=== PATIENT | female | born 1960 | race Caucasian/White ===

== ENCOUNTER 2020-10-08 12:33 | Emergency (ER) | payer OTHER, SELFPAY ==
--- NOTE | ~2020-10-08 | XR_ITS ---
XR finger 2nd RT min 2V 10/08/2020 12:59 Indication: Right second finger pain after dog bite Procedure: 4 views right second finger Comparison: No prior studies for comparison. Findings: There is a tuft fracture right second distal phalanx. Mild soft tissue swelling. No foreign body identified. There is polyarticular osteoarthritis. Impression: 1: Tuft fracture right second distal phalanx. Reviewed, dictated and finalized at location A. Impression: 1: Tuft fracture right second distal phalanx.
[2020-10-08 12:36] VITALS: BP 128/72; PULSE 78; RESP 18; TEMP 36.1; O2SAT 100
--- NOTE | 2020-10-08 13:05 | ED.ANIMALBIT ---
HPI - Animal Bite General Chief Complaint: Animal Bite Stated Complaint: Dog Bites Time Seen by Provider: 10/08/20 12:40 History of Present Illness HPI narrative: 60 yo female w/ no significant PMH presents to the ED for dog bites. She was attempting to break up a fight between her 2 dogs when she sustained bites to both hands. The dogs are up to date on the vaccinations. Unsure of her last tetanus shot. Pain is moderate. No weakness, numbness. Related Data Allergies Allergy/AdvReac Type Severity Reaction Status Date / Time aspirin Allergy Mild Vomiting Verified 10/08/20 12:50 codeine Allergy Unknown Hives Verified 10/08/20 12:50 Review of Systems Review of Systems: All systems reviewed & are unremarkable except as noted in HPI and below PMFSH Family History Family History Other Diabetes mellitus Family history of arthritis Family history of cardiovascular disease Family history of malignant neoplasm Hypertension Social History Social History Alcohol intake: current Exam Const: General: healthy appearing, no acute distress and alert Orientation/consciousness: patient oriented x3 HENMT: Head: normal to inspection Resp: Effort & Inspection: normal respiratory effort Auscultation: clear to auscultation bilaterally, no rales, no rhonchi and no wheezes Cardio: Jugular venous distension: no JVD Rate: regular rate Rhythm: regular rhythm Heart sounds: no murmurs Other: 2+ radial pulses bilaterally Skin: Other: Superficial skin tears to left hand. Puncture wound to distal right index finger. Minimal damage to nail and nail bed. Neuro: General: patient oriented x3 and moves all extremities Speech: normal speech Gait exam (Neuro): Normal gait present Extrem: Other: Full ROM in all hands and fingers. Psych: Appearance: well kempt Affect: normal affect Course Vital Signs Vital signs: Vital Signs Temperature 36.1 C L 10/08/20 12:36 Pulse Rate 78 10/08/20 12:36 Respiratory Rate 18 10/08/20 12:36 Blood Pressure 128/72 10/08/20 12:36 Pulse Oximetry 100 10/08/20 12:36 Temperature 36.1 C L 10/08/20 12:36 Pulse Rate 78 10/08/20 12:36 Respiratory Rate 18 10/08/20 12:36 Blood Pressure 128/72 10/08/20 12:36 Pulse Oximetry 100 10/08/20 12:36 MDM - Animal Bite MDM Narrative Medical decision making narrative: She has an open fracture of the right index finger. Wound washed out extensively. tetanus up dated. Augmentin started. PLaced in finger splint. Dr. Triplett consulted. he will see her in clinic this week. Medical Records Attestation: I reviewed the patient's medical records. Imaging Data Radiologist's impression: ITS Impressions Finger X-Ray 10/08/20 13:05 Impression: 1: Tuft fracture right second distal phalanx. Discharge Plan Discharge Clinical Impression: Open fracture of tuft of distal phalanx of finger Dog bite Qualifiers: Encounter type: initial encounter Qualified Code(s): W54.0XXA - Bitten by dog, initial encounter Patient Disposition: Home, Self-Care Condition: Stable Instructions: Antibiotic Form, Animal Bite (ED), Finger Fracture (ED) Prescriptions: New amoxicillin-pot clavulanate [Augmentin] 875-125 mg tablet 1 tablet PO Q12H Qty: 20 RF: 0 Follow-up/Referrals: Dano Triplett MD [Physician] - Mer,OSCAR Salomon [Primary Care Provider] -
[2020-10-08] MEDS: AMOXICILLIN/CLAVULANATE K 875-125 MG TAB 1 TABLET PO (13:27)
[2020-10-08] MEDS: TETANUS,DIPHTHERIA,AC PERTUSSIS ADULT (0.5 ML) BOOSTRIX IM (13:27)
--- NOTE | 2020-10-19 09:43 | PC.NURSE ---
LATE ENTRY This note is being entered to document information to the patient's record. The following information was omitted on [10/19/20], by [Miri PRINCE for metal finger splint].
== END 2020-10-08 13:43 | disposition home or self-care (01) ==
LOC: ANHED 13:19
PROVIDERS: Emergency Provider Emergency Medicine; PCP Physician Assistant
DX: S62.630B Displaced fracture of distal phalanx of right index finger, initial encounter for open fracture (principal); W54.0XXA Bitten by dog, initial encounter; Z23 Encounter for immunization
CPT/HCPCS: 29130; 73140; 90471; 90715; 99283; A9270

== ENCOUNTER 2020-11-06 20:41 | Emergency (ER) | payer OTHER, SELFPAY ==
[2020-11-06 20:50] VITALS: BP 147/71; PULSE 124; RESP 18; TEMP 38; O2SAT 95
[2020-11-06 21:06] LABS: Basophils Percent Auto 0.3 % (0.2-1.2); Eosinophils Percent Auto 0.5 % (0-4.4); Hematocrit 35.7 % (37.0-47.0); Hemoglobin 11.9 g/dL (12.0-15.0); Immature Granulocyte Absolute 0.01 K/mm3 (0.00-0.031); Immature Granulocyte Percent A 0.1 % (0-0.5); Lymphocytes Absolute Auto 0.79 K/mm3 (0.9-3.2); Lymphocytes Percent Auto 10.6 % (18.3-44.2); Mean Corpuscular HGB Conc 33.3 g/dl (32-36); Mean Corpuscular Hemoglobin 29.2 pg (26-34); Mean Corpuscular Volume 87.5 fl (80-100); Mean Platelet Volume 9.3 fl (7.4-10.4); Monocytes Absolute Auto 0.1 K/mm3 (0.1-0.6); Monocytes Percent Auto 0.7 % (2.6-8.5); Neutrophils Absolute Auto 6.5 K/mm3 (1.3-6.7); Neutrophils Percent Auto 87.8 % (45.5-73.1); Platelet Count Result 163 k/mm3 (150-375); Red Blood Count 4.08 M/mm3 (4.2-5.4); Red Cell Distribution Width 13.7 % (11.5-14.5); White Blood Count 7.4 K/mm3 (4.5-10.0)
[2020-11-06 21:14] LABS: Lactic Acid Reflex 1.8 mmol/L (0.7-2.1)
[2020-11-06 21:15] LABS: INR 1.1; Prothrombin Time 14.3 Seconds (11.1-14.7)
[2020-11-06 21:15] LABS: Alanine Aminotransferase 74 U/L (4-35); Albumin Level 4.2 g/dL (3.5-5.1); Alkaline Phosphatase 97 U/L (38-126); Anion Gap 10 mmol/L (8-16); Aspartate Amino Transferase 103 U/L (14-36); Bilirubin,Total 0.7 mg/dL (0.2-1.3); Blood Urea Nitrogen 10 mg/dL (7-17); Calcium 9.1 mg/dL (8.4-10.2); Carbon Dioxide 21 mmol/L (22-30); Chloride 105 mmol/L (98-107); Estimated CRCL calculation 66 ml/min; Estimated Glomerular Filt Rate > 60; Glucose 127 mg/dL (65-105); Potassium 3.9 mmol/L (3.4-5.0); Sodium 136 mmol/L (137-145)
[2020-11-06 21:16] LABS: Partial Thromboplastin Time 29.6 SECONDS (22.3-36.8)
[2020-11-06 21:30] LABS: Bacteria Urine Trace /hpf; Mucus Urine Rare /lpf; RBC Urine 21-50 /hpf (0-2); Squamous Epithelial Cell Urine Occasional /hpf (Few); WBC Urine >75 /hpf
[2020-11-06 21:39] LABS: Add Urine Microscopic? YES; Appearance Urine Clear (Clear); Bilirubin Urine Negative (Negative); Blood Urine 2+ (Negative); Color Urine Yellow (Yellow); Glucose Urine UA Negative (Negative); Ketones Urine Negative (Negative); Leukocyte Esterase Ur 1+ LEU/UL (Negative); Nitrate Urine Negative (Negative); Protein Urine 2+ mg/dL (Negative); Specific Grav Ur 1.025 (1.001-1.035)
--- NOTE | 2020-11-06 22:28 | ED.ABDPAIN ---
HPI - Abdominal Pain General Chief Complaint: Urogenital-Female Stated Complaint: uti Time Seen by Provider: 11/06/20 21:56 Source: patient Mode of arrival: ambulatory Limitations: no limitations History of Present Illness HPI narrative: 60-year-old with no major medical problems here with complaints of urinary frequency and burning for past 3 days. Patient states that she took Azo with no relief. She states that she was at work she had intense pain in the lower abdomen. She denies any fever or chills. She also states that she was nauseated and threw up once. MD elicited complaint: abdominal pain Pain Consistency: constant Location: suprapubic Severity: moderate Quality: sharp Migration to: no migration Relieving factors: nothing Related Data Allergies Allergy/AdvReac Type Severity Reaction Status Date / Time aspirin Allergy Mild Vomiting Verified 10/08/20 12:50 codeine Allergy Unknown Hives Verified 10/08/20 12:50 Review of Systems Review of Systems: All systems reviewed & are unremarkable except as noted in HPI and below Constitutional: Constitutional: Reports no additional constitutional complaints Eyes: Eyes: Reports no additional eye complaints ENT: Reports system reviewed and no additional complaints, except as documented Cardiovascular: Cardiovascular: Reports no additional cardiovascular complaints Respiratory: Respiratory: Reports no additional respiratory complaints Gastrointestinal: Gastrointestinal: Reports no additional gastrointestinal complaints Genitourinary: Genitourinary: Reports as per HPI Musculoskeletal: Musculoskeletal: Reports no additional musculoskeletal complaints Integumentary/Breasts: Skin/Breast: Reports system reviewed and no additional complaints, except as docu PMFSH Family History Family History Other Diabetes mellitus Family history of arthritis Family history of cardiovascular disease Family history of malignant neoplasm Hypertension Social History Social History Alcohol intake: current Gender identity (if verbalized by the patient): Female Exam Narrative: Exam Narrative: GENERAL: Well-appearing, well-nourished, and in no acute distress. HEAD: Normocephalic, atraumatic. EYES: PERRLA and EOMI. NECK: Supple. CHEST: Clear to auscultation. No respiratory distress. HEART: Regular rate and rhythm. No murmur heard. Normal peripheral pulses. ABDOMEN: Soft, mild suprapubic tenderness , nondistended, normal active bowel sounds. No CVA tenderness EXTREMITIES: Normal range of motion. No edema. SKIN: Warm, dry, no rash. NEURO: No focal deficits. Alert and oriented x3. PSYCH: Normal mood and affect. Course Course Emergency Course: Inform patient about her lab work. Advised her to drink plenty of fluids take antibiotic as prescribed. Vital Signs Vital signs: Vital Signs Temperature 38.0 C H 11/06/20 20:50 Pulse Rate 124 H 11/06/20 20:50 Respiratory Rate 18 11/06/20 20:50 Blood Pressure 147/71 H 11/06/20 20:50 Pulse Oximetry 95 11/06/20 20:50 Temperature 38.0 C H 11/06/20 20:50 Pulse Rate 124 H 11/06/20 20:50 Respiratory Rate 18 11/06/20 20:50 Blood Pressure 147/71 H 11/06/20 20:50 Pulse Oximetry 95 11/06/20 20:50 MDM - Abdominal Pain Lab Data Result diagrams: 11/06/20 20:54 11/06/20 20:54 Labs: Lab Results 11/06/20 11/06/20 11/06/20 Range/Units 20:53 20:54 20:54 WBC 7.4 (4.5-10.0) K/mm3 RBC 4.08 L (4.2-5.4) M/mm3 Hgb 11.9 L (12.0-15.0) g/dL Hct 35.7 L (37.0-47.0) % MCV 87.5 (80-100) fl MCH 29.2 (26-34) pg MCHC 33.3 (32-36) g/dl RDW 13.7 (11.5-14.5) % Plt Count 163 (150-375) k/mm3 MPV 9.3 (7.4-10.4) fl Immature Gran % (Auto) 0.1 (0-0.5) % Neut % (Auto) 87.8 H (45.5-73.1) % Lymph % (Auto) 10.6 L (18.3-44.2) % M
[2020-11-06 22:49] VITALS: BP 132/86; PULSE 94; RESP 16; TEMP 36.8; O2SAT 99
[2020-11-06] MEDS: CIPROFLOXACIN 500 MG TAB PO (22:49)
== END 2020-11-06 22:50 | disposition home or self-care (01) ==
PROVIDERS: Emergency Medicine; Emergency Provider Family Medicine; PCP Physician Assistant
DX: N39.0 Urinary tract infection, site not specified (principal)
CPT/HCPCS: 36415; 80053; 81001; 83605; 85025; 85610; 85730; 87077; 87086; 87088; 87186; 99283; A9270

== ENCOUNTER 2020-11-09 14:15 | Inpatient (IN) | payer OTHER, SELFPAY ==
--- NOTE | ~2020-11-09 | CT_ITS ---
EXAMINATION: CT abdomen pelvis wo con EXAM DATE: 11/09/2020 14:45 INDICATION: Abdominal pain L flank and groin pain w/ N/V, and painful urination x5days. TECHNIQUE: Spiral CT of the abdomen and pelvis was performed without contrast. Axial, coronal and sag ittal images were reviewed. The dose-length product (DLP) for this examination was 344.55 mGy-cm. T he exposure was tailored according to patient size (auto mA exposure control), and iterative reconstr uction (ASIR) was used as additional dose reduction technique. There is no prior study for compariso n. FINDINGS: There is no nephrolithiasis or hydronephrosis. The uterus is not identified and has likel y been surgically resected. The bladder is undistended at time of imaging. The liver, spleen, adren al glands and pancreas are unremarkable. Gallbladder is unremarkable. No biliary obstruction. Ther e is no retroperitoneal or pelvic lymphadenopathy. Gggg-[id number] tiny umbilical fat-containing h ernia. The appendix is normal. There is mild sigmoid colonic diverticulosis. There is no adjacent inflammat ory change to suggest diverticulitis. The stomach and small bowel are unremarkable. There is expecte d amount of colonic stool. No free intraperitoneal gas. The heart is normal in size. There are n o pericardial or pleural effusions. The lung bases are unremarkable. There is mild to moderate insurance adviser corrina compression fracture of the L1 vertebral body. There is advanced lower lumbar facet arthropathy. IMPRESSION: 1. No nephrolithiasis, hydronephrosis or acute intra-abdominal findings. Reviewed, dictated and finalized at location A.
[2020-11-09 14:56] VITALS: BP 156/83; PULSE 100; RESP 20; TEMP 37.8; O2SAT 99
[2020-11-09 14:59] LABS: Basophils Absolute Auto 0.04 K/mm3 (0.00-0.10); Basophils Percent Auto 0.4 % (0.0-1.0); Eosinophils Absolute Auto 0.02 K/mm3 (0.02-0.50); Eosinophils Percent Auto 0.2 % (1.0-6.0); Hematocrit 33.1 % (35.0-49.0); Hemoglobin 11.1 g/dL (12.0-15.0); Immature Granulocyte Absolute 0.04 K/mm3 (0.00-0.00); Immature Granulocyte Percent A 0.4 % (0.0-0.0); Lymphocytes Absolute Auto 0.71 K/mm3 (1.10-4.50); Lymphocytes Percent Auto 7.4 % (18.0-42.0); Mean Corpuscular HGB Conc 33.5 g/dL (32.0-36.0); Mean Corpuscular Hemoglobin 29.6 pg (27.0-31.0); Mean Corpuscular Volume 88.3 fL (78.0-102.0); Mean Platelet Volume 9.3 fl (9.2-11.8); Monocytes Absolute Auto 0.46 K/mm3 (0.10-0.90); Monocytes Percent Auto 4.8 % (2.0-11.0); Neutrophils Absolute Auto 8.3 K/mm3 (1.7-7.2); Neutrophils Percent Auto 86.8 % (50.0-70.0); Platelet Count Result 186 K/mm3 (150-420); Red Blood Count 3.75 M/mm3 (4.20-5.40); Red Cell Distribution Width 13.6 % (11.6-14.4); White Blood Count 9.6 K/mm3 (4.8-10.8)
[2020-11-09 15:05] LABS: Appearance Urine Clear (Clear); Bilirubin Urine Negative (Negative); Blood Urine 2+ (Negative); Glucose Urine UA Negative (Negative); Ketones Urine Negative (Negative); Leukocyte Esterase Ur 3+ (Negative); Nitrate Urine Negative (Negative); Protein Urine Trace (Negative); Urobilinogen Urine 0.2 mg/dL (0.2-1.0)
[2020-11-09] MEDS: IBUPROFEN 600 MG TABLET PO (15:06)
[2020-11-09 15:10] LABS: Add Urine Microscopic? YES; Bacteria Urine 3+ /hpf; Color Urine Light Yellow (Yellow); Squamous Epithelial Cell Urine Rare /hpf (Few); WBC Urine 16-20 /hpf (0-3)
[2020-11-09 15:14] LABS: Alanine Aminotransferase 181 U/L (14-59); Albumin Level 3.4 g/dL (3.4-5.0); Alkaline Phosphatase 225 U/L (46-116); Anion Gap 11 mmol/L (8-16); Aspartate Amino Transferase 103 U/L (15-37); Bilirubin,Total 0.5 mg/dL (0.00-1.00); Blood Urea Nitrogen 7 mg/dL (7-18); Calcium 8.6 mg/dL (8.5-10.1); Carbon Dioxide 26 mmol/L (21-32); Chloride 101 mmol/L (98-108); Estimated CRCL calculation 50 ml/min; Estimated Glomerular Filt Rate 51; Glucose 123 mg/dL (70-99); Osmolality Calculated 285 mOsm/kg (285-295); Potassium 3.2 mmol/L (3.5-5.1); Sodium 138 mmol/L (136-145); Total Protein 6.9 g/dL (6.4-8.2)
--- NOTE | 2020-11-09 15:55 | ED.FEMALEGU ---
HPI - Female Genitourinary General Chief complaint: Urogenital-Female Stated complaint: fever, chills diagnoed with UTI Friday Source: patient and family Mode of arrival: ambulatory Limitations: no limitations History of Present Illness HPI Narrative: this is a 60-year-old female that was recently seen at [facility] and started on p.o. antibiotics for urinary tract infection. The patient presents to our emergency department with continued urinary tract symptoms of flank discomfort and suprapubic pain with some dysuria with no hematuria fevers up to 102. Currently there is no nausea vomiting no shortness of breath no chest pain. MD elicited complaint: UTI Onset (ago): day(s) Location of symptoms: suprapubic Severity: moderate Female Urogenital Radiation: Suprapubic Severity scale (1-10): 6 Quality of pain: burning Consistency: constant Urinary symptoms: Dysuria and Flank Pain Exacerbating factors: urination Associated symptoms: weakness and fever Related Data Allergies Allergy/AdvReac Type Severity Reaction Status Date / Time aspirin Allergy Mild Vomiting Verified 10/08/20 12:50 codeine Allergy Unknown Hives Verified 10/08/20 12:50 Review of Systems Review of Systems: All systems reviewed & are unremarkable except as noted in HPI and below PMFSH Past Medical History Medical History Patient denies medical problems Family History Family History Other Diabetes mellitus Family history of arthritis Family history of cardiovascular disease Family history of malignant neoplasm Hypertension Social History Social History Alcohol intake: current Gender identity (if verbalized by the patient): Female Exam Const: General: no acute distress and alert HENMT: Head: normal to inspection Eyes: Conjunctivae: conjunctivae normal Pupils: Equal, round and reactive pupils present EOM: EOMs intact bilaterally Neck: Neck: normal visual inspection, no lymphadenopathy and no meningeal signs Resp: Effort & Inspection: normal respiratory effort Auscultation: clear to auscultation bilaterally Cardio: Rate: regular rate Rhythm: regular rhythm GI: GI Palp: Yes Tenderness to palpation present (GI) Urinary Catheter: Urinary Catheter: patent and draining Back/Spine/Pelvis: Back: CVA tenderness Skin: General skin exam: normal color Rashes: no rashes Neuro: General: patient oriented x3, moves all extremities, no meningeal signs and no focal motor deficits Extrem: General: normal to inspection and no pedal edema Psych: Mental Status: mental status grossly normal Affect: normal affect Course Course Emergency Course: patient received IV ceftriaxone and reviewed labs and a urinalysis along with some her CT scan and will admit the patient for observation. Vital Signs Vital signs: Vital Signs Temperature 37.8 C H 11/09/20 14:56 Pulse Rate 100 11/09/20 14:56 Respiratory Rate 20 11/09/20 14:56 Blood Pressure 156/83 H 11/09/20 14:56 Pulse Oximetry 99 11/09/20 14:56 Temperature 37.8 C H 11/09/20 14:56 Pulse Rate 100 11/09/20 14:56 Respiratory Rate 20 11/09/20 14:56 Blood Pressure 156/83 H 11/09/20 14:56 Pulse Oximetry 99 11/09/20 14:56 MDM - Female Genitourinary Lab Data Result diagrams: 11/09/20 14:53 11/09/20 14:53 Labs: Lab Results 11/09/20 11/09/20 11/09/20 Range/Units 14:30 14:53 14:53 WBC 9.6 (4.8-10.8) K/mm3 RBC 3.75 L (4.20-5.40) M/mm3 Hgb 11.1 L (12.0-15.0) g/dL Hct 33.1 L (35.0-49.0) % MCV 88.3 (78.0-102.0) fL MCH 29.6 (27.0-31.0) pg MCHC 33.5 (32.0-36.0) g/dL RDW 13.6 (11.6-14.4) % Plt Count 186 (150-420) K/mm3 MPV 9.3 (9.2-11.8) fl Immature Gran % (Auto) 0.4 H (0.0-0.0) % Neut % (Auto) 86.8 H (50.0-70.
[2020-11-09 16:19] VITALS: BP 110/60; PULSE 77; RESP 20; TEMP 36.9; O2SAT 99
[2020-11-09 16:44] VITALS: PULSE 78; RESP 20; O2SAT 99
[2020-11-09 17:00] VITALS: BMI 21.6
--- NOTE | 2020-11-09 17:00 | ADMGEN ---
This patient, Surekha Fisher, was admitted to 2nd Floor Room 209-1 for pyelonephritis. Patient/family oriented to hospital policies and general routines including ID bracelet, bed and alarms, visiting hours, pain management, procedures, bathroom and other care routines, personal items, smoking policy, room service/diet, and visiting hours. Patient states that she had her COVID vaccine in Jul 2020 and JUL 2020 Information on how to activate the Rapid Response Team has been discussed. Patient/Family are encouraged to report perceived risks to care and to ask questions if they do not understand what they are told or what they should do.
[2020-11-09] MEDS: SODIUM CHLORIDE 0.9% IV 1,000 ML 100 ML IV CONT (17:22)
[2020-11-09 20:00] VITALS: BP 110/61; PULSE 63; TEMP 37.1; O2SAT 98
[2020-11-10] VITALS (7 sets, daily range): BP systolic 110–129; BP diastolic 61–75; PULSE 61–88; RESP 14–18; TEMP 36.8–37.8; O2SAT 93–98
--- NOTE | 2020-11-10 00:05 | PC.NURSE ---
Patient c/o nausea, chills, and heartburn. PRN mylanta and tylenol given,
[2020-11-10] MEDS: MAG HYDROX/AL HYDROX/SIMETH 30 ML UDC PO (00:10)
[2020-11-10] MEDS: ACETAMINOPHEN 325 MG TABLET 650 MG PO ×2 (00:10→07:56)
--- NOTE | 2020-11-10 00:25 | PC.NURSE ---
Patient reports improvement in nausea and chills. No emesis
[2020-11-10] MEDS: SODIUM CHLORIDE 0.9% IV 1,000 ML 100 ML IV CONT ×2 (04:12→14:19)
[2020-11-10 05:37] LABS: Basophils Absolute Auto 0.02 K/mm3 (0.00-0.10); Basophils Percent Auto 0.2 % (0.0-1.0); Eosinophils Absolute Auto 0.02 K/mm3 (0.02-0.50); Eosinophils Percent Auto 0.2 % (1.0-6.0); Hematocrit 29.8 % (35.0-49.0); Hemoglobin 9.9 g/dL (12.0-15.0); Immature Granulocyte Absolute 0.04 K/mm3 (0.00-0.00); Immature Granulocyte Percent A 0.5 % (0.0-0.0); Lymphocytes Absolute Auto 1.02 K/mm3 (1.10-4.50); Lymphocytes Percent Auto 12.5 % (18.0-42.0); Mean Corpuscular HGB Conc 33.2 g/dL (32.0-36.0); Mean Corpuscular Hemoglobin 29.2 pg (27.0-31.0); Mean Corpuscular Volume 87.9 fL (78.0-102.0); Mean Platelet Volume 9.7 fl (9.2-11.8); Monocytes Absolute Auto 0.78 K/mm3 (0.10-0.90); Monocytes Percent Auto 9.5 % (2.0-11.0); Neutrophils Absolute Auto 6.3 K/mm3 (1.7-7.2); Neutrophils Percent Auto 77.1 % (50.0-70.0); Platelet Count Result 166 K/mm3 (150-420); Red Blood Count 3.39 M/mm3 (4.20-5.40); Red Cell Distribution Width 13.8 % (11.6-14.4); White Blood Count 8.2 K/mm3 (4.8-10.8)
[2020-11-10 05:57] LABS: Alanine Aminotransferase 183 U/L (14-59); Albumin Level 2.8 g/dL (3.4-5.0); Alkaline Phosphatase 225 U/L (46-116); Anion Gap 9 mmol/L (8-16); Aspartate Amino Transferase 112 U/L (15-37); Bilirubin,Total 0.4 mg/dL (0.00-1.00); Blood Urea Nitrogen 6 mg/dL (7-18); Calcium 8.2 mg/dL (8.5-10.1); Carbon Dioxide 27 mmol/L (21-32); Chloride 105 mmol/L (98-108); Estimated CRCL calculation 63 ml/min; Estimated Glomerular Filt Rate > 60; Glucose 117 mg/dL (70-99); Osmolality Calculated 290 mOsm/kg (285-295); Potassium 3.5 mmol/L (3.5-5.1); Sodium 141 mmol/L (136-145); Total Protein 6.1 g/dL (6.4-8.2)
--- NOTE | 2020-11-10 07:30 | PCDIET ---
pt resting in bed, reports will attempt to eat some breakfast, no n/v at this time
--- NOTE | 2020-11-10 09:05 | PC.NURSE ---
pt is found in bathroom vomiting in toilet and emesis on floor, pt reports food did not sit well, Wilian MACHINE PRECISION ENGRAVER in room and will order anti-nausea medication
[2020-11-10] MEDS: ONDANSETRON INJ 4 MG/2 ML VIAL IV PUSH ×2 (09:15→16:05)
--- NOTE | 2020-11-10 09:56 | PM.IMHP ---
H&P: HPI History of Present Illness Date/Time: 11/10/20 09:56 Pt is admitted into Observation for treatment of an unresolved UTI. Surekha Fisher is a 60 year old female who comes to the hospital for UTI symptoms that are not resolving after being seen at an [facility] and treated with Cipro. Pt states she was having flank pain and lower abdominal pain that would change sides. This morning her pain is lower abdomen and lower right abdomen and improving. Pt was nauseated with vomiting this AM. She is better now after Zofran. Pt denies any other issues at this time. <REBEKAH BennettC - Last Filed: 11/10/20 13:38> Chief Complaint: Flank and abdominal pain, Dysuria <MEGGAN Bennett - Last Filed: 11/10/20 13:38> Review of Systems Constitutional: Constitutional: Reports no additional constitutional complaints, Denies body ache(s), Denies chills, Denies fever(s) and Denies headache(s) <REBEKAH BennettC - Last Filed: 11/10/20 13:38> Cardiovascular: Cardiovascular: Reports no additional cardiovascular complaints, Denies chest pain and Denies chest pain at rest <MEGGAN Bennett - Last Filed: 11/10/20 13:38> Respiratory: Respiratory: Reports no additional respiratory complaints, Denies cough, Denies dyspnea and Denies dyspnea on exertion <REBEKAH BennettC - Last Filed: 11/10/20 13:38> Gastrointestinal: Gastrointestinal: Reports abdominal pain (as noted in HPI) <REBEKAH BennettC - Last Filed: 11/10/20 13:38> Musculoskeletal: Musculoskeletal: Reports no additional musculoskeletal complaints <Ignacio Fay APN-C - Last Filed: 11/10/20 13:38> Neurologic: Reports system reviewed and no additional complaints, except as documented, Denies dizziness, Denies headache(s) and Denies numbness <REBEKAH BennettC - Last Filed: 11/10/20 13:38> Psychiatric: Psychiatric: Reports no additional psychiatric complaints <REBEKAH BennettC - Last Filed: 11/10/20 13:38> [facility] Past Medical History Medical History: Medical History (Updated 11/10/20 @ 13:03 by MEGGAN Bennett) Closed fracture of left tibial plateau Closed nondisp fx of lateral condyle of left tibia w/delayed healing Lumbar radiculopathy, acute Patient denies medical problems <MEGGAN Bennett - Last Filed: 11/10/20 13:38> Family History Family History: Family History Other Diabetes mellitus Family history of arthritis Family history of cardiovascular disease Family history of malignant neoplasm Hypertension <MEGGAN Bennett - Last Filed: 11/10/20 13:38> Social History Social History: Social History Years smoked: 5 Smoking status: Former smoker Tobacco type: cigarettes Alcohol intake: never Substance use: never Gender identity (if verbalized by the patient): Female Sexual Orientation (if Verbalized by the Patient): Straight or Heterosexual Spiritual care concerns: No <MEGGAN Bennett - Last Filed: 11/10/20 13:38> Meds Home Medications and Allergies Home medications: Home Medications Medication Instructions Recorded Confirmed Type ciprofloxacin HCl 500 mg PO Q12H #14 tablet 11/06/20 11/09/20 Rx <MEGGAN Bennett - Last Filed: 11/10/20 13:38> Allergies/Adverse reactions: Allergies Allergy/AdvReac Type Severity Reaction Status Date / Time aspirin Allergy Mild Vomiting Verified 10/08/20 12:50 codeine Allergy Unknown Hives Verified 10/08/20 12:50 amoxicillin [From Augmentin] Allergy Unknown Verified 11/09/20 16:18 clavulanic acid Allergy Unknown Verified 11/09/20 16:18 [From Augmentin] <MEGGAN Bennett - Last Filed: 11/10/20 13:38> Vital Signs Vital Signs - 24 hr 11/09/20 14:56 11/09/20 16:19 11/09/20 16:44 Temperature 100.1 F H 98.4 F Pulse Rate 100 77 78 Respiratory Rate 20 20 20 Blood Pre
--- NOTE | 2020-11-10 10:35 | PC.NURSE ---
pt resting in bed, reports feeling better at this time, denies any needs at this time.
--- NOTE | 2020-11-10 11:31 | PC.NURSE ---
pt resting in bed, states she will attempt to eat lunch, denies any n/v at this time.
--- NOTE | 2020-11-10 12:40 | PC.NURSE ---
pt reports no nausea or emesis after eating lunch
--- NOTE | 2020-11-10 13:36 | PC.NURSE ---
pt sleeping, respirations even and regular, no evidence of distress noted at this time.
--- NOTE | 2020-11-10 16:00 | PC.NURSE ---
pt c/o nausea, and just not feeling well pt vital obtained, temp of 100.1, pt reports she cannot swallow tylenol for the fever at this time.
--- NOTE | 2020-11-10 17:10 | PC.NURSE ---
pt unable to eat dinner, c/o nausea and episode of dry heaves, family at bedside
--- NOTE | 2020-11-10 18:39 | PC.NURSE ---
pt is sleeping, respirations even and regular, no evidence of distress noted.
--- NOTE | 2020-11-10 21:20 | PC.NURSE ---
pt called out with c/o nausea, no emesis yet, pt states may be from the new antibiotic
[2020-11-10] MEDS: PROCHLORPERAZINE EDISYLATE 10 MG/2 ML VIAL 5 MG IV PUSH (21:23)
--- NOTE | 2020-11-10 21:52 | PC.NURSE ---
pt reports she feels much better at this time
--- NOTE | 2020-11-10 22:30 | PC.NURSE ---
Resting quietly, fluids infusing, no further nausea noted
[2020-11-11] MEDS: SODIUM CHLORIDE 0.9% IV 1,000 ML 100 ML IV CONT ×3 (00:57→20:46)
[2020-11-11 04:00] VITALS: BP 126/75; PULSE 68; RESP 20; TEMP 36.4; O2SAT 94
[2020-11-11] MEDS: PROCHLORPERAZINE EDISYLATE 10 MG/2 ML VIAL 5 MG IV PUSH (04:16)
--- NOTE | 2020-11-11 04:20 | PC.NURSE ---
Pt complained of nausea. Compazine given IV per RN.
[2020-11-11 05:40] LABS: Hematocrit 29.3 % (35.0-49.0); Hemoglobin 9.8 g/dL (12.0-15.0); Mean Corpuscular HGB Conc 33.4 g/dL (32.0-36.0); Mean Corpuscular Hemoglobin 29.3 pg (27.0-31.0); Mean Corpuscular Volume 87.7 fL (78.0-102.0); Mean Platelet Volume 9.7 fl (9.2-11.8); Platelet Count Result 180 K/mm3 (150-420); Red Blood Count 3.34 M/mm3 (4.20-5.40); Red Cell Distribution Width 13.7 % (11.6-14.4); White Blood Count 8.4 K/mm3 (4.8-10.8)
[2020-11-11 05:46] LABS: Anion Gap 10 mmol/L (8-16); Blood Urea Nitrogen 6 mg/dL (7-18); Calcium 8.4 mg/dL (8.5-10.1); Carbon Dioxide 26 mmol/L (21-32); Chloride 105 mmol/L (98-108); Estimated CRCL calculation 70 ml/min; Estimated Glomerular Filt Rate > 60; Glucose 114 mg/dL (70-99); Osmolality Calculated 290 mOsm/kg (285-295); Potassium 3.4 mmol/L (3.5-5.1); Sodium 141 mmol/L (136-145)
[2020-11-11] MEDS: ONDANSETRON INJ 4 MG/2 ML VIAL IV PUSH (06:51)
--- NOTE | 2020-11-11 06:59 | PC.NURSE ---
Pt ambulated to BR to void. States nausea worse when up. Zofran given IVP per RN.
[2020-11-11 07:39] VITALS: BP 146/79; PULSE 66; RESP 16; TEMP 35.7; O2SAT 96
[2020-11-11] MEDS: POTASSIUM CHLORIDE 20 MEQ TABLET PO (08:35)
--- NOTE | 2020-11-11 08:38 | PM.IMPN ---
Progress Note: A&P Assessment and Plan (1) Pyelonephritis: Code(s): N12 - Tubulo-interstitial nephritis, not specified as acute or chronic Status: Acute Assessment and Plan: Condition that failed prior outpatient treatment, IVF NS @ 100/h, Rocephin, Symptoms improving, Cx pending, monitor VS, encourage PO fluids 11/11/2020 Urine Cx from 11/06/2020 resulted with sensitivity, found E coli resistant to Rocephin with Imipenem susceptibility, Rocephin stopped and Imipenem was started 11/10/2020, Gram staim performed yesterday resulting in Gram Negative Rods. (2) Nausea & vomiting: Code(s): R11.2 - Nausea with vomiting, unspecified Status: Acute Assessment and Plan: Pt had N&V this AM, Zofran given and this worked well, Pt did have lunch today and tolerated this well. 11/11/2020 No vomiting this AM however Pt still with nausea, anticipate this improving now that Pt is on Imipenem, 1 time dose of Reglan given. Subjective Date/time seen: 11/11/20 08:38 Although Surekha was nauseated this AM she says she feels better than yesterday. She was given a 1 time does of Reglan 10 mg to see if this helped her nausea better than Zofran or Compazine. Pt has not called out over the next hour d/t nausea. May consider changing Compazine to Reglan. Pt states she is able to eat and drink. She denies any other issues at this time. She admits she is tired. Review of Systems Constitutional: Constitutional: Reports no additional constitutional complaints, Denies body ache(s), Denies chills, Denies fever(s) and Denies headache(s) Cardiovascular: Cardiovascular: Reports no additional cardiovascular complaints, Denies chest pain and Denies chest pain at rest Respiratory: Respiratory: Reports no additional respiratory complaints, Denies cough, Denies dyspnea and Denies dyspnea on exertion Gastrointestinal: Gastrointestinal: Reports no additional gastrointestinal complaints, Reports nausea and Denies vomiting Musculoskeletal: Musculoskeletal: Reports no additional musculoskeletal complaints Neurologic: Reports system reviewed and no additional complaints, except as documented Exam Const: General: cooperative, healthy appearing, comfortable, no acute distress, alert, awake and Physically active Nutritional Appearance: average body habitus HENMT: Head: normal to inspection and normocephalic Ears: hearing grossly normal bilaterally Resp: Effort & Inspection: normal respiratory effort, no cough and not labored Auscultation: clear to auscultation bilaterally Cardio: Jugular venous distension: no JVD Rate: regular rate Heart sounds: S1 normal heart sound present and S2 normal heart sound present GI: GI Palp: Yes Soft to palpation and No Tenderness to palpation present (GI) Auscultation: normal bowel sounds Neuro: General: oriented to person, oriented to place and oriented to time Cranial nerves: Yes CN's II-XII intact bilaterally (grossly intact) Cognition (Neuro): normal cognition Speech: normal speech Extrem: General: normal to inspection and no pedal edema Psych: Appearance: grossly normal Mental Status: mental status grossly normal Speech and movement: Normal speech and movement present Affect: normal affect Attitude: cooperative Thought process: Normal thought process present Objective Data Vital Signs Vital Signs: Vital Signs - 24 hr 11/10/20 12:00 11/10/20 16:00 11/10/20 20:55 Temperature 98.3 F 100.1 F H 98.6 F Pulse Rate 61 88 77 Respiratory Rate 18 18 18 Blood Pressure 124/69 129/74 129/74 Pulse Oximetry 97 97 94 11/10/20 23:47 11/11/20 04:00 11/11/20 07:39 Temperature 98.7 F 97.6 F 96.2 F L Pulse Rate 70 68 66 Respiratory Rate 20 16 Blood Pressure 126/75 126/75 146/79 H Pulse Oximetry 93 94 96 Intake/Output Intake/Output: Intake & Output 11/08/20 11/09/20 11/10/20 11/11/20 23:59 23:59 23:59 23:59 Intake Total 290 4050 1250 Output Total 120 1700 Balance 290 3930 -450 Meds/Results
[2020-11-11] MEDS: METOCLOPRAMIDE HCL INJ 10 MG/2 ML VIAL IV PUSH (10:01)
--- NOTE | 2020-11-11 11:57 | PC.NURSE ---
patient changed to inpatient at this time 1151. front desk administrator aware.
[2020-11-11 16:00] VITALS: BP 147/71; PULSE 59; RESP 16; TEMP 36.8; O2SAT 99
[2020-11-11 20:00] VITALS: BP 147/78; PULSE 64; RESP 16; TEMP 36.9; O2SAT 97
--- NOTE | 2020-11-11 20:12 | PC.NURSE ---
pt requests fruit cup, reports nausea is gone, call light in reach
[2020-11-11 23:31] VITALS: BP 126/77; PULSE 77; RESP 18; TEMP 37.2; O2SAT 95
--- NOTE | 2020-11-11 23:33 | PC.NURSE ---
States is feeling better, no n/v at this time, fluids infusing for hydration, no pain
--- NOTE | 2020-11-12 01:33 | PC.NURSE ---
fluids infusing, voices no complaints at this time
--- NOTE | 2020-11-12 03:30 | PC.NURSE ---
REsting with eyes closed, fluids infusing
[2020-11-12 04:00] VITALS: BP 147/76; PULSE 64; RESP 18; TEMP 37.2; O2SAT 95
--- NOTE | 2020-11-12 05:01 | PC.NURSE ---
Resting in bed, watching TV at this time, fluids infusing, no nausea
[2020-11-12 05:58] LABS: Hematocrit 30.2 % (35.0-49.0); Hemoglobin 9.8 g/dL (12.0-15.0); Mean Corpuscular HGB Conc 32.5 g/dL (32.0-36.0); Mean Corpuscular Hemoglobin 28.6 pg (27.0-31.0); Mean Platelet Volume 9.9 fl (9.2-11.8); Platelet Count Result 224 K/mm3 (150-420); Red Blood Count 3.43 M/mm3 (4.20-5.40); Red Cell Distribution Width 13.3 % (11.6-14.4); White Blood Count 6.1 K/mm3 (4.8-10.8)
[2020-11-12 06:15] LABS: Anion Gap 7 mmol/L (8-16); Blood Urea Nitrogen 5 mg/dL (7-18); Calcium 8.4 mg/dL (8.5-10.1); Carbon Dioxide 28 mmol/L (21-32); Chloride 106 mmol/L (98-108); Estimated CRCL calculation 63 ml/min; Estimated Glomerular Filt Rate > 60; Glucose 106 mg/dL (70-99); Osmolality Calculated 289 mOsm/kg (285-295); Potassium 3.7 mmol/L (3.5-5.1); Sodium 141 mmol/L (136-145)
[2020-11-12] MEDS: PROCHLORPERAZINE EDISYLATE 10 MG/2 ML VIAL 5 MG IV PUSH (06:33)
--- NOTE | 2020-11-12 06:34 | PC.NURSE ---
compazine given for nausea, states was having a headache and now nauseated,
--- NOTE | 2020-11-12 07:20 | PC.NURSE ---
Pt. up sitting in chair upon arrival for assessment. Pt. reports not wanting another IV and states she is feeling much better and would like to go home today. Pt. informed will evaluate and have speak c her during rounds. Pt. denies any sxs, VSS.
[2020-11-12 08:00] VITALS: BP 138/85; PULSE 63; RESP 18; TEMP 36.9; O2SAT 99
--- NOTE | 2020-11-12 10:14 | PM.IMPN ---
Progress Note: A&P Assessment and Plan (1) Pyelonephritis: Code(s): N12 - Tubulo-interstitial nephritis, not specified as acute or chronic Status: Acute Assessment and Plan: Condition that failed prior outpatient treatment, IVF NS @ 100/h, Rocephin, Symptoms improving, Cx pending, monitor VS, encourage PO fluids 11/11/2020 Urine Cx from 11/06/2020 resulted with sensitivity, found E coli resistant to Rocephin with Imipenem susceptibility, Rocephin stopped and Imipenem was started 11/10/2020, Gram stain performed yesterday resulting in Gram Negative Rods. 11/12/2020 Continue with Imipenem, No abdominal pain complaints today, appetite improving (2) Nausea & vomiting: Code(s): R11.2 - Nausea with vomiting, unspecified Status: Acute Assessment and Plan: Pt had N&V this AM, Zofran given and this worked well, Pt did have lunch today and tolerated this well. 11/11/2020 No vomiting this AM however Pt still with nausea, anticipate this improving now that Pt is on Imipenem, 1 time dose of Reglan given. 11/12/2020 Small episode of vomiting this AM, Tolerating PO fluids and food but with a decreased appetite which is getting better. Subjective Date/time seen: 11/12/20 10:14 Pt was wanting to go home today. I explained to her the need to finish 3 days of IV antibiotics since the first treatment failed and the first round of Rocephin was found resistant to her infection. Pt did agree to stay. She explained she had a little less nausea this AM but did have a small episode of vomiting. No CP, SOB, or other issues. Pt states her appetite is not back to normal but improved. Review of Systems Review of Systems: All systems reviewed & are unremarkable except as noted in HPI and below Exam Const: General: cooperative, comfortable, no acute distress, alert, awake and Physically active Nutritional Appearance: average body habitus Resp: Effort & Inspection: normal respiratory effort Auscultation: clear to auscultation bilaterally Cardio: Jugular venous distension: no JVD Rate: regular rate Heart sounds: S1 normal heart sound present and S2 normal heart sound present GI: GI Palp: Yes Soft to palpation and No Tenderness to palpation present (GI) Auscultation: normal bowel sounds Skin: General skin exam: normal color Neuro: General: oriented to person, oriented to place and oriented to time Cranial nerves: Yes CN's II-XII intact bilaterally (grossly intact) Cognition (Neuro): normal cognition Speech: normal speech Extrem: General: full ROM and no pedal edema Psych: Appearance: grossly normal Mental Status: mental status grossly normal Speech and movement: Normal speech and movement present Affect: normal affect Attitude: cooperative Thought process: Normal thought process present Objective Data Vital Signs Vital Signs: Vital Signs - 24 hr 11/11/20 16:00 11/11/20 20:00 11/11/20 23:31 Temperature 98.2 F 98.4 F 98.9 F Pulse Rate 59 L 64 77 Respiratory Rate 16 16 18 Blood Pressure 147/71 H 147/78 H 126/77 Pulse Oximetry 99 97 95 11/12/20 04:00 11/12/20 08:00 Temperature 98.9 F 98.4 F Pulse Rate 64 63 Respiratory Rate 18 18 Blood Pressure 147/76 H 138/85 Pulse Oximetry 95 99 Intake/Output Intake/Output: Intake & Output 11/09/20 11/10/20 11/11/20 11/12/20 23:59 23:59 23:59 23:59 Intake Total 290 4050 4135 1520 Output Total 120 2100 1000 Balance 290 3930 2035 520 Meds/Results Medications: Active Medications Generic Name Dose Route Start Last Admin Trade Name Freq PRN Reason Stop Dose Admin Acetaminophen 650 mg 11/09/20 16:00 11/10/20 07:56 Acetaminophen 325 Mg Tablet PO 650 mg Q4H PRN Administration Mild Pain (1-3) or Fever Al Hydrox/Mg Hydrox/Simethicone 30 ml 11/09/20 16:00 11/10/20 00:10 Mag Hydrox/Al Hydrox/Simeth 30 Ml Udc PO 30 ml QID PRN Administration Dyspepsia Enoxaparin Sodium 40 mg 11/10/20 09:00 11/12/20 08:52 Enoxaparin 40 Mg/0.4 Ml Syri
[2020-11-12 12:00] VITALS: BP 127/68; PULSE 65; RESP 20; TEMP 36.8; O2SAT 99
[2020-11-12] MEDS: ONDANSETRON INJ 4 MG/2 ML VIAL IV PUSH ×2 (13:40→20:51)
--- NOTE | 2020-11-12 14:14 | PC.NURSE ---
Pt. visiting c spouse at bedside, no c/o at this time. Call yap in reach.
[2020-11-12 16:00] VITALS: BP 122/78; PULSE 68; RESP 16; TEMP 36.9; O2SAT 98
[2020-11-12 20:00] VITALS: BP 119/72; PULSE 63; RESP 16; TEMP 37; O2SAT 95
[2020-11-12 23:39] VITALS: BP 118/71; PULSE 64; RESP 16; TEMP 36.6; O2SAT 94
[2020-11-13 04:00] VITALS: BP 132/80; PULSE 57; RESP 16; TEMP 36.7; O2SAT 95
[2020-11-13] MEDS: ONDANSETRON INJ 4 MG/2 ML VIAL IV PUSH ×2 (05:13→14:37)
[2020-11-13 05:32] LABS: Hematocrit 30.6 % (35.0-49.0); Hemoglobin 10.2 g/dL (12.0-15.0); Mean Corpuscular HGB Conc 33.3 g/dL (32.0-36.0); Mean Corpuscular Hemoglobin 29.4 pg (27.0-31.0); Mean Corpuscular Volume 88.2 fL (78.0-102.0); Mean Platelet Volume 9.3 fl (9.2-11.8); Platelet Count Result 271 K/mm3 (150-420); Red Blood Count 3.47 M/mm3 (4.20-5.40); Red Cell Distribution Width 13.2 % (11.6-14.4); White Blood Count 6.1 K/mm3 (4.8-10.8)
[2020-11-13 05:41] LABS: Anion Gap 9 mmol/L (8-16); Blood Urea Nitrogen 13 mg/dL (7-18); Calcium 8.5 mg/dL (8.5-10.1); Carbon Dioxide 28 mmol/L (21-32); Chloride 105 mmol/L (98-108); Estimated CRCL calculation 60 ml/min; Estimated Glomerular Filt Rate > 60; Glucose 106 mg/dL (70-99); Osmolality Calculated 294 mOsm/kg (285-295); Potassium 3.8 mmol/L (3.5-5.1); Sodium 142 mmol/L (136-145)
[2020-11-13 08:00] VITALS: BP 111/71; PULSE 63; RESP 18; TEMP 36.4; O2SAT 98
[2020-11-13 12:00] VITALS: BP 135/77; PULSE 62; RESP 18; TEMP 37.2; O2SAT 98
--- NOTE | 2020-11-13 12:35 | PM.DS ---
DS: Admitting Diagnosis Admitting Diagnosis Admitting Diagnosis: Pyelonephritis DS: Discharge Diagnosis Discharge Diagnosis (1) Pyelonephritis: Code(s): N12 - Tubulo-interstitial nephritis, not specified as acute or chronic Status: Acute Assessment and Plan: Condition that failed prior outpatient treatment, IVF NS @ 100/h, Rocephin, Symptoms improving, Cx pending, monitor VS, encourage PO fluids 11/11/2020 Urine Cx from 11/06/2020 resulted with sensitivity, found E coli resistant to Rocephin with Imipenem susceptibility, Rocephin stopped and Imipenem was started 11/10/2020, Gram stain performed yesterday resulting in Gram Negative Rods. 11/12/2020 Continue with Imipenem, No abdominal pain complaints today, appetite improving 11/13/2020 Pt has completed her 3rd day of IV Ab, Pt states she is ready to go home as she was yesterday as well, will be sending information to ID office as a referral for this Pt due to recurrent UTIs and current treated ESBL E coli UTI, Intermediate susceptability to Augmenting though Pt has had an adverse reaction to this, will send home with 10 days of Omnicef. (2) Nausea & vomiting: Code(s): R11.2 - Nausea with vomiting, unspecified Status: Acute Assessment and Plan: Pt had N&V this AM, Zofran given and this worked well, Pt did have lunch today and tolerated this well. 11/11/2020 No vomiting this AM however Pt still with nausea, anticipate this improving now that Pt is on Imipenem, 1 time dose of Reglan given. 11/12/2020 Small episode of vomiting this AM, Tolerating PO fluids and food but with a decreased appetite which is getting better. 11/13/2020 No N/V this AM and Pt was able to have breakfast and lunch without issues. DS: Summary Hospital Course Hospital Course: Pt has recieved 3 days of Imipenem and has been slowly feeling better. Pt wants to go home and have faxed over her information for a referral to ID for follow up. Time Spent with Patient Time attestation: Total time spent providing and/or coordinating discharge services: < 30 minutes Exam Const: General: cooperative, healthy appearing, comfortable, no acute distress, alert, awake and Physically active Nutritional Appearance: average body habitus Resp: Effort & Inspection: normal respiratory effort Cardio: Rate: regular rate GI: Inspection: other (Improved appetite today without N/V) Skin: General skin exam: normal color and dry skin Neuro: General: oriented to person, oriented to place and oriented to time Cranial nerves: Yes CN's II-XII intact bilaterally (grossly intact) Cognition (Neuro): normal cognition Speech: normal speech Extrem: General: normal to inspection, full ROM and no pedal edema Psych: Appearance: grossly normal Mental Status: mental status grossly normal Speech and movement: Normal speech and movement present Affect: normal affect Attitude: cooperative Thought process: Normal thought process present DS: Data Data Completed and Pending Labs on day of discharge: Labs from last 24 hours 11/13/20 11/13/20 05:19 05:19 WBC 6.1 RBC 3.47 L Hgb 10.2 L Hct 30.6 L MCV 88.2 MCH 29.4 MCHC 33.3 RDW 13.2 Plt Count 271 MPV 9.3 Sodium 142 Potassium 3.8 Chloride 105 Carbon Dioxide 28 Anion Gap 9 BUN 13 Creatinine 0.89 Estim Creat Clear Calc 60 Estimated GFR > 60 Glucose 106 H Calculated Osmolality 294 Calcium 8.5 Preliminary micro results at discharge 11/09/20 14:45 Blood Culture - Preliminary Blood 11/09/20 14:53 Blood Culture - Preliminary Blood Discharge Plan Discharge Attending physician on discharge: Melquiades Mann Discharging Clinician: Ignacio Fay Anticipated Discharge Date/Time: 11/13/20 14:00 Patient Disposition: Home, Self-Care Activity: as tolerated Diet: regular Discharge Instructions: Follow up with your provider within a week A book with Urology providers was given to you at
--- NOTE | 2020-11-13 15:10 | PC.NURSE ---
Pt discharged with all belongings returned. Discharge instructions given to pt. Pt verbalized understanding.
--- NOTE | 2020-11-14 10:49 | PC.NURSE ---
Pt states she received and understood her discharge instructions. Pt also states It was very good care .
--- NOTE | 2020-11-14 13:04 | PM.EVENT ---
Event Note Event Note Event Note: Called to patient she will be able to get her ertapenem filled tomorrow. Bacteria is sensitive to Augmentin patient has a reaction to Augmentin. she notes that it causes GI upsset she gets cramping and diarrhea. Patient is aware that she will miss a day. Patient was able to get the ABX at a discounted rate with good Rx. Case coordination is checking to see if it would be possible for patient to come in as outpatient and give 1 dose of antibiotic until she can get her prescription filled tomorrow.
--- NOTE | 2020-11-14 14:05 | PM.EVENT ---
Event Note Event Note Event Note: Call patient left a message informed her that she can come in and get her daily dose of antibiotics here at our hospital. She will call the nursing station either way whether she decides to come get 1 or not.
== END 2020-11-13 16:25 | disposition home or self-care (01) | DRG 463 ==
LOC: CHSED 15:59 → CHS2ND 16:17
PROVIDERS: Nurse Practitioner Family; Admitting Provider Emergency Medicine; Emergency Provider Emergency Medicine; PCP Physician Assistant; Visit Provider Emergency Medicine
DX: N12 Tubulo-interstitial nephritis, not specified as acute or chronic (principal); B96.20 Unspecified Escherichia coli [E. coli] as the cause of diseases classified elsewhere; Z16.12 Extended spectrum beta lactamase (ESBL) resistance; R11.2 Nausea with vomiting, unspecified; M54.16 Radiculopathy, lumbar region; Z87.891 Personal history of nicotine dependence
CPT/HCPCS: 36415; 74176; 80048; 80053; 81001; 85025; 85027; 87040; 87205; 96361; 96365; 96375; 96376; 99285; A9270; G0378; G0379; J0696; J0743; J0780; J2405; J2765; J7030

== ENCOUNTER 2020-11-14 18:01 | Outpatient (CLI) | payer OTHER, SELFPAY ==
--- NOTE | 2020-11-14 18:25 | PC.NURSE ---
Patient up to floor for Eripenim Injection. IM Eripenim given in right buttocks. Patient tolerated well. Patient offered no c/o and amb without difficulty to elevator.
[2020-11-14] MEDS: ERTAPENEM SODIUM 1 GM VIAL IM (18:28)
== END 2020-11-14 18:02 | disposition home or self-care (01) ==
LOC: CHSTREATRM 18:03
PROVIDERS: PCP Physician Assistant; Visit Provider Emergency Medicine
DX: N12 Tubulo-interstitial nephritis, not specified as acute or chronic (principal); B96.29 Other Escherichia coli [E. coli] as the cause of diseases classified elsewhere; Z16.12 Extended spectrum beta lactamase (ESBL) resistance
CPT/HCPCS: 96372; J1335

== ENCOUNTER 2020-12-15 17:47 | Emergency (ER) | payer OTHER, SELFPAY ==
--- NOTE | ~2020-12-15 | XR_ITS ---
EXAMINATION: XR chest 2V DATE: 12/15/2020 18:44 INDICATION: Cough and fever TECHNIQUE: PA and lateral views of the chest were obtained. COMPARISON: Chest radiograph dated 06/19/2018 FINDINGS: Chronic biapical pleural-parenchymal scarring. Minimal streaky lingular atelectasis/scarring at the c ostophrenic angle. No pulmonary edema, pleural effusion or pneumothorax. The cardiomediastinal silhou ette is normal. Mild thoracic spondylosis. IMPRESSION: 1. Chronic biapical pleural-parenchymal scarring and minimal lingular atelectasis/scarring. No other acute cardiopulmonary disease. Reviewed, dictated and finalized at location A. IMPRESSION: 1. Chronic biapical pleural-parenchymal scarring and minimal lingular atelectas is/scarring. No other acute cardiopulmonary disease.
[2020-12-15 17:50] VITALS: BP 129/75; PULSE 96; RESP 16; TEMP 37.2; O2SAT 95
[2020-12-15] MEDS: ONDANSETRON HCL ODT 4 MG TABLET PO ×2 (18:30→20:10)
--- NOTE | 2020-12-15 18:36 | ED.URI ---
HPI - URI/Sore Throat General Chief Complaint: Upper Respiratory Infection Stated Complaint: sore throat,congestion,vomiting Source: patient Mode of arrival: ambulatory Limitations: no limitations History of Present Illness HPI Narrative: Patient comes in with sore throat, cough, and subjective fever from home. She has had nausea, and emesis x 3 at home, and comes in now because of the nausea, which she rates as moderately severe and ongoing. This nausea has not been relieved by measures taken at home. She has had no obvious source of nausea, such as a bladder infection. She has been vaccinated for Covid x2. MD elicited complaint: cough and sore throat Onset (ago): hour(s) Consistency: intermittent Severity: moderate Relieving factors: nothing Associated symptoms: denies other symptoms Related Data Allergies Allergy/AdvReac Type Severity Reaction Status Date / Time aspirin Allergy Mild Vomiting Verified 10/08/20 12:50 codeine Allergy Unknown Hives Verified 10/08/20 12:50 amoxicillin [From Augmentin] Allergy Unknown Verified 11/09/20 16:18 clavulanic acid Allergy Unknown Verified 11/09/20 16:18 [From Augmentin] Review of Systems Constitutional: Constitutional: Reports chills, Reports fatigue and Reports fever(s) Eyes: Eyes: Reports no additional eye complaints ENT: Reports system reviewed and no additional complaints, except as documented Cardiovascular: Cardiovascular: Reports no additional cardiovascular complaints Respiratory: Respiratory: Reports cough (dry nonproductive ) Gastrointestinal: Gastrointestinal: Reports nausea and Reports vomiting Comments: epigastric discomfort associated with nausea and emesis. Genitourinary: Genitourinary: Reports no additional female genitourinary complaints Musculoskeletal: Musculoskeletal: Reports no additional musculoskeletal complaints Integumentary/Breasts: Skin/Breast: Reports system reviewed and no additional complaints, except as docu Neurologic: Reports system reviewed and no additional complaints, except as documented Psychiatric: Psychiatric: Reports no additional psychiatric complaints Endocrine: Endocrine: Reports no additional endocrine complaints Hematologic/Lymphatic: Hematologic/Lymphatic: Reports no additional hematologic/lymphatic complaints Allergic/Immunologic: Allergic/Immunologic: Reports no additional allergic/immunologic complaints [facility] Past Medical History Medical History (Updated 12/15/20 @ 20:20 by Sheldon Larsen MD) Closed fracture of left tibial plateau Closed nondisp fx of lateral condyle of left tibia w/delayed healing Lumbar radiculopathy, acute Patient denies medical problems Surgical History Surgical History (Updated 12/15/20 @ 18:47 by Sheldon Larsen MD) H/O: hysterectomy Family History Family History Other Diabetes mellitus Family history of arthritis Family history of cardiovascular disease Family history of malignant neoplasm Hypertension Social History Social History Years smoked: 5 Smoking status: Former smoker Tobacco type: cigarettes Alcohol intake: never Substance use: never Gender identity (if verbalized by the patient): Female Spiritual care concerns: No Exam Const: General: no acute distress and alert Orientation/consciousness: patient oriented x3 HENMT: Head: normal to inspection Ears: TM's normal bilaterally General nose exam: Normal external nose present Face and sinus: normal facial exam Other: posterior pharynx with erythema, no exudates Eyes: Conjunctivae: conjunctivae normal Neck: Neck: normal visual inspection Chest: Chest palpation & inspection: normal inspection of the chest Resp: Effort & Inspection: normal respiratory effort Auscultation: clear to auscultation bilaterally Cardio: Rate: regular rate Rhythm: regular rhythm GI: GI Palp: Yes Soft t
[2020-12-15 18:51] LABS: Hematocrit 38.9 % (35.0-49.0); Hemoglobin 12.9 g/dL (12.0-15.0); Mean Corpuscular HGB Conc 33.2 g/dL (32.0-36.0); Mean Corpuscular Hemoglobin 29.4 pg (27.0-31.0); Mean Corpuscular Volume 88.6 fL (78.0-102.0); Mean Platelet Volume 9.3 fl (9.2-11.8); Platelet Count Result 204 K/mm3 (150-420); Red Blood Count 4.39 M/mm3 (4.20-5.40); Red Cell Distribution Width 14.6 % (11.6-14.4); White Blood Count 18.5 K/mm3 (4.8-10.8)
[2020-12-15 18:59] LABS: Add Urine Microscopic? YES; Appearance Urine Clear (Clear); Bilirubin Urine Negative (Negative); Blood Urine 2+ (Negative); Color Urine Yellow (Yellow); Glucose Urine UA Negative (Negative); Ketones Urine Negative (Negative); Leukocyte Esterase Ur Negative LEU/UL (Negative); Nitrate Urine Positive (Negative); Protein Urine 1+ (Negative); Specific Grav Ur 1.025 (1.010-1.020); Urobilinogen Urine 0.2 mg/dL (0.2-1.0)
[2020-12-15 19:06] LABS: Alanine Aminotransferase 36 U/L (14-59); Alkaline Phosphatase 113 U/L (46-116); Anion Gap 12 mmol/L (8-16); Aspartate Amino Transferase 24 U/L (15-37); Bilirubin,Total 0.7 mg/dL (0.00-1.00); Blood Urea Nitrogen 13 mg/dL (7-18); Calcium 8.9 mg/dL (8.5-10.1); Carbon Dioxide 25 mmol/L (21-32); Chloride 99 mmol/L (98-108); Estimated CRCL calculation 47 ml/min; Estimated Glomerular Filt Rate 56; Glucose 127 mg/dL (70-99); Osmolality Calculated 284 mOsm/kg (285-295); Potassium 4.6 mmol/L (3.5-5.1); Sodium 136 mmol/L (136-145); Total Protein 7.5 g/dL (6.4-8.2)
[2020-12-15 19:06] LABS: Bacteria Urine 4+ /hpf; Squamous Epithelial Cell Urine Few /hpf (Few)
[2020-12-15 19:11] LABS: Lactic Acid Reflex 1.8 mmol/L (0.4-2.0)
[2020-12-15 19:17] LABS: Band Neutrophils Percent 1 % (0-6); Lymphocytes Absolute Manual 0.74 K/mm3 (1.1-4.5); Lymphocytes Percent Manual 4 % (18-44); Metamyelocytes Percent 1 %; Monocytes Absolute Manual 0.92 K/mm3 (0.1-0.90); Monocytes Percent Manual 5 % (3-9); Neutrophils Absolute Manual 16.65 K/mm3 (1.7-7.2); Neutrophils Percent Manual 89 % (46-73); Platelet Estimate Adequate (Adequate); Total Cells Counted 100
[2020-12-15] MEDS: cefTRIAXone 1 GM VIAL IM (20:10)
[2020-12-15 20:25] VITALS: BP 128/79; PULSE 99; RESP 16; TEMP 37.2; O2SAT 92
== END 2020-12-15 20:25 | disposition home or self-care (01) ==
PROVIDERS: Emergency Provider Emergency Medicine; PCP Physician Assistant
DX: R11.2 Nausea with vomiting, unspecified (principal); N30.00 Acute cystitis without hematuria
CPT/HCPCS: 36415; 71046; 80053; 81001; 83605; 85025; 87077; 87081; 87086; 87088; 87186; 87880; 96372; 99283; A9270; J0696

== ENCOUNTER 2020-12-16 09:23 | Emergency (ER) | payer OTHER, SELFPAY ==
--- NOTE | ~2020-12-16 | CT_ITS ---
EXAMINATION: CT abdomen pelvis w con INDICATION: Fever and vomiting TECHNIQUE: Computed tomographic images of the abdomen and pelvis were obtained after the administrati on of 100 cc of Omnipaque 350 intravenous contrast. The dose-length product (DLP) was 255.06 mGy-cm. Automated exposure control and iterative reconstruction technique were employed. COMPARISON: 11/09/2020 FINDINGS: There is a 12 mm nodule in the left lower lobe which is new since the comparison examinatio n and most consistent with infection or inflammation given the short interval between examinations. T here is a small sliding hiatal hernia. The liver, spleen, pancreas, gallbladder, and adrenal glands a re normal. The kidneys are unremarkable. There is calcified atherosclerosis of the aorta and many of the other arteries. The appendix is normal. No pathologically enlarged abdominal or pelvic lymph node s are identified. There is no free intraperitoneal gas or evidence of bowel obstruction. A chronic L1 compression fracture is noted. IMPRESSION: 1. No CT correlate for the patient's symptoms. Reviewed, dictated and finalized at location A.
[2020-12-16 09:45] VITALS: BP 133/76; PULSE 79; RESP 14; TEMP 36.3; O2SAT 94
[2020-12-16 10:05] LABS: Basophils Absolute Auto 0.02 K/mm3 (0.00-0.10); Basophils Percent Auto 0.1 % (0.0-1.0); Hematocrit 37.5 % (35.0-49.0); Hemoglobin 12.6 g/dL (12.0-15.0); Immature Granulocyte Percent A 0.6 % (0.0-0.0); Lymphocytes Absolute Auto 1.02 K/mm3 (1.10-4.50); Lymphocytes Percent Auto 6.4 % (18.0-42.0); Mean Corpuscular HGB Conc 33.6 g/dL (32.0-36.0); Mean Corpuscular Hemoglobin 29.6 pg (27.0-31.0); Mean Corpuscular Volume 88.2 fL (78.0-102.0); Mean Platelet Volume 9.2 fl (9.2-11.8); Monocytes Percent Auto 3.8 % (2.0-11.0); Neutrophils Absolute Auto 14.1 K/mm3 (1.7-7.2); Neutrophils Percent Auto 89.1 % (50.0-70.0); Platelet Count Result 207 K/mm3 (150-420); Red Blood Count 4.25 M/mm3 (4.20-5.40); Red Cell Distribution Width 14.3 % (11.6-14.4); White Blood Count 15.9 K/mm3 (4.8-10.8)
[2020-12-16] MEDS: ACETAMINOPHEN 325 MG TABLET 650 MG PO (10:19)
[2020-12-16 10:20] LABS: Alanine Aminotransferase 30 U/L (14-59); Albumin Level 3.8 g/dL (3.4-5.0); Alkaline Phosphatase 106 U/L (46-116); Anion Gap 12 mmol/L (8-16); Aspartate Amino Transferase 19 U/L (15-37); Bilirubin,Total 0.6 mg/dL (0.00-1.00); Blood Urea Nitrogen 12 mg/dL (7-18); Calcium 9.1 mg/dL (8.5-10.1); Carbon Dioxide 27 mmol/L (21-32); Chloride 98 mmol/L (98-108); Estimated Glomerular Filt Rate > 60; Glucose 118 mg/dL (70-99); Osmolality Calculated 284 mOsm/kg (285-295); Potassium 4.3 mmol/L (3.5-5.1); Sodium 137 mmol/L (136-145); Total Protein 7.4 g/dL (6.4-8.2)
[2020-12-16] MEDS: ONDANSETRON INJ 4 MG/2 ML VIAL IV PUSH (10:20)
[2020-12-16] MEDS: PANTOPRAZOLE SODIUM IV 40 MG VIAL IV PUSH (10:20)
[2020-12-16] MEDS: SODIUM CHLORIDE 0.9% IV 1,000 ML 999 ML IV CONT (10:20)
--- NOTE | 2020-12-16 10:32 | ED.NAVMDI ---
HPI - Nausea/Vomiting/Diarrhea General Chief complaint: Nausea/Vomiting/Diarrhea Stated complaint: vomitting, headache, nausea, chest congestion Time Seen by Provider: 12/16/20 09:33 Source: patient and family Mode of arrival: ambulatory Limitations: no limitations History of Present Illness HPI Narrative: Pt was seen in this ED and wanted to go home. the vomiting has continued and she has not been able to keep her meds down. MD elicited complaint: nausea, vomiting and abdominal pain Onset (ago): day(s) (2) Associated nausea: Yes Associated abdominal pain: Yes Location of pain: epigastric Radiation: periumbilical Pain consistency: colicky Severity: moderate Pain scale (0-10): 4 Quality: cramping and dull Exacerbating factors: none Relieving factors: none Context: other (UTI treatment started 1 day ago.) Associated symptoms: nausea/vomiting Related Data Allergies Allergy/AdvReac Type Severity Reaction Status Date / Time aspirin Allergy Mild Vomiting Verified 10/08/20 12:50 codeine Allergy Unknown Hives Verified 10/08/20 12:50 amoxicillin [From Augmentin] Allergy Unknown Verified 11/09/20 16:18 clavulanic acid Allergy Unknown Verified 11/09/20 16:18 [From Augmentin] Review of Systems Review of Systems: All systems reviewed & are unremarkable except as noted in HPI and below Constitutional: Constitutional: Reports no additional constitutional complaints Eyes: Eyes: Reports no additional eye complaints ENT: Reports system reviewed and no additional complaints, except as documented Cardiovascular: Cardiovascular: Reports no additional cardiovascular complaints Respiratory: Respiratory: Reports no additional respiratory complaints Gastrointestinal: Gastrointestinal: Reports abdominal pain, Reports nausea and Reports vomiting Genitourinary: Genitourinary: Reports no additional female genitourinary complaints and Reports dysuria Musculoskeletal: Musculoskeletal: Reports no additional musculoskeletal complaints Integumentary/Breasts: Skin/Breast: Reports system reviewed and no additional complaints, except as docu Neurologic: Reports system reviewed and no additional complaints, except as documented Psychiatric: Psychiatric: Reports no additional psychiatric complaints Endocrine: Endocrine: Reports no additional endocrine complaints Hematologic/Lymphatic: Hematologic/Lymphatic: Reports no additional hematologic/lymphatic complaints Allergic/Immunologic: Allergic/Immunologic: Reports no additional allergic/immunologic complaints PMFSH Past Medical History Medical History Closed fracture of left tibial plateau Closed nondisp fx of lateral condyle of left tibia w/delayed healing Lumbar radiculopathy, acute Patient denies medical problems Surgical History Surgical History H/O: hysterectomy Family History Family History Other Diabetes mellitus Family history of arthritis Family history of cardiovascular disease Family history of malignant neoplasm Hypertension Social History Social History Years smoked: 5 Smoking status: Former smoker Tobacco type: cigarettes Alcohol intake: never Substance use: never Gender identity (if verbalized by the patient): Female Spiritual care concerns: No Exam Const: General: no acute distress and alert Orientation/consciousness: patient oriented x3 HENMT: Head: normal to inspection Ears: external ears normal and TM's normal bilaterally General nose exam: Normal external nose present Face and sinus: normal facial exam Mouth: Yes lip normal Teeth and gingiva: dentition normal Eyes: Cornea: corneas normal Pupils: Equal, round and reactive pupils present EOM: EOMs intact bilaterally Neck: Neck: normal visual inspection Oth
[2020-12-16 10:34] LABS: Lipase 49 U/L (73-393)
[2020-12-16] MEDS: PROMETHAZINE HCL 25 MG/ML AMPUL IM (11:33)
[2020-12-16 11:34] LABS: Add Urine Microscopic? YES; Appearance Urine Clear (Clear); Bilirubin Urine Negative (Negative); Blood Urine 1+ (Negative); Color Urine Light Yellow (Yellow); Glucose Urine UA Negative (Negative); Ketones Urine Negative (Negative); Leukocyte Esterase Ur Trace (Negative); Nitrate Urine Negative (Negative); Protein Urine Negative (Negative); Specific Grav Ur <= 1.005 (1.010-1.020); Urobilinogen Urine 0.2 mg/dL (0.2-1.0)
[2020-12-16 11:39] LABS: Bacteria Urine None seen /hpf; RBC Urine 0-2 /hpf (0-2); Squamous Epithelial Cell Urine Rare /hpf (Few); WBC Urine 0-3 /hpf (0-3)
[2020-12-16 12:12] VITALS: BP 140/71; PULSE 72; RESP 14; O2SAT 94
== END 2020-12-16 12:18 | disposition home or self-care (01) ==
PROVIDERS: Emergency Provider Emergency Medicine; PCP Physician Assistant
DX: K52.9 Noninfective gastroenteritis and colitis, unspecified (principal); N30.00 Acute cystitis without hematuria
CPT/HCPCS: 36415; 74177; 80053; 81001; 83690; 85025; 96365; 96372; 96375; 99283; 99284; A9270; C9113; J0696; J2405; J2550; J7030; Q9967

== ENCOUNTER 2020-12-17 10:50 | Emergency (ER) | payer OTHER, SELFPAY ==
--- NOTE | ~2020-12-17 | XR_ITS ---
EXAMINATION: XR chest 1V portable INDICATION: Shortness of breath TECHNIQUE: Portable AP chest at 1122 hours COMPARISON: 12/15/2020 FINDINGS: The lungs are hyperinflated but free of acute opacities. There is no pleural effusion or pn eumothorax. Scarring is noted in the lung apices. The cardiomediastinal silhouette is normal. IMPRESSION: 1. No acute cardiopulmonary abnormality. Reviewed, dictated and finalized at location A.
[2020-12-17 10:50] VITALS: BP 131/94; PULSE 160; PULSE 164; RESP 24; O2SAT 94
--- NOTE | 2020-12-17 10:54 | ECG_ITS ---
Rate 154 MT 0 QRSd 81 QT 250 QTc 401 --[place]-- P QRS 72 T 29 ATRIAL FIBRILLATION WITH RAPID VENTRICULAR RESPONSE VENTRICULAR PREMATURE COMPLEX BASELINE ARTIFACT- I, II, AVR, AVL, AVF, V1-V2, V4-V6 ABNORMAL ECG Electronically Signed On 12-17-2020 20:46:35 CDT by Mark Snider D.O. NO PREVIOUS ECG AVAILABLE FOR COMPARISON [facility]
[2020-12-17 11:00] VITALS: BP 144/90; PULSE 163; O2SAT 100
[2020-12-17] MEDS: dilTIAZem HCl INJ 25 MG/5 ML VIAL 10 MG IV PUSH (11:00)
[2020-12-17 11:01] VITALS: TEMP 36.9
--- NOTE | 2020-12-17 11:01 | ED.SOB ---
HPI - SOB/Dyspnea General Chief Complaint: Arrhythmia/Palpitations Stated Complaint: ambulance Time Seen by Provider: 12/17/20 11:02 Source: patient Mode of arrival: ambulatory Limitations: no limitations History of Present Illness HPI Narrative: Patient comes in with shortness of breath, moderately severe to severe, ongoing, made worse with activity, and improves with rest. Shortness of breath, which started about 5am, has been ongoing since then. She had some mild left chest pressure at that time which lasted a few minutes and then resolved spontaneously. Nothing including rest has stopped the shortness of breath, although it is less with rest. She recently was seen in the ER for a urinary track infection, given rocephin one gram in ER, and sent home with a script for levofloxicin 500 mg daily. Gram stain showed gram negative rods at that point. Culture has been pending. MD elicited complaint: shortness of breath Onset (ago): hour(s) Context: recent illness Severity: moderate Exacerbating factors: lying flat Relieving factors: rest Associated symptoms: denies other symptoms and chest pain (minimal chest pressure this am about 5 am which spontaneously resolved. ) Related Data Allergies Allergy/AdvReac Type Severity Reaction Status Date / Time aspirin Allergy Mild Vomiting Verified 10/08/20 12:50 codeine Allergy Unknown Hives Verified 10/08/20 12:50 amoxicillin [From Augmentin] Allergy Unknown Verified 11/09/20 16:18 clavulanic acid Allergy Unknown Verified 11/09/20 16:18 [From Augmentin] Review of Systems Constitutional: Constitutional: Reports no additional constitutional complaints Eyes: Eyes: Reports no additional eye complaints ENT: Reports system reviewed and no additional complaints, except as documented Cardiovascular: Cardiovascular: Reports no additional cardiovascular complaints Respiratory: Respiratory: Reports no additional respiratory complaints Gastrointestinal: Gastrointestinal: Reports no additional gastrointestinal complaints Genitourinary: Genitourinary: Reports no additional female genitourinary complaints Musculoskeletal: Musculoskeletal: Reports no additional musculoskeletal complaints Integumentary/Breasts: Skin/Breast: Reports system reviewed and no additional complaints, except as docu Neurologic: Reports system reviewed and no additional complaints, except as documented Psychiatric: Psychiatric: Reports no additional psychiatric complaints Endocrine: Endocrine: Reports no additional endocrine complaints Hematologic/Lymphatic: Hematologic/Lymphatic: Reports no additional hematologic/lymphatic complaints Allergic/Immunologic: Allergic/Immunologic: Reports no additional allergic/immunologic complaints PMFSH Past Medical History Medical History Closed fracture of left tibial plateau Closed nondisp fx of lateral condyle of left tibia w/delayed healing Lumbar radiculopathy, acute Patient denies medical problems Surgical History Surgical History H/O: hysterectomy Family History Family History Other Diabetes mellitus Family history of arthritis Family history of cardiovascular disease Family history of malignant neoplasm Hypertension Social History Social History Years smoked: 5 Smoking status: Former smoker Tobacco type: cigarettes Alcohol intake: never Substance use: never Gender identity (if verbalized by the patient): Female Spiritual care concerns: No Exam Const: General: alert Orientation/consciousness: patient oriented x3 HENMT: Head: normal to inspection Ears: external ears normal Mouth: Yes Normal oral and palatal mucosa present Throat: posterior oropharynx normal Eyes: Conjunctivae: conjunctivae normal Neck: Neck: normal visua
[2020-12-17 11:10] LABS: Basophils Absolute Auto 0.03 K/mm3 (0.00-0.10); Basophils Percent Auto 0.2 % (0.0-1.0); Eosinophils Absolute Auto 0.03 K/mm3 (0.02-0.50); Eosinophils Percent Auto 0.2 % (1.0-6.0); Hematocrit 39.9 % (35.0-49.0); Hemoglobin 13.4 g/dL (12.0-15.0); Immature Granulocyte Absolute 0.06 K/mm3 (0.00-0.00); Immature Granulocyte Percent A 0.4 % (0.0-0.0); Lymphocytes Absolute Auto 1.51 K/mm3 (1.10-4.50); Mean Corpuscular HGB Conc 33.6 g/dL (32.0-36.0); Mean Corpuscular Hemoglobin 29.5 pg (27.0-31.0); Mean Corpuscular Volume 87.9 fL (78.0-102.0); Mean Platelet Volume 9.1 fl (9.2-11.8); Monocytes Absolute Auto 0.78 K/mm3 (0.10-0.90); Monocytes Percent Auto 5.1 % (2.0-11.0); Neutrophils Absolute Auto 12.8 K/mm3 (1.7-7.2); Neutrophils Percent Auto 84.1 % (50.0-70.0); Platelet Count Result 230 K/mm3 (150-420); Red Blood Count 4.54 M/mm3 (4.20-5.40); Red Cell Distribution Width 14.4 % (11.6-14.4); White Blood Count 15.2 K/mm3 (4.8-10.8)
--- NOTE | 2020-12-17 11:15 | ECG_ITS ---
Rate 124 [place] 0 QRSd 86 QT 291 QTc 419 --[place]-- P QRS 67 T 48 ATRIAL FIBRILLATION WITH RAPID VENTRICULAR RESPONSE VENTRICULAR PREMATURE COMPLEX DELAYED PRECORDIAL R/S TRANSITION BASELINE ARTIFACT- II, III, AVR, AVL, AVF, V1, V4 ABNORMAL ECG Electronically Signed On 12-17-2020 20:47:38 CDT by Mark Snider D.O. COMPARED TO ECG 12/17/2020 10:54:58 NO SIGNIFICANT CHANGES MTDD
[2020-12-17 11:18] VITALS: PULSE 147
[2020-12-17] MEDS: METOPROLOL TARTRATE INJ 5 MG/5 ML VIAL IV PUSH (11:18)
[2020-12-17 11:29] LABS: Lactic Acid Reflex 2.3 mmol/L (0.4-2.0)
[2020-12-17 11:33] LABS: Alanine Aminotransferase 27 U/L (14-59); Albumin Level 3.6 g/dL (3.4-5.0); Alkaline Phosphatase 99 U/L (46-116); Anion Gap 14 mmol/L (8-16); Aspartate Amino Transferase 19 U/L (15-37); Bilirubin,Total 0.6 mg/dL (0.00-1.00); Blood Urea Nitrogen 13 mg/dL (7-18); Carbon Dioxide 24 mmol/L (21-32); Chloride 102 mmol/L (98-108); Estimated Glomerular Filt Rate 56; Glucose 98 mg/dL (70-99); Magnesium 2.1 mg/dL (1.8-2.4); NT Pro B Type Natriuretic Pept 401 pg/mL (0-125); Osmolality Calculated 290 mOsm/kg (285-295); Potassium 4.1 mmol/L (3.5-5.1); Sodium 140 mmol/L (136-145); Total Protein 7.4 g/dL (6.4-8.2); Troponin I 4.6 ng/L (0.00-60.4)
[2020-12-17 11:44] LABS: Add Urine Microscopic? YES; Appearance Urine Clear (Clear); Bilirubin Urine Negative (Negative); Blood Urine 1+ (Negative); Color Urine Light Yellow (Yellow); Glucose Urine UA Negative (Negative); Ketones Urine Trace (Negative); Leukocyte Esterase Ur 1+ LEU/UL (Negative); Nitrate Urine Negative (Negative); Protein Urine Negative (Negative); Urobilinogen Urine 0.2 mg/dL (0.2-1.0)
[2020-12-17 11:51] LABS: Bacteria Urine None seen /hpf; Squamous Epithelial Cell Urine Occasional /hpf (Few)
[2020-12-17] MEDS: SODIUM CHLORIDE 0.9% IV 1,000 ML 150 ML IV CONT (12:32)
--- NOTE | 2020-12-17 13:11 | PC.NURSE ---
[id number]. awaiting call back.
--- NOTE | 2020-12-17 13:50 | PC.NURSE ---
[id number] ana merida np call back to dr. delvalle. accepting physician dr. sood. COTY MAYNARDKELP OR [facility] CALL BACK AT [phone], ROOM 202 PROVIDED.
--- NOTE | 2020-12-17 14:01 | PC.NURSE ---
TELEPHONE REPORT PROVIDED TO XAVIER BECERRA AT [facility] AT [id number]
--- NOTE | 2020-12-17 14:03 | PC.NURSE ---
[facility] PAGED FOR TRANSFER. NO ALS TRANSFER AVAILABLE. [facility] PAGED FOR ALS TRANSFER, DISPATCH STATES THERE IS A LONG WAIT FOR TRANSFERS AT THIS TIME
[2020-12-17 14:09] LABS: Reflex Lactic Acid Yes or No Add Lactic
[2020-12-17 15:26] VITALS: BP 117/81; PULSE 86; RESP 23; TEMP 36.6; O2SAT 99
== END 2020-12-17 15:29 | disposition short-term general hospital (02) ==
PROVIDERS: Emergency Provider Emergency Medicine; PCP Physician Assistant
DX: I48.0 Paroxysmal atrial fibrillation (principal)
CPT/HCPCS: 36415; 71045; 80053; 81001; 83605; 83735; 83880; 84484; 85025; 87086; 87088; 93005; 96365; 96366; 96375; 99285; J7030

== ENCOUNTER 2020-12-17 16:06 | Observation (INO) | payer OTHER, SELFPAY ==
[2020-12-17] VITALS (10 sets, daily range): BP systolic 90–118; BP diastolic 49–70; PULSE 70–91; RESP 18–20; TEMP 36.6–37.2; O2SAT 98–100; BMI 21.8
--- NOTE | 2020-12-17 16:31 | ADMGEN ---
This patient, Surekha Fisher, was admitted to IMU Room 202-01. Patient/family oriented to hospital policies and general routines including ID bracelet, bed and alarms, visiting hours, pain management, procedures, bathroom and other care routines, personal items, smoking policy, room service/diet, and visiting hours. Information on how to activate the Rapid Response Team has been discussed. Patient/Family are encouraged to report perceived risks to care and to ask questions if they do not understand what they are told or what they should do.
--- NOTE | 2020-12-17 18:09 | PM.IMHP ---
H&P: HPI History of Present Illness Date/Time: 12/17/20 18:09Janina is a 60-year-old female patient who went to the emergency room on 12/15/2020 at [facility]. She went to [facility] sore throat cough and subjective fever from home. She was vomiting that day. The patient was started on Levaquin and Zofran and sent home that day. The patient went back to [facility] the next day because she was not able to keep down any of her medications. Her medications were switched to promethazine and omeprazole on that day. Today the patient came to the emergency room with complaints of shortness of breath. Moderately to severe. The patient has been coughing as well. The patient has been fully vaccinated for COVID-19. The patient woke up at 5:00 a.m. this morning and had been short of breath and coughing. She had some mild chest pressure that lasted a few minutes and resolved on its own spontaneously. Patient could not rest during the night. The patient recently was started on Levaquin for g stain negative U TI. The patient has no prior history of having atrial fibrillation. The patient stated that she felt her heart racing rapidly this morning and decided to call the ambulance. The patient was found to be AFib with RVR. Her heart rate was noted to be 150s. The patient was started on a Cardizem drip after bolus. She was also given Lopressor IV. It sounds like the patient may have been given adenosine x2 in the ambulance. Chest x-ray was read as no acute cardiopulmonary abnormality. Abdominal pelvis CT was read as no CT correlate for the patient's Symptoms. The patient was transferred to [facility] and admitted to observation status. Is reported to me that cardiology had been consulted prior to her arrival. The patient was admitted to observation IMU on the date of service of 12/17/2020. Chief Complaint: rapid heart rate Review of Systems Review of Systems: All systems reviewed & are unremarkable except as noted in HPI and below Constitutional: Constitutional: Reports as per HPI and Reports no additional constitutional complaints Eyes: Eyes: Reports as per HPI and Reports no additional eye complaints ENT: Reports system reviewed and no additional complaints, except as documented and Reports Normal hearing present Cardiovascular: Cardiovascular: Reports no additional cardiovascular complaints Respiratory: Respiratory: Reports no additional respiratory complaints and Reports no additional respiratory complaints Gastrointestinal: Gastrointestinal: Reports as per HPI and Reports no additional gastrointestinal complaints Musculoskeletal: Musculoskeletal: Reports no additional musculoskeletal complaints Integumentary/Breasts: Skin/Breast: Reports system reviewed and no additional complaints, except as docu and Reports as per HPI Neurologic: Reports system reviewed and no additional complaints, except as documented, Reports as per HPI and Reports Normal hearing present Psychiatric: Psychiatric: Reports no additional psychiatric complaints and Reports as per HPI Endocrine: Endocrine: Reports no additional endocrine complaints Hematologic/Lymphatic: Hematologic/Lymphatic: Reports no additional hematologic/lymphatic complaints Allergic/Immunologic: Allergic/Immunologic: Reports no additional allergic/immunologic complaints PMF Past Medical History Medical History (Updated 12/17/20 @ 18:25 by Keysha Crawford NP) Closed fracture of left tibial plateau Closed nondisp fx of lateral condyle of left tibia w/delayed healing Lumbar radiculopathy, acute Surgical History Surgical History (Updated 12/17/20 @ 18:23 by Keysha Crawford NP) H/O: hysterectomy History of appendectomy History of section, classical x2 Family History Family History Mother Diabetes mellitus Family history of cardiovascular disease Mother Family history of arthritis Othe
--- NOTE | 2020-12-17 19:29 | ECG_ITS ---
Measurements Intervals [place] Rate: 124 P: [place]: 0 QRS: 67 QRSD: 86 T: 48 QT: 291 QTc: 419 Interpretive Statements ATRIAL FIBRILLATION WITH RAPID VENTRICULAR RESPONSE VENTRICULAR PREMATURE COMPLEX DELAYED PRECORDIAL R/S TRANSITION BASELINE ARTIFACT- II, III, AVR, AVL, AVF, V1, V4 ABNORMAL ECG Electronically Signed On 12-17-2020 20:47:38 CDT by Mark Snider D.O.
--- NOTE | 2020-12-17 19:30 | ECG_ITS ---
Measurements Intervals [place] Rate: 154 P: [place]: 0 QRS: 72 QRSD: 81 T: 29 QT: 250 QTc: 401 Interpretive Statements ATRIAL FIBRILLATION WITH RAPID VENTRICULAR RESPONSE VENTRICULAR PREMATURE COMPLEX BASELINE ARTIFACT- I, II, AVR, AVL, AVF, V1-V2, V4-V6 ABNORMAL ECG Electronically Signed On 12-17-2020 20:46:35 CDT by Mark Snider D.O.
[2020-12-17 20:12] LABS: Anion Gap 9 mmol/L (8-16); Blood Urea Nitrogen 11 mg/dL (7-17); Carbon Dioxide 25 mmol/L (22-30); Chloride 104 mmol/L (98-107); Estimated CRCL calculation 72 ml/min; Estimated Glomerular Filt Rate > 60; Glucose 119 mg/dL (65-110); Magnesium 2.1 mg/dL (1.6-2.3); Potassium 3.9 mmol/L (3.4-5.0); Sodium 138 mmol/L (137-145)
[2020-12-17 20:23] LABS: Troponin I < 0.012 ng/mL (0.000-0.034)
[2020-12-17] MEDS: IPRATROPIUM BR 0.02% INH SOLN 0.5 MG/2.5 ML VIAL INHALATION (20:51)
[2020-12-17] MEDS: FAMOTIDINE 20 MG/2 ML VIAL IV PUSH (21:01)
[2020-12-17 21:33] LABS: Mean Platelet Volume 9.1 fl (7.4-10.4); Platelet Count Result 200 k/mm3 (150-375)
[2020-12-17 21:55] LABS: Troponin I < 0.012 ng/mL (0.000-0.034)
[2020-12-17] MEDS: ENOXAPARIN 80 MG/0.8 ML SYRINGE 64 MG SUB-Q (23:26)
[2020-12-18] VITALS (19 sets, daily range): BP systolic 91–107; BP diastolic 53–65; PULSE 57–88; RESP 16–20; TEMP 36.4–36.8; O2SAT 92–100
--- NOTE | 2020-12-18 | ECHO_ITS ---
Patient Info Name: Surekha Fisher Age: 60 years : 1960 Gender: Female Ht: 68 in Wt: 143 lbs BSA: 1.76 m2 HR: 59 bpm BP: 91 / 55 mmHg Heart Rhythm: Sinus Rhythm Technical Quality: Good Exam Date: 12/18/2020 10:26 AM Exam Location: [facility] Patient Status: Outpatient Admit Date: 12/17/2020 Staff Ordering Physician: Keysha Crawford NP Senior Group Manager: Darian Vega RDCS, RT Attending Provider: Dalton August MD Referring Physician: Ty SCHUMACHER; Exam Type: CA echo doppler color flow Study Info Indications I48.0 - Paroxysmal atrial fibrillation Complete two-dimensional, color flow and Doppler transthoracic echocardiogram is performed. Strain analysis performed. Summary 1. Complete two-dimensional, color flow and Doppler transthoracic echocardiogram is performed. 2. Left ventricular chamber dimension is normal. 3. Left ventricular systolic function is normal, estimated at 60-65%. 4. There is no increased left ventricular wall thickness. 5. The left ventricular diastolic function is abnormal. 6. There is trace tricuspid valve regurgitation. 7. Unable to estimate PA systolic pressure due to poor spectral resolution of tricuspid regurgitant jet velocity. 8. There is a small pericardial effusion. Left Ventricle Left ventricular chamber dimension is normal. Left ventricular systolic function is normal, estimated at 60-65%. There is no increased left ventricular wall thickness. The left ventricular diastolic function is abnormal. Global longitudinal strain is normal at -19 %. Right Ventricle Right ventricular chamber dimension is normal. Right ventricular systolic function is normal. Left Atria Left atrial chamber dimension is normal. Right Atria Right atrial chamber dimension is normal. Aortic Valve The aortic valve is probable trileaflet. There is no aortic valve stenosis. There is no aortic valve regurgitation. Pulmonic Valve The pulmonic valve is not well visualized. There is trace pulmonic regurgitation. Mitral Valve The mitral valve has normal leaflets. There is no mitral valve regurgitation. Tricuspid Valve The tricuspid valve leaflets are normal. There is trace tricuspid valve regurgitation. Unable to estimate PA systolic pressure due to poor spectral resolution of tricuspid regurgitant jet velocity. Pericardium/Pleural The pericardium appears normal. There is a small pericardial effusion. Inferior Vena Cava Normal inferior vena cava with >50% collapse upon inspiration consistent with normal right atrial pressure, 5 mmHg. Aorta The aortic root size at the sinus of Valsalva is normal. Left Ventricular Outflow Tract Name Value Normal LVOT 2D LVOT Diameter 2.0 cm LVOT Doppler LVOT Peak Gradient 6 mmHg LVOT Mean Gradient 3 mmHg LVOT VTI 25 cm LVOT VTI/AV VTI Ratio 0.9 LVOT Stroke Volume 77 ml LVOT CO 4.7 l/min LVOT CI
[2020-12-18 01:08] LABS: Troponin I < 0.012 ng/mL (0.000-0.034)
--- NOTE | 2020-12-18 01:52 | ECG_ITS ---
Measurements Intervals [place] Rate: 64 P: 73 [place]: 175 QRS: 64 QRSD: 75 T: 74 QT: 417 QTc: 433 Interpretive Statements SINUS RHYTHM DELAYED PRECORDIAL R/S TRANSITION BASELINE WANDER- V4-V6 BORDERLINE ECG Electronically Signed On 12-18-2020 7:51:13 CDT by Mark Snider D.O.
[2020-12-18] MEDS: IPRATROPIUM BR 0.02% INH SOLN 0.5 MG/2.5 ML VIAL INHALATION ×4 (01:59→20:24)
[2020-12-18 05:50] LABS: Basophils Percent Auto 0.4 % (0.2-1.2); Eosinophils Absolute Auto 0.1 K/mm3 (0-0.3); Eosinophils Percent Auto 1.3 % (0-4.4); Hematocrit 34.3 % (37.0-47.0); Hemoglobin 11.3 g/dL (12.0-15.0); Immature Granulocyte Absolute 0.03 K/mm3 (0.00-0.031); Immature Granulocyte Percent A 0.4 % (0-0.5); Lymphocytes Absolute Auto 2.04 K/mm3 (0.9-3.2); Lymphocytes Percent Auto 26.3 % (18.3-44.2); Mean Corpuscular HGB Conc 32.9 g/dl (32-36); Mean Corpuscular Volume 88.2 fl (80-100); Mean Platelet Volume 9.7 fl (7.4-10.4); Monocytes Absolute Auto 0.5 K/mm3 (0.1-0.6); Monocytes Percent Auto 6.7 % (2.6-8.5); Neutrophils Percent Auto 64.9 % (45.5-73.1); Platelet Count Result 222 k/mm3 (150-375); Red Blood Count 3.89 M/mm3 (4.2-5.4); Red Cell Distribution Width 14.5 % (11.5-14.5); White Blood Count 7.8 K/mm3 (4.5-10.0)
[2020-12-18 06:01] LABS: Anion Gap 9 mmol/L (8-16); Blood Urea Nitrogen 12 mg/dL (7-17); Calcium 8.7 mg/dL (8.4-10.2); Carbon Dioxide 25 mmol/L (22-30); Chloride 103 mmol/L (98-107); Estimated CRCL calculation 64 ml/min; Estimated Glomerular Filt Rate > 60; Glucose 93 mg/dL (65-110); Lactic Acid Reflex 0.8 mmol/L (0.7-2.1); Lipase 102 U/L (23-300); Magnesium 2.2 mg/dL (1.6-2.3); Potassium 3.5 mmol/L (3.4-5.0); Sodium 137 mmol/L (137-145)
[2020-12-18] MEDS: ENOXAPARIN 80 MG/0.8 ML SYRINGE 64 MG SUB-Q ×2 (09:36→21:58)
[2020-12-18] MEDS: FAMOTIDINE 20 MG/2 ML VIAL IV PUSH ×2 (09:36→21:57)
--- NOTE | 2020-12-18 09:54 | PM.CNCAR ---
Assessment and Plan Assessment and plan (1) Atrial fibrillation with rapid ventricular response: Code(s): I48.91 - Unspecified atrial fibrillation Status: Acute Assessment and Plan: New onset, symptomatic atrial fibrillation with rapid ventricular response with shortness of breath, rapid palpitations, fatigue, cough setting of acute illness with UTI. The symptoms resolved with resolution of her atrial fibrillation. She does not appear to be in decompensated heart failure, negative serial troponin and no evidence of myocardial ischemia. Heart rate controlled with diltiazem infusion initially then converted to normal sinus rhythm after 1:00 a.m. this morning. patient denies prior known history of AFib. CHADS2-Vasc score of 1. ASA recommended for CVA risk reduction, however, pt intolerant due to easy bleeding, upset stomach, nausea. Discussed embolic CVA vs bleeding risk with ASA and A/C (Warfarin, Eliquis, Xarelto) although technically pt at lower risk for CVA. Ideally, then A/C would be advised. Discussed likelihood of recurrence of A.Fib in future. May observe for now if maintaining SR, but if recurrence systemic A/C moving forward an option for CVA risk reduction after shared decision making discussions. -Transition to oral AV bryan blocking agents Metoprolol 25mg BID and discontinue Diltiazem gtt. -Telemetry -2D Echo to assess LV function, chamber size, valve pathology and pulmonary pressures. -Underlying infection very likely trigger for A.Fib, however, pt clearly has increased likelihood for recurrent A.Fib in future with CVA risk increasing over time as discussed. -Recommendations to follow based upon tolerance for therapy and control of A.Fib. -Advised to reduce excessive caffeine intake, although not the cause of her A.Fib. -We had discussed options such rate vs rhythm control including cardioversion if symptomatic A.Fib persisted. (2) Urinary tract infection: Qualifiers: Hematuria presence: without hematuria Urinary tract infection type: acute cystitis Qualified Code(s): N30.00 - Acute cystitis without hematuria Code(s): N39.0 - Urinary tract infection, site not specified Status: Acute Assessment and Plan: Likely trigger for atrial fibrillation. Continue workup, treatment per primary service. (3) Nausea & vomiting: Qualifiers: Vomiting Intractability: non-intractable Vomiting type: unspecified Qualified Code(s): R11.2 - Nausea with vomiting, unspecified Code(s): R11.2 - Nausea with vomiting, unspecified Status: Acute Assessment and Plan: Secondary to underlying infection with symptoms exacerbated by new onset symptomatic AFib with RVR. History of Present Illness History of Present Illness Consult date/time: Date of service: 12/18/20 09:54 This is a cardiology consultation at the request of Keysha Crawford APN of the [facility] service for our opinion regarding atrial fibrillation with rapid ventricular response. Requesting physician: Keysha Crawford NP Consult reason: atrial fibrillation Reason For Visit: Sepsis w UTI, Afib w RVR Narrative: Patient is a pleasant 60-year-old female who presented to the emergency department. In hospital 12/15/2020 complaint of fever, cough and sore throat along with nausea vomiting. She was given Levaquin, Zofran and discharged home and treated for UTI. She started on Ertapenem due to Augmentin intolerance as an outpatient recently. She returned the following day due to nausea vomiting for which she was given alternative anti medics. She then presented back to the ER with worsening shortness of breath upon waking at 5:30 a.m. with rapid palpitations, fatigue, lightheadedness and cough. She noted mild discomfort in her chest pressure like sensation that only lasted a few minutes on one occasion. Due to her new sxs she called EMS. She was found to be in atrial fibrillation with rapid ventricular
[2020-12-18] MEDS: METOPROLOL TARTRATE 25 MG TABLET PO (12:57)
--- NOTE | 2020-12-18 13:23 | PM.IMPN ---
Progress Note: A&P Assessment and Plan (1) Atrial fibrillation: Qualifiers: Atrial fibrillation type: paroxysmal Qualified Code(s): I48.0 - Paroxysmal atrial fibrillation Code(s): I48.91 - Unspecified atrial fibrillation Status: Inactive Assessment and Plan: New onset of atrial fibrillation. Cardiology has been consulted. Cardizem drip turned off at 10 am 12/18/20 Metoprolol 25mg PO Q12hr echo ordered and pending. troponin levelsnegative at 0.12x2 chads Vasc score 1, very low risk for stroke. subcu Lovenox 40mg for DVT prophylaxis. Potassium 3.5, BNP 401 No acute cardiopulmonary abnormality tele monitor will transfer patient to [place] with tele (2) Urinary tract infection: Qualifiers: Hematuria presence: without hematuria Urinary tract infection type: acute cystitis Qualified Code(s): N30.00 - Acute cystitis without hematuria Code(s): N39.0 - Urinary tract infection, site not specified Status: Acute Assessment and Plan: patient did have frequency, urgency, and signs of UTI urine culture from 12/15/2020 shows E coli growth. Rocephin 1gm Q24hr was started, but the culture from the shows resistance Levaquin as outpatient also shows resistance Start on Cefepime 1gm Q12hr IV repeat UA with reflux and culture ordered and pending Mariaelena antibiotics with culture results (3) Nausea & vomiting: Qualifiers: Vomiting Intractability: non-intractable Vomiting type: unspecified Qualified Code(s): R11.2 - Nausea with vomiting, unspecified Code(s): R11.2 - Nausea with vomiting, unspecified Status: Acute Assessment and Plan: Continue with Zofran and omeprazole Subjective Date/time seen: 12/18/20 13:15 Interval history: This is a 60-year-old female with past medical history of hysterectomy appendectomy and fractures who came to the ER with complaints of shortness of breath In new cough. Patient stated that she has had the cough for about a week which she was told she probably has little bronchitis. She also stated that she was short of breath but that has subsided since she is back in sinus rhythm. She has not really had any chest pain however she did say that she had some bilateral ear pain. Patient also asked about the plan of care. I told her that since she is in sinus rhythm show going to oral medications to help her keep in sinus rhythm and that she will probably need to follow-up in 4-6 weeks with Cardiology upon discharge. However I did explain to her that she probably will have to be monitored for another night or so to make sure that she does not go back into an AFib. Patient agreed and understood all questions were answered. Patient denies chest pain, shortness of breath, nausea vomiting, diarrhea constipation, numbness and tingling, sweats, chills or fevers. Review of Systems Review of Systems: All systems reviewed & are unremarkable except as noted in HPI and below Exam Const: General: cooperative, healthy appearing, comfortable, no acute distress, well developed, alert, awake and Physically active Nutritional Appearance: average body habitus and well nourished Orientation/consciousness: oriented to person, oriented to place, oriented to time and patient oriented x3 Limitations: no limitations HENMT: Head: normal to inspection, No palpable skull fracture present, normocephalic and atraumatic Ears: hearing grossly normal bilaterally and external ears normal General nose exam: Normal external nose present and Normal nares present Eyes: General: appearance normal, both eyes and all related structures Alignment and Position: alignment normal Periorbital: periorbital findings normal Eyelids: eyelids normal Conjunctivae: conjunctivae normal Sclera: sclerae normal Cornea: corneas normal Pupils: Equal, round and reactive pupils present EOM: EOMs intact bilateral
[2020-12-19] VITALS (11 sets, daily range): BP systolic 97–128; BP diastolic 61–82; PULSE 63–97; RESP 16–18; TEMP 36.1–36.5; O2SAT 93–100
[2020-12-19] MEDS: IPRATROPIUM BR 0.02% INH SOLN 0.5 MG/2.5 ML VIAL INHALATION ×3 (02:22→13:42)
[2020-12-19 05:12] LABS: Hematocrit 34.6 % (37.0-47.0); Hemoglobin 11.1 g/dL (12.0-15.0); Mean Corpuscular HGB Conc 32.1 g/dl (32-36); Mean Corpuscular Volume 90.3 fl (80-100); Mean Platelet Volume 9.5 fl (7.4-10.4); Platelet Count Result 233 k/mm3 (150-375); Red Blood Count 3.83 M/mm3 (4.2-5.4); Red Cell Distribution Width 14.3 % (11.5-14.5); White Blood Count 6.1 K/mm3 (4.5-10.0)
[2020-12-19 05:21] LABS: Alanine Aminotransferase 22 U/L (4-35); Albumin Level 3.7 g/dL (3.5-5.1); Alkaline Phosphatase 76 U/L (38-126); Anion Gap 7 mmol/L (8-16); Aspartate Amino Transferase 27 U/L (14-36); Bilirubin,Total 0.4 mg/dL (0.2-1.3); Blood Urea Nitrogen 9 mg/dL (7-17); Calcium 8.8 mg/dL (8.4-10.2); Carbon Dioxide 26 mmol/L (22-30); Chloride 105 mmol/L (98-107); Estimated CRCL calculation 72 ml/min; Estimated Glomerular Filt Rate > 60; Glucose 100 mg/dL (65-110); Magnesium 2.2 mg/dL (1.6-2.3); Potassium 3.5 mmol/L (3.4-5.0); Sodium 138 mmol/L (137-145)
[2020-12-19] MEDS: NITROFURANTOIN MONOHYD MACROCR 100 MG CAP PO (08:35)
[2020-12-19] MEDS: FAMOTIDINE 20 MG/2 ML VIAL IV PUSH (08:36)
[2020-12-19] MEDS: METOPROLOL TARTRATE 25 MG TABLET PO (08:36)
[2020-12-19] MEDS: ENOXAPARIN 80 MG/0.8 ML SYRINGE 64 MG SUB-Q (08:39)
--- NOTE | 2020-12-19 09:39 | PM.PNCARD ---
Progress Note: A&P Assessment and Plan (1) Atrial fibrillation with rapid ventricular response: Code(s): I48.91 - Unspecified atrial fibrillation <MEGGAN Donald - Last Filed: 12/19/20 10:00> Status: Acute <MEGGAN Donald - Last Filed: 12/19/20 10:00> Assessment and Plan: New onset, symptomatic atrial fibrillation with rapid ventricular response with shortness of breath, rapid palpitations, fatigue, cough setting of acute illness with UTI. The symptoms resolved with resolution of her atrial fibrillation. She does not appear to be in decompensated heart failure, negative serial troponin and no evidence of myocardial ischemia. Heart rate controlled with diltiazem infusion initially then converted to normal sinus rhythm. CHADS2-Vasc score of 1. ASA recommended for CVA risk reduction, however, pt intolerant due to easy bleeding, upset stomach, nausea. Discussed embolic CVA vs bleeding risk with ASA and A/C (Warfarin, Eliquis, Xarelto) although technically pt at lower risk for CVA. Ideally, then A/C would be advised. Discussed likelihood of recurrence of A.Fib in future. May observe for now if maintaining SR, but if recurrence systemic A/C moving forward an option for CVA risk reduction after shared decision making discussions. -Transition to oral AV bryan blocking agents Metoprolol 25mg BID and discontinue Diltiazem gtt. -Telemetry -Underlying infection very likely trigger for A.Fib, however, pt clearly has increased likelihood for recurrent A.Fib in future with CVA risk increasing over time as discussed. -2D echo showed normal systolic function, EF 60-65%, no significant valve pathology. Chamber sizes normal. PA pressures unable to be measured. She does have a small pericardial effusion. -Remains in sinus rhythm. Some tachycardia with activity. Would likely not be able to tolerate increase in metoprolol due to soft pressures. Continue metoprolol 25mg BID. <MEGGAN Donald - Last Filed: 12/19/20 10:00> (2) Urinary tract infection: Qualifiers: Hematuria presence: without hematuria Urinary tract infection type: acute cystitis Qualified Code(s): N30.00 - Acute cystitis without hematuria <MEGGAN Donald - Last Filed: 12/19/20 10:00> Code(s): N39.0 - Urinary tract infection, site not specified <MEGGAN Donald - Last Filed: 12/19/20 10:00> Status: Acute <MEGGAN Donald - Last Filed: 12/19/20 10:00> Assessment and Plan: Likely trigger for atrial fibrillation. Continue workup, treatment per primary service. <MEGGAN Donald - Last Filed: 12/19/20 10:00> (3) Nausea & vomiting: Qualifiers: Vomiting Intractability: non-intractable Vomiting type: unspecified Qualified Code(s): R11.2 - Nausea with vomiting, unspecified <MEGGAN Donald - Last Filed: 12/19/20 10:00> Code(s): R11.2 - Nausea with vomiting, unspecified <MEGGAN Donald - Last Filed: 12/19/20 10:00> Status: Acute <MEGGAN Donald - Last Filed: 12/19/20 10:00> Assessment and Plan: Secondary to underlying infection with symptoms exacerbated by new onset symptomatic AFib with RVR. <MEGGAN Donald - Last Filed: 12/19/20 10:00> Additional Plan I evaluated the patient and reviewed Lina Jay's note and agree with findings and plan of care as documented in the note. <Denilson Allen MD - Last Filed: 12/26/20 11:19> Subjective Date/time seen: 12/19/20 09:39 Date of service 12/19/20: She is feeling better today. She does say that when she got up to go to the bathroom and get cleaned up that she felt palpitations and some light headedness. Sinus tachycardia was noted on telemetry at that time. Otherwise, maintaining normal sinus rhythm. Denies chest pain, shortness of breath. <MEGGAN Donald - Last Filed: 12/19/20 10:00> Review of Systems Review of Sy
--- NOTE | 2020-12-19 16:37 | PM.DS ---
DS: Admitting Diagnosis Admitting Diagnosis Admitting Diagnosis: cough, nausea and vomiting DS: Discharge Diagnosis Discharge Diagnosis (1) Atrial fibrillation: Qualifiers: Atrial fibrillation type: paroxysmal Qualified Code(s): I48.0 - Paroxysmal atrial fibrillation Code(s): I48.91 - Unspecified atrial fibrillation Status: Inactive (2) Urinary tract infection: Qualifiers: Hematuria presence: without hematuria Urinary tract infection type: acute cystitis Qualified Code(s): N30.00 - Acute cystitis without hematuria Code(s): N39.0 - Urinary tract infection, site not specified Status: Acute (3) Nausea & vomiting: Qualifiers: Vomiting Intractability: non-intractable Vomiting type: unspecified Qualified Code(s): R11.2 - Nausea with vomiting, unspecified Code(s): R11.2 - Nausea with vomiting, unspecified Status: Acute DS: Summary Hospital Course Reason for hospitalization: 60yo female sent from [facility] for new onset AFib. Please see H&P for details. Hospital Course: Patient was seen in the ED on 12/15 for sore throat, chest congestions and vomiting. She was found to have a UTI and treated. She was discharged home on levaquin. She returned on 12/16 for persistent nausea and vomiting. She received Rocephin and Zofran and able to be discharged home again. She returned 12/17 to the ED for SOB and left chest pressure. She had an EKG showing AFib/RVR with rate at 154. She was transferred to [facility]. She was started on diltiazem 10mg/hour and given 10mg bolus. She was given lopressor 5mg IV. Her rate decreased into the 90s, and she seemed to be feeling better. She was given a liter of fluids for a lactic acid of 2.3. After transfer to [facility], patient converted to NSR. Echo showing EF 60-65% with diastolic dysfunction. Cardiology was involved in her care. Lovenox therapeutic dose started but her [id number] score of 1. CXR 12/15 showing scarring but no acute cardiopulmonary disease; repeat CXR on 12/[address] Abd/Pelvis was negative on 12/16. ASA recommended for CVA risk reduction, however, pt intolerant due to easy bleeding, upset stomach and nausea. Medications were adjusted. After a long discussion with the patient by the computer technology teacher, there is no plans for anticoagulation at this time. No further events as she was monitored on tele. Trop negative x 3. Repeat Lactic acid was normal. WBC elevated on her first ED visit but eventually normalized. labs otherwise were unremarkable. Nausea resolved and she is eating well. Group A strept cx negative on 12/15. UCx growing ESBL EColi 12/15 and abx changed to Cefepime. UCx 12/17 was negative. She was changed to Macrobid. She feels well today. Cough is better. She was having urinary symptoms prior to admission but this has resolved. Patient did well and was able to be discharged home. Status at Discharge Cognitive/behavioral status at discharge: stable Time Spent with Patient Time attestation: Total time spent providing and/or coordinating discharge services: 35 minutes Exam Narrative: Exam Narrative: AF 96.9 128/82 88 18 93% ra Gen - NARD sitting up in a chair Chest - scattered inspiratory rhonchi CV - RRR S1/S2; Tele showing no significant dysrhythmias Abd - Soft, NT/ND, Positive BS Ext - No pedal edema Neuro - Alert and oriented. Nonfocal exam. Psych - Nml mood and affect Skin - Warm and dry DS: Data Data Completed and Pending Labs on day of discharge: Labs from last 24 hours 12/19/20 12/19/20 04:21 04:21 WBC 6.1 RBC 3.83 L Hgb 11.1 L Hct 34.6 L MCV 90.3 MCH 29.0 MCHC 32.1 RDW 14.3 Plt Count 233 MPV 9.5 Sodium 138 Potassium 3.5 Chloride 105 Carbon Dioxide 26 Anion Gap 7 L BUN 9 Creatinine 0.70 Estim Creat Clear Calc 72 Estimated GFR > 60 Glucose 100 Calcium 8.8 Magnesium 2.2 Total Bilirubin 0.4 AST 27 ALT 22
== END 2020-12-19 17:24 | disposition home or self-care (01) ==
PROVIDERS: Nurse Practitioner; Admitting Provider Internal Medicine; PCP Physician Assistant; Visit Provider Internal Medicine
DX: I48.0 Paroxysmal atrial fibrillation (principal); N39.0 Urinary tract infection, site not specified; B96.20 Unspecified Escherichia coli [E. coli] as the cause of diseases classified elsewhere; R11.2 Nausea with vomiting, unspecified; R06.02 Shortness of breath; R07.89 Other chest pain
CPT/HCPCS: 36415; 80048; 80053; 83605; 83690; 83735; 84484; 85025; 85027; 85049; 93005; 93306; 94640; 96365; 96366; 96367; 96368; 96372; 96374; 96375; 96376; A9270; G0378; G0379; J0692; J0696; J1650

== ENCOUNTER 2021-02-28 13:04 | Emergency (ER) | payer OTHER, SELFPAY ==
--- NOTE | ~2021-02-28 | XR_ITS ---
EXAMINATION: XR chest 2V EXAM DATE: 02/28/2021 14:15 INDICATION: Chest pain. Headache. HX atrial fibrillation TECHNIQUE: Frontal and lateral projections of the chest obtained and reviewed. Comparison is made to prior examination from 12/17/2020. FINDINGS: The lungs are hyperinflated which can be seen with chronic obstructive pulmonary disease ( a clinical diagnosis of functional impairment), but is not diagnostic of it. Biapical scarring. The l ungs are otherwise clear. There are no pleural effusions. The cardiomediastinal silhouette is withi n normal limits. There is no pneumothorax suspected. The bones and soft tissues are unremarkable. IMPRESSION: 1. No acute cardiopulmonary findings. 2. Hyperinflation. Reviewed, dictated and finalized at location A.
--- NOTE | ~2021-02-28 | CT_ITS ---
EXAMINATION: CT brain wo [facility] EXAM DATE: 02/28/2021 14:05 INDICATION: Headache with nausea/vomiting . TECHNIQUE: Spiral CT of the head was performed without contrast. Axial, coronal and sagittal images were reviewed. The dose-length product (DLP) for this examination was 605.33 mGy-cm. The exposure w as tailored according to patient size, and iterative reconstruction (ASIR) was used as additional dos e reduction technique. There is no prior study for comparison. FINDINGS: There is no acute intraparenchymal hemorrhage. No evidence of intraparenchymal brain mass lesion. No evidence of acute infarction. Please note that initial head CT has limited sensitivity f or small or acute infarctions. There is periventricular and subcortical hypodensity, nonspecific but probably related to small vessel ischemic disease. There is prominence of the sulci and ventricles related to cerebral atrophy. There is intracranial carotid arteriosclerosis. There are no extra-a xial collections. There is no mass effect or midline shift. The orbits are unremarkable. Soft tiss ue is unremarkable. The visualized sinuses and mastoid air cells are well aerated. IMPRESSION: 1. No acute intracranial findings. 2. Chronic age related findings. Reviewed, dictated and finalized at location A.
[2021-02-28 13:14] VITALS: BP 174/84; PULSE 53; PULSE 54; RESP 16; RESP 18; TEMP 36.4; O2SAT 100
--- NOTE | 2021-02-28 13:14 | ECG_ITS ---
Measurements Intervals [place] Rate: 54 P: 68 [place]: 167 QRS: 58 QRSD: 80 T: 54 QT: 438 QTc: 417 Interpretive Statements SINUS BRADYCARDIA CANNOT RULE OUT SEPTAL INFARCT, AGE INDETERMINATE BASELINE ARTIFACT- I, II, III, AVR, AVL, AVF ABNORMAL ECG Electronically Signed On 02-28-2021 13:43:05 CDT by Mark Snider D.O.
--- NOTE | 2021-02-28 13:36 | ED.HA ---
HPI - Headache General Chief Complaint: Headache Stated Complaint: headache, cp, n/v Time Seen by Provider: 02/28/21 13:24 History of Present Illness HPI Narrative: Patient presents with a headache. Patient symptoms started around 0900 this morning. Symptoms associated with nausea and vomiting. Patient also reporting chest pain associated with her headache. She attempted some home therapies but threw up all of her medications so she came to the ER for evaluation. She denies shortness of breath, cough/ Related Data Home Medications Medication Instructions Recorded Confirmed metoprolol tartrate 50 mg tablet 50 mg PO DAILY 02/20/21 02/20/21 Allergies Allergy/AdvReac Type Severity Reaction Status Date / Time aspirin Allergy Mild Vomiting Verified 10/08/20 12:50 codeine Allergy Unknown Hives Verified 10/08/20 12:50 amoxicillin [From Augmentin] Allergy Unknown Verified 11/09/20 16:18 clavulanic acid Allergy Unknown Verified 11/09/20 16:18 [From Augmentin] Review of Systems Review of Systems: CONSTITUTIONAL: Denies fever, chills, or sweats. EYES: Denies visual changes, redness, or discharge. ENT: Denies rhinorrhea, congestion, sore throat, or otalgia. CARDIOVASCULAR: Denies palpitations, or edema. RESPIRATORY: Denies cough or dyspnea. GASTROINTESTINAL: Denies abdominal pain, nausea, vomiting, or diarrhea. GENITOURINARY: Denies dysuria or hematuria. SKIN: Denies rash or itching. MUSCULOSKELETAL: Denies back pain, joint pain, or myalgia. NEUROLOGIC: Denies numbness, or focal weakness. PSYCHIATRIC: Denies anxiety or depression. All systems reviewed & are unremarkable except as noted in HPI and below PMFSH Past Medical History Medical History Closed fracture of left tibial plateau Closed nondisp fx of lateral condyle of left tibia w/delayed healing Lumbar radiculopathy, acute Surgical History Surgical History H/O: hysterectomy History of appendectomy History of section, classical x2 Family History Family History Mother Diabetes mellitus Family history of cardiovascular disease Hypertension Cerebrovascular accident Heart disease Thyroid condition Father Hypertension Sibling Diabetes mellitus Thyroid condition Other Family history of malignant neoplasm Social History Social History Social History: the patient has 2 children. She lives with her beka who is the durable power manager career for healthcare. she desires to be a full code. She is . 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 The patient does not use any alcohol, marijuana, or illicit drugs. She quit smoking about tended 20 years ago. Years smoked: 5 Smoking status: Former smoker Tobacco type: cigarettes Alcohol intake: never Substance use: never Gender identity (if verbalized by the patient): Female Sexual Orientation (if Verbalized by the Patient): Straight or Heterosexual Spiritual care concerns: No Exam Narrative: GENERAL: Well-appearing, well-nourished, and in no acute distress. HEAD: Normocephalic, atraumatic. EYES: PERRLA and EOMI. ENT: Nares clear, no rhinorrhea or epistaxis. Mucous membranes moist. NECK: Supple. No masses. No JVD CHEST: Clear to auscultation. No respiratory distress. No wheezes rales or rhonchi HEART: Regular rate and rhythm. No murmur heard. Normal peripheral pulses. ABDOMEN: Soft, nontender, nondistended, normal active bowel sounds. EXTREMITIES: Normal range of motion. No edema. SKIN: Warm, dry, no rash. NEURO: Cranial nerves II through XII are intact patient has 5 out of 5 strength in all extremities no dysdiadochokinesia sensation intact to light touch in all extremities alert and oriented x3. PSYCH: Normal mood and affect. Co
[2021-02-28] MEDS: PROCHLORPERAZINE EDISYLATE 10 MG/2 ML VIAL IV PUSH (14:00)
[2021-02-28] MEDS: diphenhydrAMINE HCl INJ 50 MG/ML VIAL 25 MG IV PUSH (14:00)
[2021-02-28] MEDS: SODIUM CHLORIDE 0.9% IV 1,000 ML 999 ML IV CONT (14:00)
[2021-02-28 14:02] LABS: Basophils Absolute Auto 0.1 K/mm3 (0.0-0.1); Basophils Percent Auto 0.6 % (0.2-1.2); Eosinophils Absolute Auto 0.1 K/mm3 (0-0.3); Eosinophils Percent Auto 0.8 % (0-4.4); Hematocrit 37.9 % (37.0-47.0); Hemoglobin 12.7 g/dL (12.0-15.0); Immature Granulocyte Absolute 0.03 K/mm3 (0.00-0.031); Immature Granulocyte Percent A 0.3 % (0-0.5); Lymphocytes Percent Auto 13.4 % (18.3-44.2); Mean Corpuscular HGB Conc 33.5 g/dl (32-36); Mean Corpuscular Hemoglobin 29.5 pg (26-34); Mean Corpuscular Volume 87.9 fl (80-100); Mean Platelet Volume 9.3 fl (7.4-10.4); Monocytes Absolute Auto 0.4 K/mm3 (0.1-0.6); Monocytes Percent Auto 4.5 % (2.6-8.5); Neutrophils Absolute Auto 7.2 K/mm3 (1.3-6.7); Neutrophils Percent Auto 80.4 % (45.5-73.1); Platelet Count Result 240 k/mm3 (150-375); Red Blood Count 4.31 M/mm3 (4.2-5.4); Red Cell Distribution Width 13.7 % (11.5-14.5)
[2021-02-28 14:11] LABS: Alanine Aminotransferase 17 U/L (4-35); Albumin Level 4.7 g/dL (3.5-5.1); Alkaline Phosphatase 105 U/L (38-126); Anion Gap 10 mmol/L (8-16); Aspartate Amino Transferase 24 U/L (14-36); Bilirubin,Total 0.6 mg/dL (0.2-1.3); Blood Urea Nitrogen 11 mg/dL (7-17); Calcium 9.4 mg/dL (8.4-10.2); Carbon Dioxide 23 mmol/L (22-30); Chloride 103 mmol/L (98-107); Estimated CRCL calculation 72 ml/min; Estimated Glomerular Filt Rate > 60; Glucose 111 mg/dL (65-110); Lipase 103 U/L (23-300); Potassium 3.8 mmol/L (3.4-5.0); Sodium 136 mmol/L (137-145)
[2021-02-28 14:20] LABS: Troponin I < 0.012 ng/mL (0.000-0.034)
[2021-02-28 14:55] VITALS: PULSE 59; RESP 16; O2SAT 100
[2021-02-28 15:00] VITALS: PULSE 59; RESP 20; O2SAT 97
[2021-02-28 15:01] VITALS: BP 124/77; PULSE 56; RESP 18; O2SAT 97
[2021-02-28 15:13] LABS: Add Urine Microscopic? YES; Appearance Urine Clear (Clear); Bilirubin Urine Negative (Negative); Blood Urine 1+ (Negative); Color Urine Colorless (Yellow); Glucose Urine UA Negative (Negative); Ketones Urine Negative (Negative); Leukocyte Esterase Ur 1+ LEU/UL (Negative); Mucus Urine Rare /lpf; Nitrate Urine Negative (Negative); Protein Urine Negative (Negative); RBC Urine 0-2 /hpf (0-2); Specific Grav Ur 1.005 (1.001-1.035); Urobilinogen Urine Negative mg/dL (<2.0); WBC Urine 0-3 /hpf
[2021-02-28 15:21] VITALS: PULSE 70; RESP 18
[2021-02-28 15:41] VITALS: BP 137/78; PULSE 64; RESP 14; TEMP 36.6; O2SAT 99
== END 2021-02-28 15:42 | disposition home or self-care (01) ==
PROVIDERS: Emergency Medicine; Emergency Provider Emergency Medicine; PCP Internal Medicine
DX: R51.9 Headache, unspecified (principal); R42 Dizziness and giddiness; R11.2 Nausea with vomiting, unspecified; Z87.891 Personal history of nicotine dependence; R00.1 Bradycardia, unspecified; R94.31 Abnormal electrocardiogram [ECG] [EKG]
CPT/HCPCS: 36415; 70450; 71046; 80053; 81001; 81025; 83690; 84484; 85025; 93005; 96361; 96365; 96375; 99284; J0131; J0780; J1200; J7030

== ENCOUNTER 2021-03-23 22:55 | Emergency (ER) | payer OTHER, SELFPAY ==
--- NOTE | ~2021-03-23 | XR_ITS ---
EXAMINATION: XR chest 2V DATE: 03/23/2021 23:25 INDICATION: Chest pain TECHNIQUE: AP and lateral views of the chest are obtained. COMPARISON: 02/28/2021 FINDINGS: The lungs are hyperinflated but free of acute opacities. There is no pleural effusion or pn eumothorax. The cardiomediastinal silhouette is normal. There is moderate thoracic spondylosis. An ol d right eighth rib fracture is noted. IMPRESSION: 1. No acute cardiopulmonary abnormality. Reviewed, dictated and finalized at location A.
[2021-03-23 23:01] VITALS: BP 170/101; PULSE 109; RESP 17; TEMP 36.8; O2SAT 100
--- NOTE | 2021-03-23 23:09 | ECG_ITS ---
Measurements Intervals [place] Rate: 105 P: [place]: 0 QRS: 60 QRSD: 77 T: 43 QT: 307 QTc: 407 Interpretive Statements ATRIAL FIBRILLATION WITH RAPID VENTRICULAR RESPONSE ABNORMAL ECG Electronically Signed On 03-24-2021 6:41:42 CDT by Mark Snider D.O.
--- NOTE | 2021-03-23 23:14 | ED.ARRPALP ---
HPI - Arrhythmia/Palpitations General Chief Complaint: Arrhythmia/Palpitations <Dano Rahman MD - Last Filed: 03/23/21 23:18> Stated Complaint: Irregular heart beat <Dano Rahman MD - Last Filed: 03/23/21 23:18> Time Seen by Provider: 03/23/21 23:14 <Dano Rahman MD - Last Filed: 03/23/21 23:18> Source: patient <Dano Rahman MD - Last Filed: 03/23/21 23:18> Mode of arrival: ambulatory <Dano Rahman MD - Last Filed: 03/23/21 23:18> Limitations: no limitations <Dano Rahman MD - Last Filed: 03/23/21 23:18> History of Present Illness HPI narrative: Patient is a 58-year-old female complaining of palpitations, it is my A. fib , started 1 hour prior to arrival. Patient states that she only takes metoprolol for her A. fib, not on any oral anticoagulants due to history of GI bleeding. Patient denies any chest pain, shortness of breath, abdominal pain, nausea, vomiting, diarrhea, fever or chills. <Dano Rahman MD - Last Filed: 03/23/21 23:18> Related Data Home Medications: Home Medications Medication Instructions Recorded Confirmed metoprolol tartrate 50 mg tablet 50 mg PO DAILY 02/20/21 02/20/21 <Dano Rahman MD - Last Filed: 03/23/21 23:18> Allergies/Adverse Reactions: Allergies Allergy/AdvReac Type Severity Reaction Status Date / Time aspirin Allergy Mild Vomiting Verified 10/08/20 12:50 codeine Allergy Unknown Hives Verified 10/08/20 12:50 amoxicillin [From Augmentin] Allergy Unknown Verified 11/09/20 16:18 clavulanic acid Allergy Unknown Verified 11/09/20 16:18 [From Augmentin] <Dano Rahman MD - Last Filed: 03/23/21 23:18> Review of Systems Review of Systems: All systems reviewed & are unremarkable except as noted in HPI and below <Dano Rahman MD - Last Filed: 03/23/21 23:18> Constitutional: Constitutional: Reports as per HPI, Denies body ache(s), Denies chills, Denies excessive sweating, Denies fatigue, Denies fever(s), Denies headache(s), Denies lethargy, Denies malaise, Denies weakness and Denies weight loss <Dano Rahman MD - Last Filed: 03/23/21 23:18> Eyes: Eyes: Denies blurry vision, Denies change in vision and Denies loss of vision <Dano Rahman MD - Last Filed: 03/23/21 23:18> ENT: Denies dizziness, Denies ear discharge, Denies headache(s), Denies lip swelling, Denies epistaxis, Denies nasal congestion, Denies neck pain, Denies throat swelling and Denies tongue swelling <Dano Rahman MD - Last Filed: 03/23/21 23:18> Cardiovascular: Cardiovascular: Denies chest pain, Denies chest pain at rest, Denies chest pain with activity, Denies diaphoresis, Denies rapid heart rate, Denies edema, Denies irregular heart rhythm, Denies lightheadedness, Denies palpitations, Denies dyspnea and Denies dyspnea on exertion <Dano Rahman MD - Last Filed: 03/23/21 23:18> Respiratory: Respiratory: Denies chest congestion, Denies cough, Denies hemoptysis, Denies dyspnea and Denies dyspnea on exertion <Dano Rahman MD - Last Filed: 03/23/21 23:18> Gastrointestinal: Gastrointestinal: Denies abdominal pain, Denies melena, Denies hematochezia, Denies diarrhea, Denies nausea, Denies vomiting and Denies hematemesis <Dano Rahman MD - Last Filed: 03/23/21 23:18> Musculoskeletal: Musculoskeletal: Denies abnormal gait, Denies deformity, Denies joint swelling, Denies limited range of motion, Denies neck pain and Denies numbness <Dano Rahman MD - Last Filed: 03/23/21 23:18> Neurologic: Denies Abnormal speech present, Denies abnormal gait, Denies confusion, Denies dizziness, Denies headache(s), Denies focal weakness, Denies loss of vision, Denies numbness, Denies Other visual disturbances, Denies Sensory deficit (Neuro) and Denies weakness <Dano Rahman MD - Last Filed: 03/23/21 23:18> Psychiatric: Psychiatric: Denies confusion, Denies depression, Denies auditory halluci
[2021-03-23 23:19] LABS: Basophils Absolute Auto 0.1 K/mm3 (0.0-0.1); Basophils Percent Auto 0.7 % (0.2-1.2); Eosinophils Absolute Auto 0.2 K/mm3 (0-0.3); Eosinophils Percent Auto 2.3 % (0-4.4); Hematocrit 40.2 % (37.0-47.0); Hemoglobin 13.3 g/dL (12.0-15.0); Immature Granulocyte Absolute 0.02 K/mm3 (0.00-0.031); Immature Granulocyte Percent A 0.2 % (0-0.5); Lymphocytes Absolute Auto 2.77 K/mm3 (0.9-3.2); Lymphocytes Percent Auto 33.9 % (18.3-44.2); Mean Corpuscular HGB Conc 33.1 g/dl (32-36); Mean Corpuscular Hemoglobin 29.9 pg (26-34); Mean Corpuscular Volume 90.3 fl (80-100); Mean Platelet Volume 9.5 fl (7.4-10.4); Monocytes Absolute Auto 0.7 K/mm3 (0.1-0.6); Monocytes Percent Auto 8.9 % (2.6-8.5); Neutrophils Absolute Auto 4.4 K/mm3 (1.3-6.7); Platelet Count Result 240 k/mm3 (150-375); Red Blood Count 4.45 M/mm3 (4.2-5.4); Red Cell Distribution Width 13.8 % (11.5-14.5); White Blood Count 8.2 K/mm3 (4.5-10.0)
[2021-03-23 23:29] LABS: INR 0.9; Partial Thromboplastin Time 25.5 SECONDS (22.3-36.8)
[2021-03-23] MEDS: LACTATED RINGERS 1,000 ML 999 ML IV CONT (23:39)
[2021-03-23] MEDS: dilTIAZem HCl INJ 25 MG/5 ML VIAL 20 MG IV PUSH (23:40)
[2021-03-23 23:41] LABS: Anion Gap 8 mmol/L (8-16); Blood Urea Nitrogen 19 mg/dL (7-17); Calcium 9.5 mg/dL (8.4-10.2); Carbon Dioxide 27 mmol/L (22-30); Chloride 105 mmol/L (98-107); Estimated CRCL calculation 64 ml/min; Estimated Glomerular Filt Rate > 60; Glucose 116 mg/dL (65-110); Potassium 3.6 mmol/L (3.4-5.0); Sodium 140 mmol/L (137-145)
[2021-03-23 23:53] LABS: Troponin I < 0.012 ng/mL (0.000-0.034)
[2021-03-24 00:34] VITALS: BP 120/75; PULSE 67; RESP 14; O2SAT 100
[2021-03-24 02:02] LABS: Troponin I < 0.012 ng/mL (0.000-0.034)
[2021-03-24 02:11] VITALS: BP 117/89; PULSE 73; RESP 20; O2SAT 100
== END 2021-03-24 02:16 | disposition home or self-care (01) ==
PROVIDERS: Emergency Provider Emergency Medicine; PCP Internal Medicine
DX: I48.91 Unspecified atrial fibrillation (principal); Z87.891 Personal history of nicotine dependence
CPT/HCPCS: 36415; 71046; 80048; 84484; 85025; 85610; 85730; 93005; 96361; 96374; 99284; J7120

== ENCOUNTER 2021-04-14 10:34 | Outpatient (CLI) | payer OTHER, SELFPAY ==
--- NOTE | ~2021-04-14 | MM_ITS ---
EXAMINATION: MM screening bridgette BI w geraldo HISTORY: Screening mammogram TECHNIQUE: Craniocaudal and mediolateral oblique 3-D tomosynthesis images were obtained and synthetic 2-D images were generated. CAD analysis was submitted and interpreted. COMPARISON: No prior mammogram is available for comparison at this institution. BREAST PARENCHYMAL COMPOSITION: There are scattered areas of fibroglandular density. FINDINGS: There is no evidence of suspicious mass, calcification, or architectural distortion to sugg est malignancy in either breast. IMPRESSION: 1. No mammographic evidence of malignancy. 2. Recommend routine screening mammography in one year. BI-RADS Category 1: Negative Reviewed, dictated and finalized at location A. SDET
--- NOTE | ~2021-04-14 | DEXA_ITS ---
Bone Density Report Name: Surekha Fisher Age: 60 Sex: Female Ethnicity: White Date of : 1960 Indication: postmenopausal; parental hip fracture; height loss; prior fracture; hysterectomy; Referring Provider: Lina Griffin Study: Bone densitometry was performed. Exam Date: April 14, 2021 Accession number: [id number] Bone Density: Region BMD T-score Z-score Classification AP Spine (L1-L4) 0.797 -2.3 -0.7 Osteopenia Femoral Neck (Left) 0.515 -3.0 -1.6 Osteoporosis Total Hip (Left) 0.623 -2.6 -1.5 Osteoporosis Total Hip Bilateral Avg 0.621 -2.6 -1.6 Osteoporosis Femoral Neck (Right) 0.531 -2.9 -1.5 Osteoporosis Total Hip (Right) 0.617 -2.7 -1.6 Osteoporosis World Health Organization criteria for BMD impression classify patients as: Normal (T-score at or above -1.0), Osteopenia (T-score between -1.0 and -2.5), or Osteoporosis (T-score at or below -2.5). 10-year Fracture Risk: FRAX not reported because: Some T-score for Spine Total or Hip Total or Femoral Neck at or below -2.5 Clinical Information Provided by Patient: Has had a low trauma fracture Parent has had a hip fracture Has the following medical conditions: Hysterectomy Patient maximum height was 68 Menopause Age: 32 Drinks caffeinated beverages Onset of menses at age 11 Number of children 2 Impression: The patient has established osteoporosis, based on the Left Femoral Neck T-score and the existence of a prior fracture. The patient has risk factors, including: parental hip fracture, previous fracture. Discussion: HIGH RISK OF FRACTURE. BONE DENSITY IS UNDESIRABLY LOW AT ONE OR MORE SKELETAL SITES, CONSISTENT WITH POSTMENOPAUSAL OSTEOPOROSIS. This patient's lowest T-score, in a patient who has previously fractured, meets the World Health Organization's (WHO) criteria for severe osteoporosis. In untreated patients, the risk of osteoporotic fracture increases approximately two-fold for each 1.0 SD decrease in T-score. Low bone density is not the only risk factor for fracture; also consider factors such as patient's age, frailty or poor health, risk of falling, risk of injury, previous osteoporotic fracture, family history of osteoporosis, cigarette smoking, low body weight, etc. Not everyone with low bone mineral density has osteoporosis; osteomalacia and other metabolic bone disorders should also be considered. Patients who have osteoporosis should be evaluated for specific diseases and conditions (secondary causes) that may cause or contribute to bone loss. The [place] [employer] Endocrinologists (AACE) and National Osteoporosis Foundation (NOF) recommend pharmacologic intervention for all postmenopausal women whose T-score is in this range. The patient should follow a healthful lifestyle (good nutrition with adequate calcium and vitamin D, an
== END 2021-04-14 10:35 | disposition home or self-care (01) ==
LOC: ANHIMG 10:35
PROVIDERS: PCP Internal Medicine; Visit Provider Nurse Practitioner
DX: Z12.31 Encounter for screening mammogram for malignant neoplasm of breast (principal); Z78.0 Asymptomatic menopausal state; M81.0 Age-related osteoporosis without current pathological fracture; M85.88 Other specified disorders of bone density and structure, other site
CPT/HCPCS: 77063; 77067; 77080

== ENCOUNTER 2021-06-09 22:34 | Emergency (ER) | payer OTHER, SELFPAY ==
[2021-06-09] VITALS (9 sets, daily range): BP systolic 119–166; BP diastolic 81–100; PULSE 77–105; RESP 16–23; TEMP 36.4; O2SAT 96–100
--- NOTE | ~2021-06-09 | XR_ITS ---
XR chest 1V portable 06/09/2021 22:55 Indication: Chest palpitations. Procedure: AP portable chest Comparison: Comparison to multiple prior studies sequentially, with oldest reviewed study dated 12/15. Findings: Heart size normal. Bibasilar infiltrates may represent atelectasis or developing pneumonia. The lungs are hyperinflated which is consistent with, but not diagnostic of chronic obstructive pulm onary disease. There is apical pleural thickening/scarring. Impression: 1: Bibasilar infiltrates which may represent atelectasis or developing pneumonia. Reviewed, dictated and finalized at location A. R QUALITY TESTER Impression: 1: Bibasilar infiltrates which may represent atelectasis or developing pneumoni a.
--- NOTE | 2021-06-09 22:35 | ECG_ITS ---
Measurements Intervals [place] Rate: 81 P: [place]: 0 QRS: 60 QRSD: 87 T: 58 QT: 338 QTc: 393 Interpretive Statements ATRIAL FIBRILLATION CANNOT RULE OUT SEPTAL INFARCT, AGE INDETERMINATE ABNORMAL ECG Electronically Signed On 06-10-2021 6:12:03 [employer]YEGLASS [employer]UTTER by Mark Snider D.O.
[2021-06-09] MEDS: METOPROLOL TARTRATE INJ 5 MG/5 ML VIAL IV PUSH (23:02)
[2021-06-09 23:10] LABS: Basophils Absolute Auto 0.1 K/mm3 (0.0-0.1); Basophils Percent Auto 0.7 % (0.2-1.2); Eosinophils Absolute Auto 0.2 K/mm3 (0-0.3); Eosinophils Percent Auto 2.1 % (0-4.4); Hematocrit 39.4 % (37.0-47.0); Hemoglobin 13.3 g/dL (12.0-15.0); Immature Granulocyte Absolute 0.02 K/mm3 (0.00-0.031); Immature Granulocyte Percent A 0.3 % (0-0.5); Lymphocytes Absolute Auto 2.45 K/mm3 (0.9-3.2); Mean Corpuscular HGB Conc 33.8 g/dl (32-36); Mean Corpuscular Hemoglobin 30.4 pg (26-34); Mean Platelet Volume 9.4 fl (7.4-10.4); Monocytes Absolute Auto 0.5 K/mm3 (0.1-0.6); Monocytes Percent Auto 6.8 % (2.6-8.5); Neutrophils Absolute Auto 4.1 K/mm3 (1.3-6.7); Neutrophils Percent Auto 56.1 % (45.5-73.1); Platelet Count Result 242 k/mm3 (150-375); Red Blood Count 4.38 M/mm3 (4.2-5.4); Red Cell Distribution Width 13.9 % (11.5-14.5); White Blood Count 7.2 K/mm3 (4.5-10.0)
[2021-06-09 23:21] LABS: Alanine Aminotransferase 19 U/L (4-35); Albumin Level 4.4 g/dL (3.5-5.1); Alkaline Phosphatase 88 U/L (38-126); Anion Gap 10 mmol/L (8-16); Aspartate Amino Transferase 23 U/L (14-36); Bilirubin,Total 0.3 mg/dL (0.2-1.3); Blood Urea Nitrogen 16 mg/dL (7-17); Calcium 9.4 mg/dL (8.4-10.2); Carbon Dioxide 24 mmol/L (22-30); Chloride 105 mmol/L (98-107); Estimated CRCL calculation 64 ml/min; Estimated Glomerular Filt Rate > 60; Glucose 137 mg/dL (65-110); Magnesium 2.2 mg/dL (1.6-2.3); Potassium 3.7 mmol/L (3.4-5.0); Sodium 139 mmol/L (137-145)
--- NOTE | 2021-06-09 23:23 | ED.GENADULT ---
HPI - General Adult General Chief complaint: Arrhythmia/Palpitations Stated complaint: afib is out of sync Time Seen by Provider: 06/09/21 22:41 History of Present Illness HPI narrative: Patient is a 60-year-old female with prior history of atrial fibrillation the presents the emergency department with chief complaint of palpitations. Patient reports that she has history of A. fib and reports that today her heart rate was faster than normal patient took an extra 25 mg of Lopressor and noted that her heart rate still been beating fast. Patient reports her heart rate is up to 117. Patient states that she said no chest pain no shortness of breath no syncope. The patient states that her heart rate does get out of control at times. The patient reports no new changes in her medications reports that she is not on anticoagulation due to GI bleed from being on aspirin. Related Data Home Medications Medication Instructions Recorded Confirmed metoprolol tartrate 50 mg tablet 50 mg PO DAILY 02/20/21 02/20/21 Allergies Allergy/AdvReac Type Severity Reaction Status Date / Time aspirin Allergy Mild Vomiting Verified 06/09/21 22:42 codeine Allergy Unknown Hives Verified 06/09/21 22:42 amoxicillin [From Augmentin] Allergy Unknown Verified 06/09/21 22:42 clavulanic acid Allergy Unknown Verified 06/09/21 22:42 [From Augmentin] Review of Systems Review of Systems: A 10 system review of systems was completed on the patient and is negative except for what is stated in the HPI. Nursing and ancillary documentation was reviewed. PMFSH Past Medical History Medical History Closed fracture of left tibial plateau Closed nondisp fx of lateral condyle of left tibia w/delayed healing Lumbar radiculopathy, acute Surgical History Surgical History H/O: hysterectomy History of appendectomy History of section, classical x2 Family History Family History Mother Diabetes mellitus Family history of cardiovascular disease Hypertension Cerebrovascular accident Heart disease Thyroid condition Father Hypertension Sibling Diabetes mellitus Thyroid condition Other Family history of malignant neoplasm Social History Social History Social History: the patient has 2 children. She lives with her fijorden who is the durable power litigation attorney for healthcare. she desires to be a full code. She is . 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 The patient does not use any alcohol, marijuana, or illicit drugs. She quit smoking about tended 20 years ago. Years smoked: 5 Smoking status: Former smoker Tobacco type: cigarettes Alcohol intake: never Substance use: never Gender identity (if verbalized by the patient): Female Sexual Orientation (if Verbalized by the Patient): Straight or Heterosexual Spiritual care concerns: No Exam Narrative: GENERAL: Well-appearing, well-nourished, and in no acute distress. HEAD: Normocephalic, atraumatic. EYES: PERRLA and EOMI. ENT: Nares clear, no rhinorrhea or epistaxis. Mucous membranes moist. NECK: Supple. CHEST: Clear to auscultation. No respiratory distress. HEART: Irregularly rate and rhythm. No murmur heard. Normal peripheral pulses. ABDOMEN: Soft, nontender, nondistended, normal active bowel sounds. EXTREMITIES: Normal range of motion. No edema. SKIN: Warm, dry, no rash. NEURO: No focal deficits. Alert and oriented x3. PSYCH: Normal mood and affect. Course Course Emergency Course: Chest x-ray shows no evidence of focal infiltrate EKG is atrial fibrillation with a rate of [address] elevation or ST depression Vital Signs Vital signs: Vital Signs Temperature 36.4 C 06/09/21 22:38 Pulse Rate
[2021-06-09 23:33] LABS: Troponin I < 0.012 ng/mL (0.000-0.034)
[2021-06-10] VITALS: PULSE 87; RESP 23; O2SAT 97
[2021-06-10 00:01] VITALS: BP 113/89; PULSE 89; RESP 22; O2SAT 97
[2021-06-10 00:17] VITALS: PULSE 88; RESP 14; O2SAT 97
[2021-06-10 00:28] VITALS: PULSE 89
[2021-06-10] MEDS: METOPROLOL TARTRATE INJ 5 MG/5 ML VIAL IV PUSH (00:28)
[2021-06-10 01:03] VITALS: BP 111/65; PULSE 86; RESP 21; O2SAT 97
--- NOTE | 2021-06-10 01:51 | PC.NURSE ---
Patient ambulates to the bathroom with a steady gait. Patient states she feels much better and is okay to go home.ERP notified.
[2021-06-10 02:02] VITALS: BP 115/92; PULSE 89; RESP 18; O2SAT 99
== END 2021-06-10 02:04 | disposition home or self-care (01) ==
PROVIDERS: Emergency Provider Emergency Medicine; PCP Internal Medicine
DX: I48.91 Unspecified atrial fibrillation (principal); Z87.891 Personal history of nicotine dependence; R94.31 Abnormal electrocardiogram [ECG] [EKG]
CPT/HCPCS: 36415; 71045; 80053; 83735; 84484; 85025; 93005; 96374; 99284

== ENCOUNTER 2021-07-19 07:58 | Emergency (ER) | payer OTHER, SELFPAY ==
[2021-07-19 08:18] VITALS: BP 140/84; PULSE 96; RESP 20; TEMP 37.7; O2SAT 98
[2021-07-19] MEDS: SODIUM CHLORIDE 0.9% IV 1,000 ML 999 ML IV CONT (08:35)
[2021-07-19] MEDS: ONDANSETRON INJ 4 MG/2 ML VIAL IV PUSH (08:35)
[2021-07-19 08:58] LABS: Alanine Aminotransferase 71 U/L (14-59); Albumin Level 3.9 g/dL (3.4-5.0); Alkaline Phosphatase 117 U/L (46-116); Anion Gap 10 mmol/L (8-16); Aspartate Amino Transferase 46 U/L (15-37); Bilirubin,Total 0.4 mg/dL (0.00-1.00); Blood Urea Nitrogen 7 mg/dL (7-18); Calcium 8.7 mg/dL (8.5-10.1); Carbon Dioxide 25 mmol/L (21-32); Chloride 99 mmol/L (98-108); Estimated CRCL calculation 59 ml/min; Estimated Glomerular Filt Rate > 60; Glucose 114 mg/dL (70-99); Osmolality Calculated 277 mOsm/kg (285-295); Sodium 134 mmol/L (136-145); Total Protein 7.3 g/dL (6.4-8.2)
--- NOTE | 2021-07-19 09:15 | ED.NAVMDI ---
HPI - Nausea/Vomiting/Diarrhea General Chief complaint: Nausea/Vomiting/Diarrhea Stated complaint: VOMITTING SORE THROAT Time Seen by Provider: 07/19/21 09:15 Source: patient Mode of arrival: ambulatory Limitations: no limitations History of Present Illness HPI Narrative: this is a 60-year-old female with history of atrial fibrillation presents with some nausea and vomiting that started yesterday patient has some postnasal phlegm with bilateral ear pressure left greater than right low-grade fever 99.9 here in the ER patient that her temperature is little higher than that at. Does have frontal sinus pressure maxillary sinus pressure, with no shortness of breath no pain no diarrhea constipation. Currently no flank pain no dysuria no hematuria. MD elicited complaint: nausea and vomiting Description of vomiting: watery Associated nausea: Yes Associated abdominal pain: No Severity: mild Related Data Home Medications Medication Instructions Recorded Confirmed famotidine 20 mg tablet 20 mg PO DAILY 06/27/21 07/19/21 flecainide 50 mg tablet 50 mg PO Q12H 06/27/21 07/19/21 metoprolol tartrate 50 mg tablet 25 mg PO DAILY tablet 06/27/21 07/19/21 Allergies Allergy/AdvReac Type Severity Reaction Status Date / Time aspirin Allergy Mild Vomiting Verified 06/09/21 22:42 codeine Allergy Unknown Hives Verified 06/09/21 22:42 amoxicillin [From Augmentin] Allergy Unknown Verified 06/09/21 22:42 clavulanic acid Allergy Unknown Verified 06/09/21 22:42 [From Augmentin] Review of Systems Review of Systems: All systems reviewed & are unremarkable except as noted in HPI and below PMFSH Past Medical History Medical History Closed fracture of left tibial plateau Closed nondisp fx of lateral condyle of left tibia w/delayed healing Lumbar radiculopathy, acute Vitamin D deficiency Surgical History Surgical History H/O: hysterectomy History of appendectomy History of section, classical x2 Family History Family History Mother Diabetes mellitus Family history of cardiovascular disease Hypertension Cerebrovascular accident Heart disease Thyroid condition Father Hypertension Sibling Diabetes mellitus Thyroid condition Other Family history of malignant neoplasm Social History Social History Social History: the patient has 2 children. She lives with her fianc? who is the durable power disability attorney for healthcare. she desires to be a full code. She is . 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 The patient does not use any alcohol, marijuana, or illicit drugs. She quit smoking about tended 20 years ago. Years smoked: 5 Smoking status: Former smoker Tobacco type: cigarettes Alcohol intake: never Substance use: never Gender identity (if verbalized by the patient): Female Sexual Orientation (if Verbalized by the Patient): Straight or Heterosexual Spiritual care concerns: No Exam Const: General: no acute distress Orientation/consciousness: patient oriented x3 HENMT: Head: normal to inspection Other: Frontal maxillary sinus tenderness to palpation with bilateral tympanic membrane dullness. Eyes: Pupils: Equal, round and reactive pupils present EOM: EOMs intact bilaterally Neck: Neck: normal visual inspection, no lymphadenopathy and no meningeal signs Chest: Chest palpation & inspection: normal inspection of the chest Resp: Effort & Inspection: normal respiratory effort Auscultation: clear to auscultation bilaterally Cardio: Rate: regular rate Rhythm: abnormal rhythm GI: GI Palp: Yes Soft to palpation Percussion: Yes normal to percussion Urinary Catheter: Urinary Catheter: patent and draining Skin: General skin exam: normal color
[2021-07-19] MEDS: ACETAMINOPHEN 500 MG TABLET 1000 MG PO (09:26)
[2021-07-19 09:28] VITALS: BP 132/78; PULSE 78; RESP 20; TEMP 37.7; O2SAT 97
== END 2021-07-19 09:31 | disposition home or self-care (01) ==
PROVIDERS: Emergency Provider Emergency Medicine; PCP Internal Medicine
DX: R11.2 Nausea with vomiting, unspecified (principal); J01.10 Acute frontal sinusitis, unspecified
CPT/HCPCS: 80053; 87081; 87880; 96361; 96374; 99284; J2405; J7030

== ENCOUNTER 2021-08-03 08:56 | Outpatient (CLI) | payer OTHER, SELFPAY ==
[2021-08-03 09:49] LABS: Anion Gap 5 mmol/L (8-16); Blood Urea Nitrogen 13 mg/dL (7-17); Calcium 8.9 mg/dL (8.4-10.2); Carbon Dioxide 29 mmol/L (22-30); Chloride 103 mmol/L (98-107); Estimated Glomerular Filt Rate > 60; Glucose 100 mg/dL (65-110); Potassium 4.6 mmol/L (3.4-5.0); Sodium 137 mmol/L (137-145)
== END 2021-08-03 08:57 | disposition home or self-care (01) ==
LOC: ANHLAB 08:58
PROVIDERS: PCP Internal Medicine; Visit Provider Internal Medicine Cardiovascular Disease
DX: I48.0 Paroxysmal atrial fibrillation (principal)
CPT/HCPCS: 36415; 80048

== ENCOUNTER 2021-08-30 10:39 | Outpatient (CLI) | payer OTHER, SELFPAY ==
--- NOTE | ~2021-08-30 | XR_ITS ---
EXAMINATION: XR hand RT 2V EXAM DATE: 08/30/2021 11:01 INDICATION: M79.641 - Pain/Swelling Handx1 Day, Worse 2nd Digit, No Inj . TECHNIQUE: Frontal and lateral projections of the right hand. Correlation is made to right 2nd finge r x-ray from 2013. FINDINGS: There is mild to moderate right and polyarticular interphalangeal primary osteoarthritis. T here are no bony erosions identified. There are no acute fractures or dislocations identified. Th ere is no subcutaneous gas. The soft tissue is unremarkable. There are no radiopaque foreign maribel s. Previously seen tuft fracture has healed. IMPRESSION: Mild to moderate right hand polyarticular osteoarthritis. Reviewed, dictated and finalized at location B.
== END 2021-08-30 10:40 | disposition home or self-care (01) ==
PROVIDERS: PCP Internal Medicine; Visit Provider Nurse Practitioner
DX: M79.641 Pain in right hand (principal); M79.642 Pain in left hand; M19.041 Primary osteoarthritis, right hand
CPT/HCPCS: 73120

== ENCOUNTER 2021-09-23 06:47 | Emergency (ER) | payer OTHER, SELFPAY ==
--- NOTE | 2021-09-23 06:49 | ECG_ITS ---
Measurements Intervals [place] Rate: 66 P: 74 OH: 191 QRS: 57 QRSD: 77 T: 57 QT: 391 QTc: 412 Interpretive Statements SINUS RHYTHM ANTEROSEPTAL MYOCARDIAL INFARCTION , OLD [40+ ms Q WAVE IN V1-V4] COMPARED TO ECG 06/09/2021 22:39:27 SINUS RHYTHM NOW PRESENT Electronically Signed On 09-23-2021 8:11:09 CDT by Louis Morgan M.D.
[2021-09-23 06:50] VITALS: BP 133/88; PULSE 69; RESP 16; TEMP 37; O2SAT 99
[2021-09-23 07:08] LABS: Basophils Percent Auto 0.7 % (0.2-1.2); Eosinophils Absolute Auto 0.1 K/mm3 (0-0.3); Eosinophils Percent Auto 2.4 % (0-4.4); Hemoglobin 13.7 g/dL (12.0-15.0); Immature Granulocyte Absolute 0.01 K/mm3 (0.00-0.031); Immature Granulocyte Percent A 0.2 % (0-0.5); Lymphocytes Absolute Auto 1.93 K/mm3 (0.9-3.2); Lymphocytes Percent Auto 32.6 % (18.3-44.2); Mean Corpuscular HGB Conc 32.6 g/dl (32-36); Mean Corpuscular Hemoglobin 29.7 pg (26-34); Mean Corpuscular Volume 91.1 fl (80-100); Mean Platelet Volume 9.5 fl (7.4-10.4); Monocytes Absolute Auto 0.7 K/mm3 (0.1-0.6); Monocytes Percent Auto 12.5 % (2.6-8.5); Neutrophils Absolute Auto 3.1 K/mm3 (1.3-6.7); Neutrophils Percent Auto 51.6 % (45.5-73.1); Platelet Count Result 243 k/mm3 (150-375); Red Blood Count 4.61 M/mm3 (4.2-5.4); Red Cell Distribution Width 14.2 % (11.5-14.5); White Blood Count 5.9 K/mm3 (4.5-10.0)
--- NOTE | 2021-09-23 07:13 | ED.ARRPALP ---
HPI - Arrhythmia/Palpitations General Chief Complaint: Arrhythmia/Palpitations Stated Complaint: A FIB Time Seen by Provider: 09/23/21 06:53 Source: patient, family and RN notes reviewed Mode of arrival: ambulatory Limitations: no limitations History of Present Illness HPI narrative: 61-year-old female with history of atrial fibrillation on metoprolol and flecainide presenting to the emergency department for evaluation of acute onset of atrial fibrillation. Patient states when she was asleep at approximately 5:30 in the morning she felt herself kick into A. fib. Patient did take her morning dose of flecainide and presented to the emergency department. Patient states that at approximately 7 AM she did convert back into normal sinus. Patient states while she was in A. fib she had no associated chest pain. Patient states she did feel fluttering in her chest and did feel uneasy but states this is typical for her paroxysmal A. fib. Patient does have follow-up with cardiology, Dr. Vale. Reports yesterday after working in the yard she did have an episode of heartburn . Patient denied any chest pain with the atrial fibrillation. Patient states that she did have a stress test a few months ago and that was negative. Patient denies any prior history of MD. Related Data Home Medications Medication Instructions Recorded Confirmed famotidine 20 mg tablet 20 mg PO DAILY 06/27/21 08/30/21 flecainide 50 mg tablet 50 mg PO Q12H 06/27/21 08/30/21 aspirin 81 mg capsule 81 mg PO DAILY 08/21/21 08/30/21 metoprolol succinate 25 mg 25 mg PO DAILY 08/21/21 08/30/21 tablet,extended release 24 hr Allergies Allergy/AdvReac Type Severity Reaction Status Date / Time codeine Allergy Unknown Hives Verified 09/23/21 06:59 amoxicillin [From Augmentin] Allergy Unknown Verified 09/23/21 06:59 clavulanic acid Allergy Unknown Verified 09/23/21 06:59 [From Augmentin] Review of Systems Review of Systems: CONSTITUTIONAL: Denies fever, chills, or sweats. EYES: Denies visual changes, redness, or discharge. ENT: Denies rhinorrhea, congestion, sore throat, or otalgia. CARDIOVASCULAR: See HPI RESPIRATORY: Denies cough or dyspnea. GASTROINTESTINAL: Denies abdominal pain, nausea, vomiting, or diarrhea. GENITOURINARY: Denies dysuria or hematuria. SKIN: Denies rash or itching. MUSCULOSKELETAL: Denies back pain, joint pain, or myalgia. NEUROLOGIC: Denies headache, numbness, or weakness. [facility] Past Medical History Medical History (Updated 09/23/21 @ 07:53 by Gentry Dai MD) Age related osteoporosis Chronic a-fib Closed fracture of left tibial plateau Closed nondisp fx of lateral condyle of left tibia w/delayed healing Lumbar radiculopathy, acute Positive SARAH (antinuclear antibody) Vitamin D deficiency Surgical History Surgical History H/O: hysterectomy History of appendectomy History of section, classical x2 Family History Family History Mother Diabetes mellitus Family history of cardiovascular disease Hypertension Cerebrovascular accident Heart disease Thyroid condition Father Hypertension Sibling Diabetes mellitus Thyroid condition Other Family history of malignant neoplasm Social History Social History Social History: the patient has 2 children. She lives with her fianc? who is the durable power leaf conditioner helper for healthcare. she desires to be a full code. She is . 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 The patient does not use any alcohol, marijuana, or illicit drugs. She quit smoking about tended 20 years ago. Years smoked: 5 Smoking status: Former smoker Tobacco type: cigarettes Alcohol intake: never Substance use: never Gender identity (if verbalized by the patient): Female Sexual Orientation (if
[2021-09-23 07:16] LABS: Alanine Aminotransferase 18 U/L (4-35); Albumin Level 4.5 g/dL (3.5-5.1); Alkaline Phosphatase 85 U/L (38-126); Anion Gap 8 mmol/L (8-16); Aspartate Amino Transferase 29 U/L (14-36); Bilirubin,Total 0.4 mg/dL (0.2-1.3); Blood Urea Nitrogen 13 mg/dL (7-17); Calcium 8.8 mg/dL (8.4-10.2); Carbon Dioxide 24 mmol/L (22-30); Chloride 107 mmol/L (98-107); Estimated CRCL calculation 63 ml/min; Estimated Glomerular Filt Rate > 60; Glucose 107 mg/dL (65-110); Lipase 115 U/L (23-300); Potassium 3.8 mmol/L (3.4-5.0); Sodium 139 mmol/L (137-145)
[2021-09-23 07:19] VITALS: BP 116/78; PULSE 62; RESP 13; O2SAT 96
[2021-09-23 07:27] LABS: Troponin I < 0.012 ng/mL (0.000-0.034)
[2021-09-23 07:29] LABS: INR 1.1; Partial Thromboplastin Time 25.4 SECONDS (22.3-36.8); Prothrombin Time 13.3 Seconds (11.1-14.7)
[2021-09-23 08:00] VITALS: BP 106/77; PULSE 60; RESP 16; O2SAT 98
== END 2021-09-23 08:02 | disposition home or self-care (01) ==
PROVIDERS: Emergency Medicine; Emergency Provider Emergency Medicine; PCP Emergency Medicine
DX: I48.0 Paroxysmal atrial fibrillation (principal); Z79.82 Long term (current) use of aspirin; E55.9 Vitamin D deficiency, unspecified; M81.0 Age-related osteoporosis without current pathological fracture; Z87.891 Personal history of nicotine dependence; R94.31 Abnormal electrocardiogram [ECG] [EKG]
CPT/HCPCS: 36415; 80053; 83690; 84484; 85025; 85610; 85730; 93005; 99284

== ENCOUNTER 2022-01-03 12:00 | Outpatient (CLI) | payer OTHER, SELFPAY ==
--- NOTE | ~2022-01-03 | XR_ITS ---
EXAMINATION: XR hand LT min 3V DATE: 01/03/2022 12:31 INDICATION: Pain and numbness at the left hand TECHNIQUE: Posteroanterior, oblique and lateral views of the left hand were obtained. COMPARISON: None. FINDINGS: Bone alignment is normal. No fracture. Polyarticular osteoarthritis, mild to moderate severity at a f ew of the interphalangeal joints with distal predominance. Additional mild osteoarthritis at the left wrist and carpus. No erosions to suggest inflammatory arthritis. Periventricular soft tissue swellin g at the interphalangeal joints. IMPRESSION: 1. Mild to moderate distal interphalangeal joint predominant polyarticular osteoarthritis at the left hand and wrist. Reviewed, dictated and finalized at location A. IMPRESSION: 1. Mild to moderate distal interphalangeal joint predominant polyarticular oste oarthritis at the left hand and wrist.
--- NOTE | ~2022-01-03 | XR_ITS ---
EXAMINATION:XR cervical spine 4-5V DATE: 01/03/2022 12:32 INDICATION: Neck pain TECHNIQUE: AP, lateral, lateral swimmers and odontoid views of the cervical spine are provided. COMPARISON: None FINDINGS: Cervical alignment is normal. Partially visualized mild mid thoracic dextrocurvature. Odontoid is int act. Normal atlantoaxial interval. Vertebral body heights are normal. Mild disc height loss with sma ll endplate osteophytes at C5-C6. Moderate uncovertebral osteoarthritis on the right at C5-C6 with mi ld uncovertebral osteoarthritis on the left and laterally at C3-C4 and C4-C5. Multilevel mild to mode rate cervical facet osteoarthritis with mid to lower cervical predominant. Prevertebral soft tissues are normal. Biapical pleural-parenchymal scarring. IMPRESSION: 1. Mild to moderate cervical spondylosis. Reviewed, dictated and finalized at location A.
== END 2022-01-03 12:01 | disposition home or self-care (01) ==
PROVIDERS: PCP Internal Medicine; Visit Provider Internal Medicine
DX: M79.642 Pain in left hand (principal); M79.641 Pain in right hand; M19.042 Primary osteoarthritis, left hand; M47.812 Spondylosis without myelopathy or radiculopathy, cervical region
CPT/HCPCS: 72050; 73130

== ENCOUNTER 2022-01-12 07:34 | Outpatient (CLI) | payer OTHER, SELFPAY ==
--- NOTE | ~2022-01-12 | MR_ITS ---
EXAMINATION: MR hand LT wo/w con, MR hand RT wo/w con DATE: 01/12/2022 09:40 INDICATION: Bilateral hand pain and swelling. Family members with rheumatoid arthritis. TECHNIQUE: 1. Magnetic resonance imaging (MRI) of the left hand was performed without and with 15 mL Multihance intravenous contrast. Sequences included axial T1-weighted FSE, axial T2-weighted FS FSE, coronal T1- weighted FSE, coronal T2-weighted FS FSE, sagittal T1-weighted FSE and sagittal T2-weighted FS FSE. P recontrast axial T1-weighted FS FSE and post contrast axial, sagittal and coronal T1-weighted FS FSE were also obtained. 2. MRI of the right hands is performed without and with 15 mL MultiHance intravenous contrast utilizi ng the same contrast bolus. Sequences included axial T1-weighted FSE, axial T2-weighted FS FSE, coron al T1-weighted FSE, coronal T2-weighted FS FSE, sagittal T1-weighted FSE and sagittal T2-weighted FS FSE. Precontrast axial T1-weighted FS FSE and post contrast axial, sagittal and coronal T1-weighted F S FSE were also obtained. COMPARISON: 01/03/2022 and 08/30/2021 FINDINGS: Evaluation of the left hand is mildly limited by some magnetic field inhomogeneity resulting in regio ns of poor or absent fat saturation. Alignment is normal at the bilateral hands. No fracture or patho logic marrow replacing process. Relatively symmetric distribution of generally mild polyarticular ost eoarthritis of both hands characterized by mild nonuniform joint space narrowing and marginal osteoph yte formation at multiple bilateral interphalangeal joints with distal interphalangeal joint predomin ance, at the triscaphe and first carpal metacarpal joints and to lesser extent at a few metacarpophal angeal joints. Moderate osteoarthritis with slightly more prominent radial side predominant joint spa ce narrowing at the right second distal interphalangeal joint with associated subarticular edema and enhancement at the radial side of the base of the distal phalanx. At the right hand there were a few small enhancing erosions. These include at the palmar/ulnar aspect of both the proximal and distal poles of the right scaphoid. At the radial aspect of the head of the fourth metacarpal. Mild enhancing synovitis at the third proximal interphalangeal joint with enhanci ng erosions at the radial aspect of the base of the third middle phalanx and the adjacent radial head of the third proximal phalanx. Mild thickening, increased fluid signal and mild enhancement involvin g the radial collateral ligament complex at the second and third and to a lesser degree the fourth an d fifth metacarpophalangeal joints. Mild thickening and increased fluid signal without significant en hancement at the radial collateral ligament complex at the second proximal interphalangeal joint and both the radial and ulnar collateral ligament complex at the third proximal interphalangeal joint. Th e flexor and extensor tendons are normal. At the left hand there is similar thickening, mild increased fluid signal and enhancement at the radi al collateral ligament complex at the second-fourth metacarpophalangeal joints. Small T2 hyperintense enhancing erosion at the dorsal base of the left third middle phalanx. Additional possible chronic e rosion with thin signal intensity sclerotic margins identified in the region of the fovea the ulna wh ich is only included on the axial T1 and T2-weighted images. Small amount of fluid without enhancing synovitis along the flexor tendon sheaths the fifth digit. The flexor and extensor tendons are normal . IMPRESSION: 1. Polyarticular osteoarthritis with typical distribution at the bilateral hands, moderate severity a t the right second distal interphalangeal joint and otherwise mild at the remaining interphalangeal j oints, the radial aspect of the carpi and several metacarpophalangeal joints. 2. A few enhancing erosions in the bilateral hands as well as
== END 2022-01-12 07:35 | disposition home or self-care (01) ==
LOC: ANHIMG 07:36
PROVIDERS: PCP Internal Medicine; Visit Provider Internal Medicine
DX: E55.9 Vitamin D deficiency, unspecified (principal); G25.81 Restless legs syndrome; M81.0 Age-related osteoporosis without current pathological fracture; R76.8 Other specified abnormal immunological findings in serum; Z71.89 Other specified counseling; Z79.899 Other long term (current) drug therapy; M19.041 Primary osteoarthritis, right hand; M19.042 Primary osteoarthritis, left hand
CPT/HCPCS: 73220; A9577

== ENCOUNTER 2022-04-23 23:16 | Emergency (ER) | payer OTHER, SELFPAY ==
[2022-04-23 23:16] VITALS: BP 150/79; PULSE 84; RESP 18; TEMP 36.2; O2SAT 96
[2022-04-23 23:34] LABS: Appearance Urine Clear (Clear); Bilirubin Urine Negative (Negative); Glucose Urine UA Negative (Negative); Ketones Urine Negative (Negative); Leukocyte Esterase Ur 1+ LEU/UL (Negative); Nitrate Urine Negative (Negative); Protein Urine Negative (Negative); Urobilinogen Urine 0.2 mg/dL (0.2-1.0); pH Urine 7.5 (5.0-8.0)
--- NOTE | 2022-04-23 23:35 | ED.FEMALEGU ---
HPI - Female Genitourinary General Chief complaint: Urogenital-Female Stated complaint: Possible uti History of Present Illness HPI Narrative: Pt presents with urinary frequency, dysuria today. Pt feels nauseated and vomited once. Pt has AJ but denies fever or chills or back pain. Pt has a little pressure sensation over her bladder but otherwise has no pain. Related Data Home Medications Medication Instructions Recorded Confirmed famotidine 20 mg tablet (Pepcid) 20 mg PO DAILY 06/27/21 04/23/22 flecainide 50 mg tablet 50 mg PO Q12H 06/27/21 04/23/22 aspirin 81 mg capsule ([place]) 81 mg PO DAILY 08/21/21 04/23/22 metoprolol succinate 25 mg 25 mg PO DAILY 08/21/21 04/23/22 tablet,extended release 24 hr (Toprol XL) Allergies Allergy/AdvReac Type Severity Reaction Status Date / Time codeine Allergy Unknown Hives Verified 04/23/22 23:18 amoxicillin [From Augmentin] Allergy Unknown Verified 04/23/22 23:18 clavulanic acid Allergy Unknown Verified 04/23/22 23:18 [From Augmentin] Review of Systems Review of Systems: All systems reviewed & are unremarkable except as noted in HPI and below PMFSH Past Medical History Medical History Age related osteoporosis Chronic a-fib Closed fracture of left tibial plateau Closed nondisp fx of lateral condyle of left tibia w/delayed healing Encounter for screening for other viral diseases Lumbar radiculopathy, acute Personal history of other malignant neoplasm of skin Positive SARAH (antinuclear antibody) Seronegative erosive rheumatoid arthritis Vitamin D deficiency Surgical History Surgical History H/O: hysterectomy History of appendectomy History of section, classical x2 Family History Family History Mother Diabetes mellitus Family history of cardiovascular disease Hypertension Cerebrovascular accident Heart disease Thyroid condition Father Hypertension Sibling Diabetes mellitus Thyroid condition Other Family history of malignant neoplasm Social History Social History Social History: the patient has 2 children. She lives with her fianc? who is the durable power employment law attorney for healthcare. she desires to be a full code. She is . 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 The patient does not use any alcohol, marijuana, or illicit drugs. She quit smoking about tended 20 years ago. Years smoked: 5 Smoking status: Never smoker Tobacco type: cigarettes Alcohol intake: never Substance use: never Gender identity (if verbalized by the patient): Female Sexual Orientation (if Verbalized by the Patient): Straight or Heterosexual Spiritual care concerns: No Exam Const: General: healthy appearing Nutritional Appearance: well nourished Orientation/consciousness: patient oriented x3 Limitations: no limitations HENMT: Mouth: Yes Normal oral and palatal mucosa present Eyes: Conjunctivae: conjunctivae normal EOM: EOMs intact bilaterally Neck: Neck: normal visual inspection Resp: Effort & Inspection: normal respiratory effort Auscultation: clear to auscultation bilaterally Cardio: Rate: regular rate Rhythm: regular rhythm GI: GI Palp: Yes Soft to palpation Auscultation: normal bowel sounds Back/Spine/Pelvis: Back: no CVA tenderness Skin: General skin exam: normal color Rashes: no rashes Neuro: General: patient oriented x3, moves all extremities, no meningeal signs and no focal motor deficits Speech: normal speech Extrem: General: normal to inspection and no clubbing, cyanosis or edema Psych: Appearance: grossly normal Mental Status: mental status grossly normal Affect: normal affect Attitude: cooperative Course Vital Signs Vital signs: Vital Signs Temperature 97.1 F L
[2022-04-23] MEDS: ONDANSETRON HCL ODT 4 MG TABLET PO (23:36)
[2022-04-23] MEDS: KETOROLAC 30 MG/ML VIAL (*BKC) IM (23:37)
[2022-04-23 23:39] LABS: Add Urine Microscopic? YES; Bacteria Urine Trace /hpf; Blood Urine Trace-Intact (Negative); Color Urine Light Yellow (Yellow); RBC Urine 0-2 /hpf (0-2); Squamous Epithelial Cell Urine Rare /hpf (Few)
[2022-04-24] MEDS: cefTRIAXone 1 GM, LIDOCAINE HCL 1% LOCAL INJ 2.1 ML IM (00:02)
[2022-04-24 00:05] VITALS: BP 147/88; PULSE 81; RESP 18; TEMP 36.8; O2SAT 96
== END 2022-04-24 00:11 | disposition home or self-care (01) ==
PROVIDERS: Emergency Provider Emergency Medicine; PCP Internal Medicine
DX: N39.0 Urinary tract infection, site not specified (principal)
CPT/HCPCS: 81001; 87086; 96372; 99284; A9270; J0696; J1885

== ENCOUNTER → 2022-04-30 10:14 | Outpatient (CLI) | payer OTHER, SELFPAY ==
--- NOTE | ~2022-04-30 | XR_ITS ---
XR chest 2V 04/30/2022 10:32 Indication: Wheezing. Cough. Procedure: 2 view chest Comparison: Comparison to multiple prior studies sequentially, with oldest reviewed study dated 12/17. Findings: Heart size normal. Chronic apical pleural thickening/scarring. The lungs are hyperinflated which is consistent with, but not diagnostic of chronic obstructive pulmonary disease. There are fair ly B lines bilaterally in the lower lungs which may represent mild chronic interstitial edema. Impression: 1: Possible mild chronic interstitial edema. Reviewed, dictated and finalized at location A. ISTICS TEACHER Impression: 1: Possible mild chronic interstitial edema.
== END ==
PROVIDERS: PCP Clinical Nurse Specialist; Visit Provider Clinical Nurse Specialist
DX: R50.9 Fever, unspecified (principal); R06.02 Shortness of breath; R06.2 Wheezing; R91.8 Other nonspecific abnormal finding of lung field
CPT/HCPCS: 71046

== ENCOUNTER 2022-05-02 08:59 | Outpatient (CLI) | payer OTHER, SELFPAY ==
[2022-05-02 09:38] LABS: Hematocrit 36.5 % (37.0-47.0); Hemoglobin 11.7 g/dL (12.0-15.0); Mean Corpuscular HGB Conc 32.1 g/dl (32-36); Mean Corpuscular Hemoglobin 29.9 pg (26-34); Mean Corpuscular Volume 93.4 fl (80-100); Mean Platelet Volume 9.6 fl (7.4-10.4); Platelet Count Result 241 k/mm3 (150-375); Red Blood Count 3.91 M/mm3 (4.2-5.4); Red Cell Distribution Width 14.2 % (11.5-14.5); White Blood Count 5.6 K/mm3 (4.5-10.0)
[2022-05-02 09:39] LABS: Appearance Urine Clear (Clear); Bilirubin Urine Negative (Negative); Blood Urine Trace-intact (Negative); Color Urine Yellow (Yellow); Glucose Urine UA Negative (Negative); Ketones Urine Negative (Negative); Leukocyte Esterase Ur Negative LEU/UL (Negative); Nitrate Urine Negative (Negative); Protein Urine Negative (Negative); Urobilinogen Urine 0.2 mg/dL (<2.0)
[2022-05-02 09:45] LABS: Mucus Urine Rare /lpf; RBC Urine 0-2 /hpf (0-2); Squamous Epithelial Cell Urine Rare /hpf (Few); WBC Urine 0-3 /hpf
[2022-05-02 09:51] LABS: Alanine Aminotransferase 23 U/L (6-35); Albumin Level 4.4 g/dL (3.5-5.1); Alkaline Phosphatase 71 U/L (38-126); Anion Gap 14 mmol/L (8-16); Aspartate Amino Transferase 23 U/L (14-36); Bilirubin,Total 0.4 mg/dL (0.2-1.3); Blood Urea Nitrogen 10 mg/dL (7-17); Calcium 8.6 mg/dL (8.4-10.2); Carbon Dioxide 27 mmol/L (22-30); Chloride 96 mmol/L (98-107); Estimated Glomerular Filt Rate > 60; Glucose 94 mg/dL (65-110); Potassium 4.2 mmol/L (3.4-5.0); Sodium 137 mmol/L (137-145)
[2022-05-02 09:53] LABS: Add Urine Microscopic? YES
[2022-05-02 13:14] LABS: Erythrocyte Sedimentation Rate 21 mm/hr (0-20)
== END 2022-05-02 09:00 | disposition home or self-care (01) ==
LOC: ANHLAB 09:02
PROVIDERS: PCP Clinical Nurse Specialist; Visit Provider Internal Medicine
DX: M19.90 Unspecified osteoarthritis, unspecified site (principal); M06.00 Rheumatoid arthritis without rheumatoid factor, unspecified site
CPT/HCPCS: 36415; 80053; 81001; 85027; 85652; 86140

== ENCOUNTER 2022-11-18 13:09 | Outpatient (CLI) | payer OTHER, SELFPAY ==
[2022-11-18 13:33] LABS: Hematocrit 37.9 % (37.0-47.0); Hemoglobin 12.1 g/dL (12.0-15.0); Mean Corpuscular HGB Conc 31.9 g/dl (32-36); Mean Corpuscular Hemoglobin 29.3 pg (26-34); Mean Corpuscular Volume 91.8 fl (80-100); Mean Platelet Volume 9.2 fl (7.4-10.4); Platelet Count Result 235 k/mm3 (150-375); Red Blood Count 4.13 M/mm3 (4.2-5.4); Red Cell Distribution Width 13.4 % (11.5-14.5); White Blood Count 5.6 K/mm3 (4.5-10.0)
[2022-11-18 13:46] LABS: Alanine Aminotransferase 30 U/L (6-35); Albumin Level 4.5 g/dL (3.5-5.1); Alkaline Phosphatase 83 U/L (38-126); Anion Gap 6 mmol/L (8-16); Aspartate Amino Transferase 31 U/L (14-36); Bilirubin,Total 0.3 mg/dL (0.2-1.3); Blood Urea Nitrogen 14 mg/dL (7-17); CRP 0.7 mg/dL (<1.0); Calcium 8.9 mg/dL (8.4-10.2); Carbon Dioxide 28 mmol/L (22-30); Chloride 103 mmol/L (98-107); Estimated Glomerular Filt Rate 56; Glucose 76 mg/dL (65-110); Potassium 4.2 mmol/L (3.4-5.0); Sodium 137 mmol/L (137-145)
[2022-11-18 13:51] LABS: Appearance Urine Clear (Clear); Bacteria Urine None Seen /hpf; Bilirubin Urine Negative (Negative); Blood Urine Negative (Negative); Color Urine Yellow (Yellow); Glucose Urine UA Negative (Negative); Ketones Urine Negative (Negative); Leukocyte Esterase Ur 1+ LEU/UL (Negative); Need Manual Microscopic Reviewed; Nitrate Urine Negative (Negative); Non Pathogenic Casts 0-2; Protein Urine Negative (Negative); Specific Grav Ur 1.021 (1.001-1.035); Squamous Epithelial Cell Urine None seen /hpf (Few); Urobilinogen Urine 0.2 mg/dL (<2.0); WBC Urine 0-5 /hpf; pH Urine 5.5 (5.0-9.0)
[2022-11-18 14:05] LABS: Add Urine Microscopic? YES
[2022-11-18 14:34] LABS: Erythrocyte Sedimentation Rate 16 mm/hr (0-20)
== END 2022-11-18 13:10 | disposition home or self-care (01) ==
LOC: ANHLAB 13:10
PROVIDERS: PCP Clinical Nurse Specialist; Visit Provider Internal Medicine
DX: M06.00 Rheumatoid arthritis without rheumatoid factor, unspecified site (principal); M19.90 Unspecified osteoarthritis, unspecified site
CPT/HCPCS: 36415; 80053; 81001; 85027; 85652; 86140

== ENCOUNTER 2023-01-01 11:23 | Outpatient (CLI) | payer OTHER, SELFPAY ==
--- NOTE | ~2023-01-01 | XR_ITS ---
Right ankle Technique: AP and lateral views were obtained. Clinical History: Pain Findings: No acute fracture or dislocation is seen. Osseous alignment is anatomic. Ankle mortise and other visualized joint spaces are preserved. Soft tissues are otherwise unremarkable. Impression: Unremarkable right ankle. Reviewed, dictated and finalized at location . Impression: Unremarkable right ankle.
--- NOTE | ~2023-01-01 | US_ITS ---
EXAMINATION: US venous doppler LE RT DATE: 01/01/2023 12:10 INDICATION: Right lower limb pain. TECHNIQUE: Grayscale ultrasound images without and with compression and Doppler ultrasound images of the right lower extremity veins were obtained. COMPARISON: None. FINDINGS: The visualized portions of right common femoral vein, profunda (deep) femoral vein, femoral vein, pop liteal vein, peroneal veins, posterior tibial veins, and greater saphenous vein outflow are patent. IMPRESSION: 1. No deep venous thrombosis. Reviewed, dictated and finalized at location B.
== END 2023-01-01 11:24 | disposition home or self-care (01) ==
PROVIDERS: PCP Internal Medicine; Visit Provider Clinical Nurse Specialist
DX: M25.571 Pain in right ankle and joints of right foot (principal); M79.604 Pain in right leg; M79.89 Other specified soft tissue disorders
CPT/HCPCS: 73600; 93971

== ENCOUNTER 2023-02-22 09:14 | Outpatient (CLI) | payer OTHER, SELFPAY ==
[2023-02-22 09:31] LABS: Basophils Absolute Auto 0.1 K/mm3 (0.0-0.1); Basophils Percent Auto 1.2 % (0.2-1.2); Eosinophils Absolute Auto 0.1 K/mm3 (0-0.3); Eosinophils Percent Auto 3.3 % (0-4.4); Hematocrit 37.9 % (37.0-47.0); Hemoglobin 12.2 g/dL (12.0-15.0); Immature Granulocyte Absolute 0.01 K/mm3 (0.00-0.031); Immature Granulocyte Percent A 0.2 % (0-0.5); Lymphocytes Absolute Auto 1.49 K/mm3 (0.9-3.2); Lymphocytes Percent Auto 35.4 % (18.3-44.2); Mean Corpuscular HGB Conc 32.2 g/dl (32-36); Mean Corpuscular Hemoglobin 29.9 pg (26-34); Mean Corpuscular Volume 92.9 fl (80-100); Mean Platelet Volume 9.4 fl (7.4-10.4); Monocytes Absolute Auto 0.4 K/mm3 (0.1-0.6); Monocytes Percent Auto 9.3 % (2.6-8.5); Neutrophils Absolute Auto 2.1 K/mm3 (1.3-6.7); Neutrophils Percent Auto 50.6 % (45.5-73.1); Platelet Count Result 192 k/mm3 (150-375); Red Blood Count 4.08 M/mm3 (4.2-5.4); Red Cell Distribution Width 13.8 % (11.5-14.5); White Blood Count 4.2 K/mm3 (4.5-10.0)
[2023-02-22 09:33] LABS: Appearance Urine Clear (Clear); Bilirubin Urine Negative (Negative); Blood Urine Negative (Negative); Color Urine Yellow (Yellow); Glucose Urine UA Negative (Negative); Ketones Urine Negative (Negative); Leukocyte Esterase Ur Negative LEU/UL (Negative); Nitrate Urine Negative (Negative); Protein Urine Negative (Negative); Specific Grav Ur 1.009 (1.001-1.035); Urobilinogen Urine 0.2 mg/dL (<2.0); pH Urine 7.5 (5.0-9.0)
[2023-02-22 09:37] LABS: Alanine Aminotransferase 22 U/L (6-35); Albumin Level 4.2 g/dL (3.5-5.1); Alkaline Phosphatase 68 U/L (38-126); Anion Gap 6 mmol/L (8-16); Aspartate Amino Transferase 27 U/L (14-36); Bilirubin,Total 0.5 mg/dL (0.2-1.3); Blood Urea Nitrogen 15 mg/dL (7-17); CRP 0.5 mg/dL (<1.0); Calcium 9.1 mg/dL (8.4-10.2); Carbon Dioxide 29 mmol/L (22-30); Chloride 104 mmol/L (98-107); Estimated Glomerular Filt Rate 56; Glucose 104 mg/dL (65-110); Potassium 4.5 mmol/L (3.4-5.0); Sodium 139 mmol/L (137-145)
[2023-02-22 09:57] LABS: Add Urine Microscopic? NO
[2023-02-22 10:15] LABS: Erythrocyte Sedimentation Rate 15 mm/hr (0-20)
== END 2023-02-22 09:15 | disposition home or self-care (01) ==
PROVIDERS: PCP Internal Medicine; Visit Provider Internal Medicine
DX: M06.00 Rheumatoid arthritis without rheumatoid factor, unspecified site (principal); M19.90 Unspecified osteoarthritis, unspecified site; Z79.899 Other long term (current) drug therapy
CPT/HCPCS: 36415; 80053; 81003; 85025; 85652; 86140

== ENCOUNTER 2023-05-16 09:43 | Outpatient (CLI) | payer OTHER, SELFPAY ==
[2023-05-16 10:49] LABS: Appearance Urine Clear (Clear); Bacteria Urine None Seen /hpf; Bilirubin Urine Negative (Negative); Blood Urine Negative (Negative); Color Urine Yellow (Yellow); Glucose Urine UA Negative (Negative); Ketones Urine Trace mg/dL (Negative); Leukocyte Esterase Ur 1+ LEU/UL (Negative); Nitrate Urine Negative (Negative); Non Pathogenic Casts 0-2; Protein Urine Negative (Negative); Specific Grav Ur 1.022 (1.001-1.035); Squamous Epithelial Cell Urine None seen /hpf (Few); Urobilinogen Urine 0.2 mg/dL (<2.0)
[2023-05-16 10:57] LABS: Add Urine Microscopic? YES
[2023-05-16 11:08] LABS: Hematocrit 40.3 % (37.0-47.0); Hemoglobin 12.9 g/dL (12.0-15.0); Mean Corpuscular Hemoglobin 29.3 pg (26-34); Mean Corpuscular Volume 91.6 fl (80-100); Mean Platelet Volume 9.2 fl (7.4-10.4); Platelet Count Result 250 k/mm3 (150-375); Red Cell Distribution Width 13.3 % (11.5-14.5); White Blood Count 4.8 K/mm3 (4.5-10.0)
[2023-05-16 11:34] LABS: Alanine Aminotransferase 22 U/L (6-35); Albumin Level 4.7 g/dL (3.5-5.1); Alkaline Phosphatase 85 U/L (38-126); Anion Gap 9 mmol/L (8-16); Aspartate Amino Transferase 28 U/L (14-36); Bilirubin,Total 0.5 mg/dL (0.2-1.3); Blood Urea Nitrogen 17 mg/dL (7-17); CRP < 0.5 mg/dL (<1.0); Calcium 9.3 mg/dL (8.4-10.2); Carbon Dioxide 27 mmol/L (22-30); Chloride 103 mmol/L (98-107); Estimated Glomerular Filt Rate > 60; Glucose 96 mg/dL (65-110); Potassium 4.2 mmol/L (3.4-5.0); Sodium 139 mmol/L (137-145)
[2023-05-16 11:59] LABS: Erythrocyte Sedimentation Rate 15 mm/hr (0-20)
== END 2023-05-16 09:44 | disposition home or self-care (01) ==
LOC: ANHLAB 09:44
PROVIDERS: PCP Internal Medicine; Visit Provider Internal Medicine
DX: M06.00 Rheumatoid arthritis without rheumatoid factor, unspecified site (principal); M19.90 Unspecified osteoarthritis, unspecified site
CPT/HCPCS: 36415; 80053; 81001; 85027; 85652; 86140; 87086; 87088

== ENCOUNTER 2024-04-27 09:54 | Emergency (ER) | payer OTHER, SELFPAY ==
[2024-04-27 10:03] VITALS: BP 136/77; PULSE 74; RESP 20; TEMP 36.4; O2SAT 98
--- NOTE | 2024-04-27 10:03 | ED_ITS ---
HPI - Female Genitourinary General Chief complaint: Urogenital-Female Stated complaint: FEVER/CHILLS/FREQUENT URINATION Source: patient, RN notes reviewed and old records reviewed Mode of arrival: ambulatory Limitations: no limitations History of Present Illness HPI Narrative: 63 year old female who presents to [facility] care with complaints of frequent urination some lower abdominal discomfort in not feeling like she is emptying her bladder since Friday. Patient states last night during the night she had chills but did not check her temperature, has been taking Tylenol for her symptoms. Patient reports no visible blood in the urine or when wiping denies any CVA tenderness. Patient reports history of previous urinary tract infections. Patient reports no nausea. vomiting or any diarrhea. MD elicited complaint: UTI Pertinent past history: other (UTI) Onset (ago): day(s) (3) Location of symptoms: suprapubic and urethra Severity: moderate Vaginal discharge: none Vaginal bleeding: none Urinary symptoms: Frequency (doesn't feel like she is empyting her bladder) Treatment prior to arrival: acetaminophen Related Data Home Medications Medication Instructions Recorded Confirmed flecainide 50 mg tablet 50 mg PO Q12H 06/27/21 01/26/24 aspirin 81 mg capsule (Vazalore) 81 mg PO DAILY 08/21/21 01/26/24 metoprolol succinate 25 mg 25 mg PO DAILY 08/21/21 01/26/24 tablet,extended release 24 hr (Toprol XL) Allergies Allergy/AdvReac Type Severity Reaction Status Date / Time codeine Allergy Unknown Hives Verified 04/27/24 10:17 amoxicillin [From Augmentin] Allergy Unknown Verified 04/27/24 10:17 clavulanic acid Allergy Unknown Verified 04/27/24 10:17 [From Augmentin] Review of Systems Review of Systems: CONSTITUTIONAL: Denies fever,positive chills, or sweats. CARDIOVASCULAR: Denies chest pain, palpitations, or edema. RESPIRATORY: Denies cough or dyspnea. GASTROINTESTINAL: suprapubic abdominal pressure, no nausea, vomiting, or diarrhea. GENITOURINARY: Reports dysuria, frequency, urgency. Denies flank pain or hematuria. SKIN: Denies rash or itching. MUSCULOSKELETAL: Denies back pain or myalgia. Denies CVA tenderness NEUROLOGIC: Denies headache All systems reviewed & are unremarkable except as noted in HPI and below PMFSH Past Medical History Medical History Age related osteoporosis Atrial fibrillation with rapid ventricular response Bilateral hand pain Chronic a-fib Chronic UTI Closed fracture of left tibial plateau Closed nondisp fx of lateral condyle of left tibia w/delayed healing Cold sore Counseling on health promotion and disease prevention Encounter for medication management Encounter for screening for other viral diseases Establishing care with new doctor, encounter for Fever of unknown origin (FUO) Lumbar radiculopathy, acute Patient denies medical problems Personal history of other malignant neoplasm of skin Positive SARAH (antinuclear antibody) Pyelonephritis Restless leg syndrome Screening for breast cancer Seronegative erosive rheumatoid arthritis Shortness of Breath Skin exam, screening for cancer Urinary tract infection UTI (urinary tract infection) Vitamin D deficiency Wheezing Surgical History Surgical History H/O: hysterectomy History of appendectomy History of section, classical x2 Family History Family History Mother Diabetes mellitus Family history of cardiovascular disease Hypertension Cerebrovascular accident Heart disease Thyroid condition Father Hypertension Sibling Diabetes mellitus Thyroid condition Other Family history of malignant neoplasm Social History Social History Social History: the patient has 2 children. She lives with her fijorden who is the durable power deputy commonwealth's attorney for healthcare. she desires to be a full code. She is . 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 The patient does not use any alcohol, marijuana, or illicit drugs. She quit smoking about tended 20 years ago. Caffeine-coffee Years smoked: 5 Smoking status: Never smoker Tobacco type: cigarettes Alcohol intake: never Substance use: never Do You Feel Safe in your Home?: Yes Lack of Transportation: No Lack of Food: Never True Current Housing: I Have Housing Concerned About Future Housing: No Difficulty Paying Gas/Electric Bills: No Difficulty Paying for Meds: No Currently Unemployed: No Education: High School Diploma/GED Difficulty w/ Childcare or Family Care: No Gender identity (if verbalized by the patient): Female Sexual Orientation (if Verbalized by the Patient): Straight or Heterosexual Spiritual care concerns: No Comments At time of signature, agree with nursing past medical, surgical, social and family history. There is no relevant family history pertinent to the presenting complaint Exam Narrative: GENERAL: Well-appearing, well-nourished, and in no acute distress. HEAD: Normocephalic, atraumatic. NECK: Supple. CHEST: Clear to auscultation. No respiratory distress.SAO2 98% on room air HEART: Regular rate and rhythm. No murmur heard. Normal peripheral pulses. ABDOMEN: Soft, supra pubic tenderness, nondistended, normal active bowel sounds. No CVA tenderness reports urinary frequency with some urgency and discomfort. EXTREMITIES: Normal range of motion. No edema. SKIN: Warm, dry, no rash. NEURO: No focal deficits. Alert and oriented x3. Course Course Emergency Course: Patient is aware of diagnosis, understands and agrees to treatment plan.? Anticipatory guidance given.? Patient agrees to follow-up as directed and is aware of reasons to seek care at the emergency department. Portions of this record may have been created with voice recognition software Level of Care: Express Care Visit Vital Signs Vital signs: Vital Signs Temperature 36.4 C 04/27/24 10:03 Pulse Rate 74 04/27/24 10:03 Respiratory Rate 20 04/27/24 10:03 Blood Pressure 136/77 04/27/24 10:03 Pulse Oximetry 98 04/27/24 10:03 Oxygen Delivery Room Air 04/27/24 10:03 Temperature 36.4 C 04/27/24 10:03 Pulse Rate 74 04/27/24 10:03 Respiratory Rate 20 04/27/24 10:03 Blood Pressure 136/77 04/27/24 10:03 Pulse Oximetry 98 04/27/24 10:03 Oxygen Delivery Room Air 04/27/24 10:03 MDM - Female Genitourinary MDM Narrative Medical decision making narrative: Exam findings and UA show no acute concerns or changes; patient is non-toxic appearing and is in no distress.? Patient is appropriate for outpatient treatment and follow-up. Differential Diagnosis Differential diagnosis: Likely urinary tract infection, cystitis and other (dysuria) Medical Records Attestation: I reviewed the patient's medical records. Lab Data Attestation: I reviewed the patient's lab results. Lab results narrative: urine dip glucose negative, bilirubin negative, ketone negative, specific gravity 1.010, blood 2+ pH 6.5, protein negative urobilinogen 0.2, nitrate negative, leukocyte 3+ urine cloudy yellow Critical Care Time Critical Care Time Critical Care Time: No Discharge Plan Discharge Clinical Impression: Acute UTI Patient Disposition: Home, Self-Care Condition: Stable Instructions: Antibiotic Form, Urinary Tract Infection in Women (ED) Additional Instructions: Increase fluids especially cranberry juice and water Avoid caffeine and carbonated beverages Antibiotic as directed Medicine as directed--cautioned it will cause your urine to be bright orange Tylenol/ibuprofen for pain or fever Follow-up with her primary care provider if further problems or concerns Recheck if you have fever over 101, nausea and vomiting. If your symptoms persist, change or worsen significantly before you can contact your personal physician then please, without delay, go to the emergency department for further evaluation. Follow-up with PCP in 7-10 days or sooner if needed Follow up with PCP soon in regards to your blood pressure which is elevated above threshold for referral. Blood pressure above 120/80 may indicate pre- hypertension. 136/77 minimal elevation Prescriptions: New cefuroxime axetil 500 mg tablet 500 mg PO Q12H Qty: 20 0RF phenazopyridine [Pyridium] 200 mg tablet 200 mg PO TID PRN (Reason: pain) Qty: 6 0RF No Action metoprolol succinate [Toprol XL] 25 mg tablet extended release 24 hr 25 mg PO DAILY Vazalore 81 mg capsule 81 mg PO DAILY flecainide 50 mg tablet 50 mg PO Q12H hydroxychloroquine [Plaquenil] 200 mg tablet 400 mg PO DAILY Qty: 180 1RF oxybutynin chloride 5 mg tablet extended release 24hr 5 mg PO DAILY Qty: 90 1RF Follow-up/Referrals: Melquiades Cuba DO [Primary Care Provider] -
[2024-04-27 10:15] LABS: EDUAAPPEAR Cloudy; EDUABILI Negative (Negative); EDUABLOOD 2+ (Negative); EDUACOLOR1 Yellow; EDUAGLUCOSE Negative (Negative); EDUAKETONE Negative (Negative); EDUALEUKO 3+ (Negative); EDUANITRATE Negative (Negative); EDUAPH 6.5; EDUAPROTEIN Negative (Negative); EDUAUROBILI 0.2
== END 2024-04-27 10:22 | disposition home or self-care (01) ==
PROVIDERS: Emergency Provider Registered Nurse; PCP Internal Medicine
DX: N39.0 Urinary tract infection, site not specified (principal); I48.91 Unspecified atrial fibrillation
CPT/HCPCS: 81003; 87077; 87086; 87186; 99213; G0463

== ENCOUNTER 2024-08-25 09:41 | Outpatient (CLI) | payer OTHER, SELFPAY ==
--- NOTE | ~2024-08-25 | XR_ITS ---
XR hand LT 2V Ordering provider: Mayco Patel MD History: . MULTIPLE JOINT PAIN . Comparison: None. FINDINGS: BONES: No acute fracture or dislocation. JOINT SPACES: Narrowing of the proximal and distal interphalangeal joints. Marginal osteophytes are s een in multiple joints. Subarticular cystic changes are also seen Mild osteoarthritic changes in the first carpometacarpal joint. SOFT TISSUES: Unremarkable. IMPRESSION: No acute osseous abnormality left hand. Polyarticular osteoarthritic changes. Reviewed, dictated and finalized at location A.
--- NOTE | ~2024-08-25 | XR_ITS ---
XR hip LT min 2V Ordering provider: Mayco Patel MD History: . MULTIPLE JOINT PAIN . Comparison: None. FINDINGS: BONES: No acute fracture or dislocation. HIP JOINT SPACES: Slight narrowing of the joint space medially which may indicate mild osteoarthritic changes. PUBIC SYMPHYSIS: Normal. SOFT TISSUES: Normal. IMPRESSION: No acute osseous abnormality pelvis and left hip. Mild left hip osteoarthritic changes. Reviewed, dictated and finalized at location A.
--- NOTE | ~2024-08-25 | XR_ITS ---
XR_KNEE1-2VRT_CR Ordering provider: Mayco Patel MD History: . MULTIPLE JOINT PAIN . Comparison: None. FINDINGS: BONES: No acute fracture or dislocation. JOINT SPACES: Slight narrowing of the medial compartment. SOFT TISSUES: Normal. IMPRESSION: No acute osseous abnormality right knee. Mild osteoarthritic changes. Reviewed, dictated and finalized at location A.
--- NOTE | ~2024-08-25 | XR_ITS ---
XR elbow LT 2V Ordering provider: Mayco Patel MD History: . MULTIPLE JOINT PAIN . Comparison: None. FINDINGS: BONES: No acute fracture or dislocation. JOINT SPACES: Mild osteoarthritic changes with marginal osteophytes seen in the ulna. SOFT TISSUES: Normal. No definite joint effusion. IMPRESSION: No acute osseous abnormality left elbow. Mild osteoarthritic changes. Reviewed, dictated and finalized at location A.
--- NOTE | ~2024-08-25 | XR_ITS ---
XR hand RT 2V Ordering provider: Mayco Patel MD History: . MULTIPLE JOINT PAIN . Comparison: None. FINDINGS: BONES: No acute fracture or dislocation. JOINT SPACES: Narrowing of the proximal and distal interphalangeal joints with marginal osteophytes.. Subchondral cystic area seen in the proximal interphalangeal joint of the middle finger. SOFT TISSUES: Normal. IMPRESSION: No acute osseous abnormality right hand. Polyarticular osteoarthritic changes. Reviewed, dictated and finalized at location A.
--- NOTE | ~2024-08-25 | XR_ITS ---
XR foot LT 2V Ordering provider: Mayco Patel MD History: . MULTIPLE JOINT PAIN . Comparison: None. FINDINGS: BONES: No acute fracture or dislocation. JOINT SPACES: Narrowing of the proximal and distal interphalangeal joints. No tarsal coalition. SOFT TISSUES: Normal. IMPRESSION: No acute osseous abnormality left foot. Polyarticular osteoarthritic changes. Reviewed, dictated and finalized at location A.
--- NOTE | ~2024-08-25 | XR_ITS ---
XR hip RT min 2V Ordering provider: Mayco Patel MD History: . MULTIPLE JOINT PAIN . Comparison: None. FINDINGS: BONES: No acute fracture or dislocation. HIP JOINT SPACES: Narrowing of the medial compartment of the right hip joint suggestive of mild osteo arthritic changes. PUBIC SYMPHYSIS: Normal. SOFT TISSUES: Normal. IMPRESSION: No acute osseous abnormality pelvis and right hip. Mild osteoarthritic changes. Reviewed, dictated and finalized at location A.
--- NOTE | ~2024-08-25 | XR_ITS ---
XR ankle LT 2V Ordering provider: Mayco Patel MD History: . MULTIPLE JOINT PAIN . Comparison: None. FINDINGS: BONES: No acute fracture or dislocation. JOINT SPACES: The ankle mortise is normal. SOFT TISSUES: Normal. IMPRESSION: No acute osseous abnormality left ankle. Reviewed, dictated and finalized at location A.
--- NOTE | ~2024-08-25 | XR_ITS ---
XR shoulder LT min 2V Ordering provider: Mayco Patel MD History: . MULTIPLE JOINT PAIN . Comparison: None. FINDINGS: BONES: No acute fracture or dislocation. JOINT SPACES: The acromioclavicular joint shows osteoarthritic changes The glenohumeral joint is norm al. SOFT TISSUES: Normal. IMPRESSION: No acute osseous abnormality left shoulder. Osteoarthritic changes of the acromioclavicular joint. Reviewed, dictated and finalized at location A.
--- NOTE | ~2024-08-25 | XR_ITS ---
XR ankle RT 2V Ordering provider: Mayco Patel MD History: . MULTIPLE JOINT PAIN . Comparison: None. FINDINGS: BONES: No acute fracture or dislocation. JOINT SPACES: Normal. SOFT TISSUES: Normal. Calcaneal spur. IMPRESSION: No acute osseous abnormality of the right ankle. Reviewed, dictated and finalized at location A.
--- NOTE | ~2024-08-25 | XR_ITS ---
XR foot RT 2V Ordering provider: Mayco Patel MD History: . MULTIPLE JOINT PAIN . Comparison: None. FINDINGS: BONES: Healing fracture at the base of the little toe proximal phalanx. JOINT SPACES: Narrowing of the proximal and distal interphalangeal joints. No tarsal coalition. SOFT TISSUES: Soft tissue swelling over the first metacarpal tarsal phalangeal joint. Calcaneal spur. IMPRESSION: Fracture at the base of the proximal phalanx of the little toe. Reviewed, dictated and finalized at location A.
--- NOTE | ~2024-08-25 | XR_ITS ---
XR_[id number]_CR Ordering provider: Mayco Patel MD History: . MULTIPLE JOINT PAIN . Comparison: None. FINDINGS: BONES: No acute fracture or dislocation. JOINT SPACES: Normal. SOFT TISSUES: Normal. IMPRESSION: No acute osseous abnormality left knee. Reviewed, dictated and finalized at location A.
--- NOTE | ~2024-08-25 | XR_ITS ---
XR wrist RT 2V Ordering provider: Mayco Patel MD History: . MULTIPLE JOINT PAIN . Comparison: None. FINDINGS: BONES: No acute fracture or dislocation. No definite scaphoid fracture. Small bony fragment seen carolee r to the ulnar styloid most likely old fracture or nonunited apophysis.. JOINT SPACES: Normal. SOFT TISSUES: Normal. IMPRESSION: No acute osseous abnormality right wrist. Reviewed, dictated and finalized at location A.
--- NOTE | ~2024-08-25 | XR_ITS ---
XR wrist LT 2V Ordering provider: Mayco Patel MD History: . MULTIPLE JOINT PAIN . Comparison: None. FINDINGS: BONES: No acute fracture or dislocation. No definite scaphoid fracture. JOINT SPACES: Well maintained. Cystic area seen at the base of the first metacarpal bone which may be osteoarthritic changes. SOFT TISSUES: Normal. IMPRESSION: No acute osseous abnormality left wrist. Osteoarthritic changes of the first carpometacarpal joint. Reviewed, dictated and finalized at location A.
--- NOTE | ~2024-08-25 | XR_ITS ---
XR elbow RT 2V Ordering provider: Mayco Patel MD History: . MULTIPLE JOINT PAIN . Comparison: None. FINDINGS: BONES: No acute fracture or dislocation. JOINT SPACES: Mild osteoarthritic changes with marginal osteophytes seen in the abdomen. Subarticular cystic changes seen in the distal humerus laterally. SOFT TISSUES: Unremarkable. No definite joint effusion. IMPRESSION: No acute osseous abnormality of the right elbow. Mild osteoarthritic changes. Reviewed, dictated and finalized at location A.
--- NOTE | ~2024-08-25 | XR_ITS ---
XR shoulder RT min 2V Ordering provider: Mayco Patel MD History: . MULTIPLE JOINT PAIN . Comparison: None. FINDINGS: BONES: No acute fracture or dislocation. JOINT SPACES: The acromioclavicular joint shows mild osteoarthritic changes. The glenohumeral joint i s normal. SOFT TISSUES: Normal. IMPRESSION: No acute osseous abnormality right shoulder. Mild osteoarthritic changes of the acromioclavicular joint. Reviewed, dictated and finalized at location A.
--- OUTSIDE RECORDS SUMMARY | 2024-08-25 10:42 | XMS_ITS | Clinical Summary ---
Author Organization [facility] [address] Address [address] [place] [address] Care Team Providers Care Wood Getter Name Role Phone Melquiades Cuba DO Primary Care Provider [phone] Allergies Active Allergy Reactions Criticality Noted Date Comments Amoxicillin Hives Medium 01/26/2021 Amoxicillin-Pot Clavulanate Unknown 01/26/2021 Aspirin Other (See comments),Vomiting Low 01/26/2021 Nose bleed and GI bleed Codeine Hives Medium Medications omeprazole (PriLOSEC) 20 mg capsule Take 1 capsule (20 mg total) by mouth daily 1 Active cholecalciferol (VITAMIN D-3) 25 mcg (1,000 unit) tablet Take 1 tablet (1,000 Units total) by mouth daily Active folic acid (FOLVITE) 1 mg tablet Take 1 tablet (1,000 mcg total) by mouth daily 3 Active aspirin (Vazalore) 81 mg capsule Take 81 mg by mouth daily Active flecainide (TAMBOCOR) 50 mg tabletIndications :Paroxysmal atrial fibrillation (HCC) Take 1 tablet by mouth twice daily 60 tablet 11 4 Active metoprolol XL (TOPROL-XL) 25 mg extended release tablet Take 1 tablet (25 mg total) by mouth daily 30 tablet 7 4 Active Taltz Autoinjector auto-injector INJECT 1 PEN (80 MG) UNDER THE SKIN EVERY 4 WEEKS 4 Active hydrOXYchloroQUIN E (PLAQUENIL) 200 mg tablet TAKE 2 TABLETS (400 MG) BY MOUTH ONCE DAILY 3 07/27/19 Discontinu ed(Therapy completed) Humira Pen 40 mg/0.8 mL pen injector kit 3 07/27/19 Discontinu ed(Therapy completed) Active Problems Problem Noted Date Diagnosed Date Rheumatoid arthritis 07/26/2022 Paroxysmal atrial fibrillation 08/03/2021 Aspirin intolerance 08/03/2021 High risk medication use 08/03/2021 Encounters Date Type Department Care Team Description 07/27/2024 10:00 AM SCIENTIFIC ADVISOR Office Visit [facility] [address] [place] [id number] Louis Morgan MD Paroxysmal atrial fibrillation (HCC) (Primary Dx); Need for lipid screening from Last 3 Months Surgical History Surgery Date Site/Laterality Comments HYSTERECTOMY APPENDECTOMY SECTION Medical History Medical History Date Comments Arrhythmia Atrial fibrillation (HCC) Family History Medical History Relation Name Comments Alzheimer's disease Father Diabetes Mother Heart disease Mother Stroke Mother Relation Name Status Comments Father (Age 78) Mother Alive Social History Tobacco Use Types Packs/Day Years Used Date Smoking Tobacco: Former Cigarettes Q uit: 01/26/1998 Smokeless Tobacco: Never AUDIT-C Answer Date Recorded Q1: How often do you have a drink containing alc ohol? Never 01/26/2021 Average Number of Drinks Not on file 021 Frequency of Binge Drinking Not on file 01/01 Comments Unknown Sex and Gender Information Value Date Recorded Sex Assigned at Not on file Legal Sex Female 9:33 AM SCIENTIFIC ADVISOR Gender Identity Not on file Sexual Orientation Not on file Obstetrics History Last Filed Vital Signs Vital Sign Reading Time Taken Comments Blood Pressure 124/70 07/27/2024 9:51 AM SCIENTIFIC ADVISOR Pulse 59 07/27/2024 9:51 AM SCIENTIFIC ADVISOR Temperature - - Respiratory Rate - - Oxygen Saturation 98% 07/27/2024 9:51 AM SCIENTIFIC ADVISOR Inhaled Oxygen Concentration - - Weight 81.9 kg (180 lb 8 oz) 07/27/2024 9:51 AM SCIENTIFIC ADVISOR Height 172.7 cm (5' 8 ) 07/27/2024 9:51 AM SCIENTIFIC ADVISOR Body Mass Index 27.44 07/27/2024 9:51 AM SCIENTIFIC ADVISOR Plan of Treatment Health Maintenance Due Date Last Done Comments Breast Cancer Screening-Mammogram 1958 Colon Cancer Screening-Colonoscopy 1958 Depression Screening 1958 Fall Risk Assessment 1958 Hepatitis C Screening 1958 Osteoporosis Screening-Bone Density Scan 1958 Hepatitis B Screening 1976 Pneumococcal vaccine 65+ (1 of 2 - PCV) 1977 Zoster Vaccine (1 of 2) 2008 Well Visit 65+ 08/14/2023 Influenza Vaccine (#1) 2024 0, 03/02/2019, 03/08/2018, Additional history exists DTaP/Tdap/Td Vaccine (2 - Td or Tdap) 10/08/2030 10/08/2020 Procedures Procedure Name Priority Date/Time Associated Diagnosis Comments POCT LIPID PANEL Routine 07/27/2024 11:0 4 AM SCIENTIFIC ADVISOR Need for lipid screening from Last 3 Months Results * POCT lipid panel (07/27/2024 11:04 AM SCIENTIFIC ADVISOR) Cholesterol, POC 225 mg/dL HDL, POC 62 mg/dL Triglycerides, POC 148 mg/dL LDL Cholesterol POC 134 mg/dL Chol/HDL Ratio, POC 2.1 Non-HDL Cholesterol, POC 163 mg/dL Cholesterol Total, POC 225 mg/dL Capillary blood 07/27/2024 1 1:04 AM SCIENTIFIC ADVISOR Louis Morgan MD POINT OF CARE TEST ORDER BENJAMIN Final Result from Last 3 Months Insurance [employer] PPO Care Teams Wood Getter Relationship Specialty Start Date End Date Melquiades Cuba DO PCP - General Internal Medicine 04/02/21
--- OUTSIDE RECORDS SUMMARY | 2024-08-25 10:42 | XMS_ITS | Clinical Summary ---
Author Organization [facility] Address [address] [address] Care Team Providers Care Cardiac Specialist Name Role Phone Unavailable Primary Care Provider Unavailabl e Source Comments [facility],non-owned Affiliates and Associated Physician Practices is amultiple site organization consisting of ambulatory clinics and hospital sitesin [place], [place], [place] and [place]. This disclosure is being madepursuant to the Care Everywhere program and may not contain all information available regarding this patient. Last updated 18.[facility] Allergies Active Allergy Reactions Criticality Noted Date Comments Amoxicillin Urticaria Medium 01/26/2021 Amoxicillin-Pot Clavulanate Unknown 01/26/2021 Aspirin Other,Vomiting Low 01/26/2021 Nose bleed and GI bleed Codeine Urticaria Medium 02/09/2024 Tramadol Unknown High 11/20/2015 Medications * Be aware that medications may not be up to date on this document. Alwaysverify current medications with the patient. Medication Sig Dispensed Refills Start Date End Date Status Aspirin (Vazalore) 81 MG CAPS Take 81 mg by mouth once daily Active Cholecalciferol (Vitamin D-[address]) 25 MCG (1000 UT) Take 1 (one) tablet by mouth once daily Active clobetasol (Temovate) 0.05 % cream APPLY TO AFFECTED AREAS OF FEET 1-2 TIMES DAILY FOR UP TO TWO CONSECUTIVE WEEKS. AVOID FACE, AXILLA AND GROIN. 03/30/2024 Active flecainide (Tambocor) 50 MG tablet Take 1 (one) tablet by mouth 2 times daily Active metoprolol succinate XL 24hr (Toprol XL) 25 MG tablet Take 1 (one) tablet by mouth once daily 03/16/2024 Active oxyBUTYnin CR 24hr (Ditropan-XL) 5 MG tablet Take 1 (one) tablet by mouth once daily 11/26/2023 Active triamcinolone acetonide (Kenalog) 0.1 % cream APPLY TWICE DAILY TO AFFECTED AREAS FOR 2 WEEKS, THEN TAKE A ONE WEEK BREAK. IF RASH PERSISTS RESUME CREAM. AVOID APPLICATION TO FACE, AXILLA AND GROIN. 11/24/2023 Active ixekizumab (Taltz) 80 MG/ML auto-injector penIndications:Psori atic arthritis (HCC),Axial spondyloarthritis,[place] psoriasis INJECT 1 PEN (80 MG) UNDER THE SKIN EVERY 4 WEEKS 1 mL 05/31/2024 Active Encounters Date Type Department Care Team Description 07/21/2024 Telephone [facility] - Rheumatology [address] [place] [phone] Santiago Fisher MD Medication Issue; Medication Problem 07/13/2024 [facility] - Rheumatology [address] [place] [phone] Sammie Rojas MD Patient Assistance Program (Taltz) 07/13/2024 Telephone [facility] - Rheumatology [address] [place] [phone] Santiago Fisher MD Med Question 07/06/2024 [facility] - Rheumatology [address] [place] [phone] Santiago Fisher MD Med Question 06/27/2024 [facility] - Rheumatology [address] [place] [phone] Santiago Fisher MD Medication Prior Auth Request 05/29/2024 Refill [facility] - Rheumatology [address] [place] [phone] Santiago Fisher MD Refill Request from Last 3 Months Social History Tobacco Use Types Packs/Day Years Used Date Smoking Tobacco: Former Cigarettes 1 10 0 02/21/2009 - 02/21/2019 Smokeless Tobacco: Never Tobacco Cessation:Counseling Given: Not Answered Alcohol Use Standard Drinks/Week Comments Never 0 (1 standard drink = 0.6 oz pur e alcohol) PHQ-2 Answer Date Recorded Patient Health Questionnaire-2 Score 0 04/12/2024 Sex and Gender Information Value Date Recorded Sex Assigned at Not on file Gender Identity Not on file Sexual Orientation Not on file Last Filed Vital Signs Vital Sign Reading Time Taken Comments Blood Pressure 150/81 04/12/2024 9:31 AM SAMPLE CLERK Pulse 54 04/12/2024 9:31 AM SAMPLE CLERK Temperature 36.6 C (97.8 F) 04/12/2024 9:31 AM SAMPLE CLERK Respiratory Rate - - Oxygen Saturation 97% 04/12/2024 9:31 AM SAMPLE CLERK Inhaled Oxygen Concentration - - Weight 80.3 kg (177 lb) 04/12/2024 9:31 AM SAMPLE CLERK Height 175.3 cm (5' 9 ) 04/12/2024 9:31 AM SAMPLE CLERK Body Mass Index 26.14 04/12/2024 9:31 AM SAMPLE CLERK Plan of Treatment Health Maintenance Due Date Last Done Comments BONE DENSITY TESTING 1958 COLOGUARD (AGES 45-75) - COL ON CA SCREENING 1958 COLON MONITORING 1958 COLONOSCOPY - COLON CA SCREENING 1958 CT COLONOGRAPHY - COLON CA SCREENING 1958 Colorectal Cancer Screening 1958 FIT - COLON CA SCREENING 1958 FLEX SIG - COLON CA SCREENING 1958 LIPID TESTING 1958 MAMMOGRAM 1958 MEDICARE AWV 12 MONTHS 1958 COVID-19 VACCINE (#1) 08/14/1963 DTAP/TDAP/TD VACCINES (1 - Tdap) 1977 PNEUMOCOCCAL VACCINE 50+ (1 of 2 - PCV) 1977 ZOSTER VACCINE (1 of 2) 1977 Respiratory Syncytial Virus (RSV) Vaccine Pt: or over 60 yrs (1 - Risk 60-74 years 1-dose series) 2018 INFLUENZA VACCINE (#1) 2024 DEPRESSION SCREENING 06/02/2024 04/12/2024 SCREENING FOR DIABETES 02/08/2027 02/09/2024 HEPATITIS C SCREENING Completed 02/09/2024 HEPATITIS B VACCINE Aged Out No longe r eligible based on patient's age to complete this topic HIB VACCINE Aged Out No longer eligi ble based on patient's age to complete this topic HPV VACCINE Aged Out No longer eligi ble based on patient's age to complete this topic MENINGOCOCCAL (Group B) VACC INE SHARED DECISION-MAKING Aged Out No longer eligibl e based on patient's age to complete this topic MENINGOCOCCAL GROUPS A/C/Y/W VACCINE Aged Out No longer eligible b ased on patient's age to complete this topic Procedures Procedure Name Priority Date/Time Associated Diagnosis Comments COMPREHENSIVE METABOLIC PANEL Routine 02/09/2024 11:36 AM CDT Psoriatic arthritis Immunosuppression due to drug therapy Need for hepatitis B screening test Need for hepatitis C screening test Therapeutic drug monitoring Screening for tuberculosis Inflammatory polyarthritis HEPATITIS C ANTIBODY Routine 02/09/2024 11:36 AM CDT Psoriatic arthritis Immunosuppression due to drug therapy Need for hepatitis B screening test Need for hepatitis C screening test Therapeutic drug monitoring Screening for tuberculosis Inflammatory polyarthritis from Last 3 Months or Most Recently Relevant to Health Maintenance Results * (ABNORMAL) COMPREHENSIVE METABOLIC PANEL (02/09/2024 11:36 AM CDT) BUN 13 7 - 26 mg/dL 02/09/2024 12:28 PM [facility] Creatinine 0.85 0.56 - 0.96 mg/dL 02/09/2024 12:28 PM [facility] Sodium 139 136 - 145 mmol/L 02/09/2024 12:28 PM [facility] Potassium 4.2 3.5 - 4.5 mmol/L 02/09/2024 12:28 PM [facility] Chloride 109(H) 98 - 107 mmol/L 02/09/2024 12:28 PM [facility] CO2 26 22 - 29 mmol/L 02/09/2024 12:28 PM [facility] Glucose 107 70 - 115 mg/dL 02/09/2024 12:28 PM [facility] Calcium 9.8 8.4 - 10.2 mg/dL 02/09/2024 12:28 PM [facility] Protein Total 7.5 6.0 - 8.3 g/dL 02/09/2024 12:28 PM CDT [facility] Albumin 4.4 3.4 - 5.0 g/dL 02/09/2024 12:28 PM [facility] Bilirubin Total 0.5 0.2 - 1.2 mg/dL 02/09/2024 12:28 PM [facility] Alkaline Phosphatase 89 40 - 150 U/L 02/09/2024 12:28 PM [facility] ALT 11 5 - 55 U/L 02/09/2024 12:28 PM [facility] AST 18 5 - 34 U/L 02/09/2024 12:28 PM [facility] Anion Gap 4(L) 6 - 16 02/09/2024 12:28 PM [facility] BUN/Creatinine Ratio 15 7 - 23 02/09/2024 12:28 PM [facility] Osmolality Calculated 289 275 - 295 mOsm/kg 02/09/2024 12:28 PM [facility] Albumin/Globulin Ratio 1.4 1.1 - 2.3 02/09/2024 12:28 PM [facility] eGFR by CKD-EPI 76(L) >=90 mL/min/1.7 3 m2 02/09/2024 12:28 PM [facility] Blood BLOOD SPECIMEN / Unknown Lab Venipuncture / Unknown 02/09/2024 11:36 AM CDT 02/09/2024 11:59 AM T Santiago Fisher MD LAB - CHEMISTRY RICHARD BAUTISTA [facility] Organization Address City/State/ZIP Co de Phone Number [facility] [address] [place] [phone], [facility] [phone] * HEPATITIS C ANTIBODY (02/09/2024 11:36 AM CDT) Hepatitis C Antibody Non-react ketan Non-reac tijose c 02/09/2024 12:58 PM [facility] Comment:Hepatitis C Antibody screen indicates no serologic evidence of past or current infection with Hepatitis C Virus. Patients with unexplained liver disease who are immunocompromised or suspected of having acute Hepatitis C infection may benefit from Nucleic Acid Test (MICHELLE) for Hepatitis C Viral RNA to confirm Hepatitis C status. Blood BLOOD SPECIMEN / Unknown Lab Venipuncture / Unknown 02/09/2024 11:36 AM CDT 02/09/2024 11:58 AM CDT Santiago Fisher MD LAB - CHEMISTRY RICHARD BAUTISTA [facility] [address] [place] [address], [facility] [phone] from Last 3 Months or Most Recently Relevant to Health Maintenance
--- OUTSIDE RECORDS SUMMARY | 2024-08-25 10:42 | XMS_ITS | Clinical Summary ---
Author Organization [facility] Address [address] [place] [id number] Care Team Providers Care Video Presentation Operator Name Role Phone Unavailable Primary Care Provider Unavailabl e Social History Tobacco Use Types Packs/Day Years Used Date Smoking Tobacco: Never Assessed Sex and Gender Information Value Date Recorded Sex Assigned at Not on file Legal Sex Male 10:46 PM CDT Gender Identity Not on file Sexual Orientation Not on file Plan of Treatment Health Maintenance Due Date Last Done Comments Colorectal Cancer Screening Colonoscopy (10 Years) 1958 Hepatitis C 1976 DTaP, Tdap and Td Vaccines ( 1 - Tdap) 1977 Zoster Vaccines (1 of 2) 2008 Pneumococcal Vaccine: 65+ Ye ars (1 of 1 - PCV) 08/14/2023 COVID-19 Vaccine ( - 2023-2 5 season) 2024 Influenza Adult (#1) 2024 RSV Immunization or 60+ Years (1 - 1-dose 75+ series) 2033 Meningococcal B Vaccine Aged Out No l onger eligible based on patient's age to complete this topic Meningococcal Vaccine Aged Out No dagoberto manny eligible based on patient's age to complete this topic RSV Immunizations Under 20 Months Aged Out No longer eligible based on patient's age to complete this topic
--- OUTSIDE RECORDS SUMMARY | 2024-08-25 10:42 | XMS_ITS | Referral Summary ---
Author Organization [facility] [place] [address] [facility] [address] Address [address] [place] [address] Care Team Providers Care Aeronautical Engineer Name Role Phone Melquiades Cuba DO Primary Care Provider [phone] Encounters Date Type Department Care Team Description 07/27/2024 10:00 AM HIGHER EDUCATION ADMINISTRATOR Office Visit [facility] Card[facility] [address] [facility] [address] [place] [address] Louis Morgan MD Paroxysmal atrial fibrillation (HCC) (Primary Dx); Need for lipid screening from Last 3 Months Allergies Active Allergy Reactions Criticality Noted Date [...] intolerance 08/03/2021 High risk medication use 08/03/2021 Social History Tobacco Use Types Packs/Day Years [...] on file Legal Sex Female 9:33 AM HIGHER EDUCATION ADMINISTRATOR Gender Identity Not on file Sexual Orientation Not on file Last Filed Vital Signs Vital Sign Reading Time Taken Comments Blood Pressure 124/70 07/27/2024 9:51 AM HIGHER EDUCATION ADMINISTRATOR Pulse 59 07/27/2024 9:51 AM HIGHER EDUCATION ADMINISTRATOR Temperature - - Respiratory Rate - - Oxygen Saturation 98% 07/27/2024 9:51 AM HIGHER EDUCATION ADMINISTRATOR Inhaled Oxygen Concentration - - Weight 81.9 kg (180 lb 8 oz) 07/27/2024 9:51 AM HIGHER EDUCATION ADMINISTRATOR Height 172.7 cm (5' 8 ) 07/27/2024 9:51 AM HIGHER EDUCATION ADMINISTRATOR Body Mass Index 27.44 07/27/2024 9:51 AM HIGHER EDUCATION ADMINISTRATOR Plan of Treatment Not on file Procedures Procedure Name Priority Date/Time Associated Diagnosis Comments POCT LIPID PANEL Routine 07/27/2024 11:0 4 AM HIGHER EDUCATION ADMINISTRATOR Need for lipid screening from Last 3 Months Results * POCT lipid panel (07/27/2024 11:04 AM HIGHER EDUCATION ADMINISTRATOR) Cholesterol, POC 225 mg/dL HDL, POC 62 mg/dL Triglycerides, POC 148 mg/dL LDL Cholesterol POC 134 mg/dL Chol/HDL Ratio, POC 2.1 Non-HDL Cholesterol, POC 163 mg/dL Cholesterol Total, POC 225 mg/dL Capillary blood 07/27/2024 1 1:04 AM HIGHER EDUCATION ADMINISTRATOR Louis Morgan MD POINT OF CARE TEST ORDER BENJAMIN Final Result from Last 3 Months Insurance [employer] P[employer] Care Teams Aeronautical Engineer Relationship Specialty Start Date End Date Melquiades Cuba DO PCP - General Internal Medicine 04/02/21
--- OUTSIDE RECORDS SUMMARY | 2024-08-25 10:42 | XMS_ITS | CONTINUITY OF CARE DOCUMENT ---
Author Name jovani hahn Address Unknown Organization [facility] Address [address] [place] [address] Phone [phone] Care Team Providers Care Staffing Assistant Name Role Phone Meet Momin MD Unavailable MIKHAIL BROWNE DO Unavailable [phone] MIKHAIL BROWNE DO Unavailable PROBLEMS Condition Status Date Provider Notes Pancreatitis active Meet Momin MD RECURR ENT DUE TO MEAT Emphysema active Meet Momin MD Abnormal electrocardiogram active Meet fuchs MD HTN borderline active Meet Momin MD Palpitations;will anguiano active Meet Rushing Tobacco use, quit active Meet Momin MD Health maintenance examination active Meet Momin MD Anemia active eMet Momin MD ENCOUNTERS Date Type Provider Location Encounter Diag nosis - In-person encounter Office Visit Meet Momin MD [facility] AnemiaPancreatitisHealth maintenance examinationTobacco use, quitEmphysemaAbnormal electrocardiogramPalpitations; will wuHTN borderline VITAL SIGNS Date Observation Value Provider blood pressure, diastolic 82 mm[Hg] Me jf Rodriguez blood pressure, systolic 125 mm[Hg] Carolina Rodriguez blood pressure, diastolic 89 mm[Hg] Me jf Rodriguez blood pressure, systolic 154 mm[Hg] Carolina Rodriguez pulse rate 58 /min Rhoda Rodriguez oxygen saturation, oximetry 97 % Rhoda Rodriguez respiratory rate E&M 15 /min Rhoda Rodriguez Body Mass Index (Ratio) 20.08 kg/m2 Cristiana Rodriguez weight E&M 136 [lb_av] Rhoda Rodriguez height E&M 69 [in_i] Rhoda Rodriguez ALLERGIES Allergy Name Onset Date Reaction Criticality Status TRAMADOL High Criticality active CODEINE High Criticality active ASA High Criticality active RESULTS Date Observation Value Provider Reference Range Interpretation Location 1 folate, serum 9.8 NG/MLM [facility] 4.4 - 31.0 1 vitamin b12, serum 568.8 pg/mL [facility] 211.0 - 946.0 1 free thyroxine index 6.9 ??g/dL [facility] 4.4 - 11.4 1 triiodothyronine uptake 1.1 TBI [facility] 0.8 - 1.3 1 thyroxine, serum, total 7.6 ??G/DL [facility] 4.5 - 11.7 1 thyroid stimulating hormone, serum 0.903 ??IU/ML [facility] 0.270 - 4.200 1 pro brain natriuretic peptide 54.4 pg/mL [facility] 0.0 - 125.0 1 very low density lipoproteins 20.4 mg/dL [facility] 5.0 - 40.0 1 LDL/HDL (low-density lipoprotein/high-den sity lipoprotein) ratio 2.2 RATIO [facility] - 1 lipoprotein, beta, serum, point, quantitative, calculated 146.6 (?) [facility] 0.0 - 100.0 High 1 HDL cholesterol, serum 68.0 mg/dL [facility] 45.0 - 65.0 High 1 cholesterol, serum 235.0 mg/dL [facility] 0.0 - 200.0 High 1 triglyceride, serum, fasting 102.0 mg/dL [facility] 0.0 - 150.0 1 lipase, serum 127.0 U/L [facility] 13.0 - 60.0 High 1 ferritin, serum 190.2 ng/mL [facility] 13.0 - 150.0 High 1 anion gap, serum 14.4 [facility] - 1 albumin/globulin ratio, serum 3.6 g/dL [facility] 1.1 - 2.5 High 1 globulin, serum 2.3 [facility] 2.3 - 3.8 1 urea nitrogen/creatinine ratio, serum 17.5 [facility] - 1 Estimated Glomerular Filtration Rate (calc) 78.6 (?) [facility] 59.0 - 1 chloride, serum 101.6 mmol/L [facility] 98.0 - 107.0 1 potassium, serum 4.2 mmol/L [facility] 3.5 - 5.1 1 sodium, serum 141.0 mmol/L [facility] 136.0 - 145.0 1 creatinine, serum 0.8 mg/dL [facility] 0.5 - 1.0 1 carbon dioxide, venous blood 25.0 mmol/L [facility] 22.0 - 29.0 1 albumin, serum 5.2 g/dL [facility] 3.5 - 5.2 1 calcium, serum 9.8 mg/dL [facility] 8.6 - 10.2 1 aspartate aminotransferase (SGOT), serum 17.0 1/L [facility] 0.0 - 32.0 1 alkaline phosphatase, serum 91.0 1/L [facility] 40.0 - 130.0 1 alanine aminotransferase (SGPT), serum 10.0 1/L [facility] 0.0 - 33.0 1 protein, total, serum 7.5 g/dL [facility] 6.6 - 8.7 1 bilirubin, serum, total 0.4 mg/dL [facility] 0.0 - 1.2 1 urea nitrogen, blood 14.0 mg/dL [facility] 6.0 - 20.0 1 blood glucose, random 103.0 mg/dL [facility] 74.0 - 99.0 High 1 amylase, serum 113.0 1/L [facility] 28.0 - 100.0 High 1 red blood cell distribution width, size density 49.3 fL [facility] - 1 immature granulocytes, percentage of total cells, blood 0.3 % [facility] nucleated red blood cells as percent of blood leukocytes 0.0 % [facility] 1 red blood cell (erythrocyte) count, per high power field 0.0 10*3/UL [facility] - 1 eosinophils as percent of blood leukocytes 1.7 % [facility] - 1 neutrophils as percent of blood leukocytes 56.4 % [facility] - 1 Absolute Neutrophils 3.3 CELLS/UL [facility] 1.5 - 7.8 1 basophils as percent of blood leukocytes 0.9 % [facility] - 1 Absolute Basophils 0.1 CELLS/UL [facility] 0.0 - 0.2 1 monocytes as percent of blood leukocytes 6.2 % [facility] - 1 Absolute Monocytes 0.4 CELLS/UL [facility] 0.2 - 1.0 1 lymphocytes as percent of blood leukocytes 34.5 % [facility] Absolute Lymphocytes 2.0 CELLS/UL [facility] 0.9 - 3.9 1 mean platelet volume 10.8 (?) [facility] - 1 platelet count 263.0 THOUSAND/ UL [facility] 100.0 - 400.0 1 mean corpuscular hemoglobin concentration, RBC 31.1 G/DL [facility] 31.0 - 38.0 1 mean corpuscular hemoglobin, RBC 29.4 pg [facility] 25.0 - 35.0 1 mean corpuscular volume, RBC 94.7 fL [facility] 75.0 - 100.0 1 hematocrit, blood 42.5 % [facility] 35.0 - 55.0 1 hemoglobin, blood 13.2 g/dL [facility] 11.5 - 16.5 1 erythrocyte count, whole blood 4.5 MILLION/U L [facility] 3.5 - 5.5 1 iron, serum 86.0 ug/dL [facility] 25.0 - 156.0 1 hemoglobin A1C, blood, as % of total hemoglobin 5.6 % [facility] 4.0 - 6.0 1 reticulocyte count, absolute 0.036 10*6 CELLS/UL [facility] - 1 reticulocyte count, blood, uncorrected 0.79 % [facility] 0.50 - 2.00 HISTORY OF MEDICATION USE No Known Medication SOCIAL HISTORY Date Observation Value Provider smoking status Former smoker Rhoda pichardo smoking, year quit 2014 Rhoda Toya Villagomez cigarette use yes Rhoda Rodriguez smoking status Former smoker Rhoda pichardo FUNCTIONAL STATUS Date Observation Value Provider periodic limb movement index absent (0) Rhoda Michael FAMILY HISTORY Family Member Condition Mother Family History of Co ronary Artery Disease: INSURANCE PROVIDERS Payer name Policy type / Coverage type [place] red constitution party ID [facility] MEDICAID (2) Medicaid [id number] TREATMENT PLAN Date Name Performer Cardiology Meet Momin MD Cardiology: B P today: 154/89 Meet Momin MD Cardiology:HAD NEG C XR PER PT AT [facility] LAST WEEK, WILL ANGUIANO BUT IT MAY BE SOMETHING SHE HAS TO LIVE WITH Meet Momin MD Cardiology:Q IN V2 AND [facility] Jean Carlos denilson Momin MD Cardiology:NEG US 09 Meet stinson MD Cardiology:SEEN ON CXR 12 Meet Momin MD Cardiology:NML CHOL AND RENAL US AND BRAIN CT Meet Momin MD Date Name LIPASE AMYLASE STR - Routine Holter Monitor 24 Hr Mobile Cardiac Tele Complete Echo VITAMIN D, 25-HYDROX Y, LC/MS/MS LIPID PANEL COMPREHENSIVE METABO LIC PANEL W/EGFR THYROID PANEL WITH T SH, 3RD GENERATION PROBNP, N TERMINAL VITAMIN B12 RETICULOCYTE COUNT IRON AND TOTAL IRON BINDING CAPACITY FOLATE, SERUM FERRITIN CBC (INCLUDES DIFF/P LT) DLCO - 62891 FRC - 97288 FVC - 42881 HEMOGLOBIN A1c HISTORY OF PROCEDURES Procedure Date Procedure Name Provider Procedure Notes S tatus Stress EKG Fly andrews MD completed BLOOD COUNT HEMOGLOBIN Meet Momin MD completed FVC - 92522 Meet Momin MD complet ed FRC - 26416 Meet Momin MD complet ed DLCO - 15350 Meet Momin MD comple estrada EKG Meet Momin MD complete d SNOMED-CT: [id number] Current Medications Documented Meet Momin MD completed
[2024-08-25 11:05] LABS: Hemoglobin A1C 5.7 % (<5.7)
[2024-08-25 11:05] LABS: Hematocrit 42.2 % (37.0-47.0); Hemoglobin 13.5 g/dL (12.0-15.0); Mean Corpuscular Hemoglobin 29.5 pg (26-34); Mean Corpuscular Volume 92.3 fl (80-100); Mean Platelet Volume 9.1 fl (7.4-10.4); Platelet Count Result 248 k/mm3 (150-375); Red Blood Count 4.57 M/mm3 (4.2-5.4); White Blood Count 5.1 K/mm3 (4.5-10.0)
[2024-08-25 11:08] LABS: Rheumatoid Factor < 12.0 IU/ML (<12)
[2024-08-25 11:12] LABS: Alanine Aminotransferase 21 U/L (6-35); Albumin Level 5.2 g/dL (3.5-5.1); Alkaline Phosphatase 84 U/L (38-126); Anion Gap 10 mmol/L (4-12); Aspartate Amino Transferase 24 U/L (14-36); Bilirubin,Total 0.6 mg/dL (0.2-1.3); Blood Urea Nitrogen 13 mg/dL (7-17); CRP 0.6 mg/dL (<1.0); Carbon Dioxide 28 mmol/L (22-30); Chloride 102 mmol/L (98-107); Creatine Kinase 95 U/L (30-135); Estimated Glomerular Filt Rate 56; Glucose 104 mg/dL (65-110); Magnesium 2.2 mg/dL (1.6-2.3); Potassium 4.2 mmol/L (3.4-5.0); Sodium 140 mmol/L (137-145); Uric Acid 4.9 mg/dL (2.5-7.5)
[2024-08-25 11:36] LABS: Thyroid Stimulating Hormone 0.981 uIU/mL (0.465-4.680)
[2024-08-25 11:45] LABS: HIV 1/2 Ab P24 Ag Result Negative (Negative)
[2024-08-25 11:55] LABS: Hepatitis B Surface Antigen Negative (Negative)
[2024-08-25 12:13] LABS: Hepatitis B Surface Anti Res Negative; Hepatitis C Virus Antibody Negative (Negative)
[2024-08-25 12:16] LABS: Erythrocyte Sedimentation Rate 9 mm/hr (0-20)
[2024-08-25 12:18] LABS: Folic Acid > 20.0 ng/mL (2.76->20)
[2024-08-25 14:45] LABS: Free T4 Free Thyroxine 1.02 ng/dL (0.78-2.19); Vitamin D 25 Hydroxy 35.4 ng/mL
[2024-08-26 05:34] LABS: Protein, Total 7.4 g/dL (6.1-8.1)
[2024-08-26 10:54] LABS: Creatinine, Random Urine 27 mg/dL (20-275); Total Prot/Creat ratio mg/mg NOTE (0.024-0.184); Total Protein/Creatinine Ratio NOTE mg/g creat (24-184)
[2024-08-26 11:28] LABS: Hepatitis B Core Ab Total NON-REACTIVE (NON-REACTIVE)
[2024-08-26 14:29] LABS: Cyclic Citrullinated Peptide <16 UNITS
[2024-08-26 21:33] LABS: Albumin 4.9 g/dL (3.8-4.8); Alpha 1 Globulin 0.3 g/dL (0.2-0.3); Alpha 2 Globulin 0.7 g/dL (0.5-0.9); Beta 1 Globulin 0.4 g/dL (0.4-0.6); Gamma Globulin 0.7 g/dL (0.8-1.7)
[2024-08-27 12:53] LABS: NIL 0.02 IU/mL; Quantiferon TB Plus, 1T NEGATIVE (NEGATIVE); TB1-NIL 0.05 IU/mL; TB2-NIL 0.07 IU/mL
[2024-08-27 13:28] LABS: Hepatitis B DNA PCR NOT DETECTED (NOT DETECTED); Hepatitis B DNA PCR NOT DETECTED Log IU/mL (NOT DETECTED)
[2024-08-29 12:03] LABS: Vitamin B1 14 nmol/L (8-30)
[2024-08-31 09:23] LABS: Hepatitis Be Antibody NON-REACTIVE (NON-REACTIVE)
== END 2024-08-25 09:42 | disposition home or self-care (01) ==
PROVIDERS: PCP Internal Medicine Rheumatology; Visit Provider Internal Medicine Rheumatology
DX: G62.9 Polyneuropathy, unspecified (principal); R53.83 Other fatigue; M79.18 Myalgia, other site; R73.03 Prediabetes; E55.9 Vitamin D deficiency, unspecified; E53.8 Deficiency of other specified B group vitamins; D50.9 Iron deficiency anemia, unspecified; M18.11 Unilateral primary osteoarthritis of first carpometacarpal joint, right hand; M19.012 Primary osteoarthritis, left shoulder; M17.11 Unilateral primary osteoarthritis, right knee; M16.11 Unilateral primary osteoarthritis, right hip; M19.022 Primary osteoarthritis, left elbow; M25.572 Pain in left ankle and joints of left foot; M25.571 Pain in right ankle and joints of right foot; Z11.4 Encounter for screening for human immunodeficiency virus [HIV]; Z72.89 Other problems related to lifestyle; Z51.81 Encounter for therapeutic drug level monitoring
CPT/HCPCS: 36415; 73030; 73070; 73100; 73120; 73502; 73560; 73600; 73620; 80053; 82306; 82550; 82570; 82607; 82728; 82746; 83036; 83735; 84155; 84156; 84165; 84166; 84207; 84425; 84439; 84443; 84550; 85027; 85652; 86038; 86039; 86140; 86200; 86334; 86335; 86430; 86480; 86703; 86704; 86706; 86707; 86803; 87340; 87517; G0432